=== PATIENT | female | born 1950 | race Hispanic/Latino ===

== ENCOUNTER 2017-03-20 17:19 | Inpatient (IN) | payer MEDICARE ==
[2017-03-20 19:23] LABS: Basophils % (Auto) 0.8 % (0.0-1.8); Eosinophils % (Auto) 0.9 % (0.0-4.3); Hematocrit 38.1 % (30.3-42.9); Hemoglobin 12.5 gm/dl (10.1-14.3); Mean Corpuscular HGB Conc 33 % (30-34); Mean Corpuscular Hemoglobin 30 pg (28-32); Mean Corpuscular Volume 91 fl (79-97); Platelet Count 180 K/mm3 (140-440); Red Blood Count 4.17 M/mm3 (3.65-5.03); Red Cell Distribution Width 13.3 % (13.2-15.2); White Blood Count 6.7 K/mm3 (4.5-11.0)
--- NOTE | 2017-03-20 19:29 | Emergency Department Report ---
ED Neuro Deficit HPI - General Chief Complaint: Weakness Stated Complaint: WEAKNESS Time Seen by Provider: 03/20/17 18:46 Source: patient, family, EMS Mode of arrival: Ambulatory Limitations: No Limitations - History of Present Illness Initial Comments: 66-year-old female presents to the emergency department via EMS complaining of right-sided weakness. Family reports that 4 days ago, the patient had a TIA. Patient states that she was unable to move her right arm at that time and her speech was extremely slurred. EMS was called at that time, but the patient did not go to the hospital because her symptoms had improved. Patient did see her primary care physician the next day. Family states that her physician started the patient on a statin, baby aspirin, and increased her blood pressure medication. An appointment was set up with a neurologist in [facility]. Family states that the patient is unwilling to go downtown for follow-up and they are still awaiting the patient's primary physician's office to contact them about a close her neurologist. Patient states that she has been doing better over the past several days but beginning earlier this morning, began having increasing weakness on her right side. Family states that the patient's speech is not at baseline. They describe it as if the patient's tongue was swollen. There are no other complaints. -: Gradual, days(s) (4) Location: speech, right arm Presenting Symptoms: Present: Weak/Paralyzed One Side, Unable to Speak Clearly History of same: No Place: home Severity: mild Improves With: none Worsens With: none On Anticoagulants: Yes (baby aspirin) Context: gradual onset Associated Symptoms: denies other symptoms Treatments Prior to Arrival: none - Related Data Allergies/Adverse Reactions: Allergies Allergy/AdvReac Type Severity Reaction Status Date / Time No Known Allergies Allergy Unverified 03/20/17 18:29 ED Review of Systems ROS: Stated complaint: WEAKNESS Other details as noted in HPI Comment: All other systems reviewed and negative Neurological: as per HPI, weakness, other (slurred speech) ED Past Medical Hx - Past Medical History Previous Medical History?: Yes Hx Hypertension: Yes Hx CVA: Yes (TIA) Hx Diabetes: Yes Additional medical history: Hypothyroidism - Surgical History Past Surgical History?: Yes Additional Surgical History: partial colectomy; hernia repair x2; thyroidectomy - Family History Family history: no significant - Social History Smoking Status: Never Smoker Substance Use Type: None ED Neuro Physical Exam - General Limitations: No Limitations General appearance: alert, in no apparent distress Suspected Stroke: Yes - Head Head exam: Present: atraumatic, normocephalic - Eye Eye exam: Present: normal appearance, PERRL, EOMI - ENT ENT exam: Present: normal exam, normal orophraynx, mucous membranes moist - Neck Neck exam: Present: normal inspection, full ROM. Absent: tenderness - Respiratory Respiratory exam: Present: normal lung sounds bilaterally. Absent: respiratory distress - Cardiovascular Cardiovascular Exam: Present: regular rate, normal rhythm, normal heart sounds - GI/Abdominal GI/Abdominal exam: Present: soft, normal bowel sounds. Absent: distended, tenderness - Extremities Exam Extremities exam: Present: normal inspection, full ROM. Absent: tenderness - Back Exam Back exam: Present: normal inspection, full ROM. Absent: tenderness - Neurological Exam Neurological exam: Present: alert, oriented X3. Absent: motor sensory deficit - NIHSS Assessment Interval: Baseline 1a. Level of Consciousness: alert 1b. LOC Questions: answers correctly 1c. LOC Commands: performs tasks correctly 2. Best Gaze: normal 3. Visual: no visual loss 4. Facial Palsy: normal symmetrical movement 5b. Motor Arm Right: no drift 5a. Motor Arm Left: no drift 6a. Motor Leg Left: no drift 6b. Motor Leg Right: no drift 7. Limb Ataxia: absent 8. Sensory: normal 9. Best Language: no aphasia 10. Dysarthria: normal 11. Extinction/Inattention: no abnormality Total Score: 0 Stroke Severity: No Stroke Symptoms - Skin Skin exam: Present: warm, dry, intact ED Course Vital Signs 03/20/17 03/20/17 03/20/17 18:13 18:21 18:29 Temperature 98.7 F Pulse Rate 80 Respiratory 16 Rate Blood Pressure 172/73 151/72 Blood Pressure [Left] O2 Sat by Pulse 97 97 97 Oximetry 03/20/17 03/20/17 03/20/17 18:30 18:41 18:51 Temperature Pulse Rate Respiratory Rate Blood Pressure 151/72 151/72 151/72 Blood Pressure [Left] O2 Sat by Pulse 96 97 99 Oximetry 03/20/17 03/20/17 03/20/17 19:00 19:11 19:31 Temperature Pulse Rate 102 H Respiratory 18 Rate Blood Pressure 156/75 156/75 Blood Pressure 156/75 [Left] O2 Sat by Pulse 95 96 97 Oximetry 03/20/17 19:33 Temperature Pulse Rate Respiratory 18 Rate Blood Pressure Blood Pressure [Left] O2 Sat by Pulse Oximetry - Lab Data Result diagrams: 03/20/17 19:13 03/20/17 19:13 Lab Results 03/20/17 03/20/17 03/20/17 Range/Units 19:13 19:13 19:13 WBC 6.7 (4.5-11.0) K/mm3 RBC 4.17 (3.65-5.03) M/mm3 Hgb 12.5 (10.1-14.3) gm/dl Hct 38.1 (30.3-42.9) % MCV 91 (79-97) fl MCH 30 (28-32) pg MCHC 33 (30-34) % RDW 13.3 (13.2-15.2) % Plt Count 180 (140-440) K/mm3 Lymph % (Auto) 20.6 (13.4-35.0) % Collier % (Auto) 7.7 H (0.0-7.3) % Eos % (Auto) 0.9 (0.0-4.3) % Baso % (Auto) 0.8 (0.0-1.8) % Lymph # 1.4 (1.2-5.4) K/mm3 Collier # 0.5 (0.0-0.8) K/mm3 Eos # 0.1 (0.0-0.4) K/mm3 Baso # 0.1 (0.0-0.1) K/mm3 Seg Neutrophils % 70.0 (40.0-70.0) % Seg Neutrophils # 4.7 (1.8-7.7) K/mm3 PT 13.3 (12.2-14.9) Sec. INR 1.02 (0.87-1.13) APTT 25.4 (24.2-36.6) Sec. Thrombin Time (15.1-19.6) Sec. Sodium 143 (137-145) mmol/L Potassium 4.2 (3.6-5.0) mmol/L Chloride 104.6 (98-107) mmol/L Carbon Dioxide 25 (22-30) mmol/L Anion Gap 18 mmol/L BUN 15 (7-17) mg/dL Creatinine 0.7 (0.7-1.2) mg/dL Estimated GFR > 60 ml/min BUN/Creatinine Ratio 21.42 % Glucose 93 (65-100) mg/dL Calcium 9.3 (8.4-10.2) mg/dL Troponin T < 0.010 (0.00-0.029) ng/mL 03/20/17 Range/Units 19:13 WBC (4.5-11.0) K/mm3 RBC (3.65-5.03) M/mm3 Hgb (10.1-14.3) gm/dl Hct (30.3-42.9) % MCV (79-97) fl MCH (28-32) pg MCHC (30-34) % RDW (13.2-15.2) % Plt Count (140-440) K/mm3 Lymph % (Auto) (13.4-35.0) % Collier % (Auto) (0.0-7.3) % Eos % (Auto) (0.0-4.3) % Baso % (Auto) (0.0-1.8) % Lymph # (1.2-5.4) K/mm3 Collier # (0.0-0.8) K/mm3 Eos # (0.0-0.4) K/mm3 Baso # (0.0-0.1) K/mm3 Seg Neutrophils % (40.0-70.0) % Seg Neutrophils # (1.8-7.7) K/mm3 PT (12.2-14.9) Sec. INR (0.87-1.13) APTT (24.2-36.6) Sec. Thrombin Time 15.5 (15.1-19.6) Sec. Sodium (137-145) mmol/L Potassium (3.6-5.0) mmol/L Chloride (98-107) mmol/L Carbon Dioxide (22-30) mmol/L Anion Gap mmol/L BUN (7-17) mg/dL Creatinine (0.7-1.2) mg/dL Estimated GFR ml/min BUN/Creatinine Ratio % Glucose (65-100) mg/dL Calcium (8.4-10.2) mg/dL Troponin T (0.00-0.029) ng/mL - Radiology Data Radiology results: report reviewed, image reviewed CT of the brain shows no acute intracranial abnormality. There appears to be some chronic sequela of atrophy and microvascular angiopathy. - Medical Decision Making Lab and imaging results reviewed and discussed with the patient. Patient is to be admitted by the hospitalist for further evaluation of TIA/stroke. - Differential Diagnosis TIA, CVA, electrolyte disorder - Thrombolytic Inclusion/Exclusion Thrombolytic Exclusion Criteria: Symptom Onset > 3 Hours Critical care attestation.: If time is entered above; I have spent that time in minutes in the direct care of this critically ill patient, excluding procedure time. ED Disposition Clinical Impression: TIA (transient ischemic attack) Qualifiers: Transient cerebral ischemia type: unspecified Qualified Code(s): G45.9 - Transient cerebral ischemic attack, unspecified Disposition: OP ADMITTED IP TO THIS HOSP Is pt being admited?: Yes Condition: Stable Referrals: PRIMARY CARE, [Primary Care Provider] - 3-5 Days Time of Disposition: 19:55
[2017-03-20 19:33] LABS: INR 1.02 (0.87-1.13)
[2017-03-20 19:34] LABS: Partial Thromboplastin Time 25.4 Sec. (24.2-36.6)
[2017-03-20 19:44] LABS: Anion Gap 18 mmol/L; BUN/Creatinine Ratio 21.42; Blood Urea Nitrogen 15 mg/dL (7-17); Calcium 9.3 mg/dL (8.4-10.2); Carbon Dioxide 25 mmol/L (22-30); Chloride 104.6 mmol/L (98-107); Glucose 93 mg/dL (65-100); Potassium 4.2 mmol/L (3.6-5.0); Sodium 143 mmol/L (137-145)
--- NOTE | 2017-03-20 19:47 | Cat Scan Report ---
FINAL REPORT EXAM: CT HEAD/BRAIN WO CON HISTORY: neuro deficits \T\lt; 6hrs or sx present upon awakening TECHNIQUE: CT imaging is acquired through the brain without contrast. Transaxial reformations are provided. PRIORS: None. FINDINGS: Ventricles and CSF spaces are within normal limits. Scattered deep and subcortical white matter hypodense foci are confluent in some areas and are compatible with microvascular angiopathy. No acute intracranial hemorrhage or mass effect. Calvarium and superficial scalp are intact. Hyperostosis frontalis. Partially visualized paranasal sinuses are clear. Mastoids are clear. IMPRESSION: No acute intracranial abnormality. Consider MRI follow-up. There are chronic sequela of atrophy and microvascular angiopathy.
[2017-03-20] MEDS ORDERED: REGLAN PO PRN (19:52)
[2017-03-20] MEDS ORDERED: DUONEB 0.5 MG-3 MG/3 ML SOLN IH PRN (19:52)
[2017-03-20] MEDS ORDERED: SODIUM CHLORIDE FLUSH SYRINGE 10 ML IV PRN (19:52)
[2017-03-20] MEDS ORDERED: DULCOLAX PR PRN (19:52)
[2017-03-20] MEDS ORDERED: TYLENOL PO PRN (19:52)
[2017-03-20] MEDS ORDERED: ZOFRAN IV PRN (19:52)
[2017-03-20] MEDS ORDERED: PHENERGAN PR PRN (19:52)
[2017-03-20] MEDS ORDERED: MILK OF MAGNESIA PO PRN (19:52)
--- NOTE | 2017-03-20 19:52 | History and Physical Report ---
History of Present Illness Chief complaint: I feel weak History of present illness: 66 YO Female with HTN, DM, TIA, Malnutrition, Hypothyroidism presents to ED for evaluation. Pt family states that patient has been experiencing right sided weakness, slurred speech, and right sided weakness for the past 4 days. Symptoms resolved. EMS was called at that time, but the patient did not seek emergency medical care, but chose to see PCP the following day. Pt treated as outpatient with statin, baby aspirin, and adjusting blood pressure medication. Pt instructed to f/u with neurology but did not keep the established appointment. Family states that the patient was unwilling to go downtown.Pt family deny reports of fever, chills, CP, Palpitations, NVD, Falls, trauma, incontinence, skin rashes, productive cough, vertigo, or seizures. Past History Past Medical History: diabetes, hypertension, hyperlipidemia, stroke Past Surgical History: thyroidectomy, hernia repair, bowel surgery Social history: single. denies: smoking, alcohol abuse, prescription drug abuse Family history: diabetes, hypertension Medications and Allergies Allergies Allergy/AdvReac Type Severity Reaction Status Date / Time No Known Allergies Allergy Unverified 03/20/17 18:29 Home Medications Medication Instructions Recorded Confirmed Last Taken Type AtorvaSTATin [Lipitor] 80 mg PO HS 03/21/17 03/21/17 1 Day Ago History Levothyroxine [Synthroid] 88 mcg PO QAM 03/21/17 03/21/17 Unknown History glipiZIDE [glipiZIDE ER] 5 mg PO QAM 03/21/17 03/21/17 Unknown History Review of Systems ROS unobtainable: due to mental status Exam - Constitutional Vitals: Temp Pulse Resp BP Pulse Ox 98.7 F 102 H 18 156/75 97 03/20/17 18:29 03/20/17 19:31 03/20/17 19:33 03/20/17 19:31 03/20/17 19:31 General appearance: Present: mild distress, cachectic - EENT Eyes: Present: PERRL ENT: hearing intact - Respiratory Respiratory: bilateral: diminished - Cardiovascular Rhythm: regular Heart Sounds: Present: S1 & S2 - Extremities Extremities: no ischemia Peripheral Pulses: within normal limits - Abdominal General gastrointestinal: Present: soft, non-tender, non-distended - Integumentary Integumentary: Present: clear, dry, decreased turgor - Musculoskeletal Musculoskeletal: right sided weakness - Psychiatric Psychiatric: no intact judgment & insight, no memory intact - Neurologic Neurologic: focal deficits, no moves all extremities, no gait normal Results - Labs CBC & Chem 7: 03/20/17 19:13 03/20/17 19:13 Labs: Abnormal lab results 03/20/17 Range/Units 19:13 Mcdowell % (Auto) 7.7 H (0.0-7.3) % Assessment and Plan - Patient Problems (1) CVA (cerebral vascular accident) Current Visit: Yes Status: Acute Qualifiers: CVA mechanism: C Precerebral and cerebral artery: P Laterality of affected vessel: L Plan to address problem: Stroke protocol: MRI, MRA brain, Echo, carotid doppler, antiplatelet therapy, PT /OT, Speech therapy, Rehab consult (2) Right hemiparesis Current Visit: Yes Status: Acute Plan to address problem: secondary to CVA, PT consulted, (3) HTN (hypertension) Current Visit: Yes Status: Acute Qualifiers: Hypertension type: H Plan to address problem: Monitor bp q shift, resume home medication (4) Diabetes Current Visit: Yes Status: Acute Qualifiers: Diabetes mellitus type: D Diabetes mellitus complication status: D Diabetes mellitus complication detail: D Diabetic retinopathy severity: D Proliferative retinopathy type: P Diabetes mellitus macular edema: D Diabetes mellitus chcf insulin use: D Laterality: L Chronic kidney disease stage: C Plan to address problem: ADA diet, insulin, accu check (5) DVT prophylaxis Current Visit: Yes Status: Acute
[2017-03-20] MEDS ORDERED: PLAVIX PO ONE (19:58)
--- NOTE | 2017-03-20 20:04 | Admit Criteria Form ---
Admission Criteria Documentation: TRANSIENT ISCHEMIC ATTACK (TIA) Clinical Indications for Admission to Inpatient Care (Place 'X' for any and all applicable criteria): Admission is indicated for ANY ONE of the following(1)(2)(3)(4)(5): [ ]I. Immediate inpatient procedure is needed (eg, endarterectomy). [X ]II. Inpatient admission required rather than observation care (Also use Transient Ischemic Attack (TIA): Observation Care Criteria as appropriate) because of ANY ONE of the following: [X ]a) Focal neurologic signs or symptoms persist or recurring [ ]b) Cardiac arrhythmias of immediate concern [ ]c) Clinically significant cardiac disorder identified that requires inpatient care (eg, severe valvular disease, atrial myxoma, cardiomyopathy) [X ]d) Hypertension requiring inpatient treatment [ ]e) Parenteral anticoagulation required (eg, alternative forms of anticoagulation not appropriate or not feasible) as indicated by ALL of the following(13): [ ]i) Temporary subtherapeutic anticoagulation unacceptable because of high risk of short-term venous or arterial thromboembolism due to ANY ONE of the following(14)(15)(16): [ ]1) Atrial fibrillation suspected as etiology of TIA(17)(18)(19)(20)(21) [ ]2) Venous thromboembolism within past 12 months [ ]3) Underlying malignancy [ ]4) Patient with mechanical cardiac valve(22)( 23) [ ]5) Underlying hypercoagulable state (eg, protein C or protein S deficiency antithrombin deficiency, antiphospholipid antibodies) [ ]6) Patient at temporary high risk of thromboembolism (eg, status post orthopedic surgery) [ ]ii) Contraindications to outpatient use of "bridging" agent or alternative oral anticoagulant[B] as indicated by ALL of the following: [ ]1) Contraindication to outpatient use of low- molecular-weight heparin as "bridging" agent as indicated by ANY ONE of the following(15): [ ]A. Documented current or history of heparin-induced thrombocytopenia(24) [ ]B. Severe thrombocytopenia (eg, platelet count less than 50,000/mm3 ([id number]/L) [ ]C. Documented allergy to heparin, low- molecular-weight heparin, or pork products [ ]D. Renal failure (creatinine clearance less than 30 mL/min/1.73m2 (0.50mL/sec/1.73m2) or on dialysis) [ ]E. Inability to manage self-injection ( eg, by patient, caregiver, or visiting nurse) [ ]2) Contraindication to outpatient use of fondaparinux as "bridging" agent as indicated by ANY ONE of the following(25)(26 )(27)(28): [ ]A. Severe thrombocytopenia (eg, platelet count less than 50,000/mm3 (50 x109/L)) [ ]B.Hypersensitivity to fondaparinux, related drugs, or product components [ ]C.Renal failure (creatinine clearance less than 30 mL/min/1.73m2 (0.50mL/sec/1.73m2) or on dialysis) [ ]D.Inability to manage self-injection ( eg, by patient, caregiver, or visiting nurse [ ]3. Oral direct thrombin inhibitor (eg, dabigatran) or oral coagulation factor Xa inhibitor (eg, rivaroxaban, apixaban) not appropriate as oral anticoagulation (eg, indication not appropriate) or contraindicated (eg, hypersensitivity, creatinine clearance less than 15 mL/min/1.73m2 ( 0.25 mL/sec/1.73m2) or on dialysis). [ ]f) Continuous IV infusion of anticoagulant, platelet inhibitor, vasoactive or antiarrhythmia(18)(19) [ ]g) Other condition, treatment, or monitoring requiring inpatient admission [ ]III. Contraindications and/or Inappropriate clinical situations for Observational Care in patients with Transient Ischemic Attack (TIA), when ANY ONE of the following is required: [ ]a) Patient with persistent or severe neurological deficit 24 [ ]b) Patient with acute CVA or other identified pathology should be admitted to inpatient for further care 25 [ ]IV. General contraindications and/or Inappropriate clinical situations for Observational Care in patients with Transient Ischemic Attack (TIA), when ANY ONE of the following is required: [ ]a) Prediction of prolongation of LOS based on ANY ONE of the following may be considered as a contraindication for observational care 2, 3, 4, 5, 6, 7, 8, 9, 10, 11 [ ]i) Age > 65 yrs. [ ]ii) Patient arriving by ambulance [ ]iii) Patient with high acuity [ ]iv) Patient requiring vital sign monitoring [ ]v) Patient on IV medication [ ]b) Systolic blood pressures 180mmHg 3,12 [ ]c) Patient with altered mental status including delirium and other alteration of consciousness, (3) [ ]d) Patient whose discharge disposition will be to a halfway home or rehabilitation home should not be managed in Emergency Department Observation Unit. CMS rule requires 3 days hospital stay before such placement.3,13 [ ]e) Patient with failure to thrive due to broad array of etiologies 3,16,17 [ ]f) Inability to ambulate 3,14 Extended stay beyond goal length of stay may be needed for(4)(30)(32): [ ]a) Parenteral anticoagulation required [ ]b) Dangerous arrhythmia [ ]c) Cardiac valvular disorder, atrial myxoma, cardiomyopathy [ ]d) Uncontrolled severe hypertension [ ]e) Severe carotid stenosis [ ]f) Active comorbidities (eg, heart failure) [ ]g) Extracranial vertebrobasilar disease(29) [ ]h) Clinical evolution of TIA into cerebrovascular accident (stroke) The original [employer] content created by [employer] has been revised. The portions of thecontent which have been revised are identified through the use of italic text or in bold, and [facility] has neither reviewed nor approved the modified material. All other unmodified content is copyright [employer]. Please see references footnoted in the original [employer] edition 2016 Admission Criteria Met: Yes
[2017-03-20] MEDS ORDERED: PROVENTIL IH PRN (20:18)
[2017-03-20 20:56] LABS: Bacteria,Urine 1+ /HPF (Negative); Bilirubin,Urine NEG (Negative); Blood,Urine NEG (Negative); Ketones,Urine TR mg/dL (Negative); Leukocyte Esterase,Urine LG (Negative); Mucus,Urine FEW /HPF; Nitrite,Urine NEG (Negative); Protein,Urine <15 mg/dL mg/dL (Negative); Urobilinogen,Urine < 2.0 mg/dL (<2.0)
[2017-03-20] MEDS: ZOCOR PO SCH (22:49)
[2017-03-21] MEDS: ASPIRIN PO SCH (13:52)
--- NOTE | 2017-03-21 14:08 | Magnetic Resonance Report ---
FINAL REPORT EXAM: MR BRAIN WO CON HISTORY: stroke TECHNIQUE: MRI of the brain without IV contrast. PRIORS: None currently available. FINDINGS: 11 x 19 mm focal area of restricted diffusion in the left periventricular white matter along the avalos radiata is consistent with acute ischemia. T2/FLAIR hyperintensities in the periventricular and subcortical white matter are nonspecific. Differential diagnosis includes microvascular ischemic disease, demyelinating process, and trauma. Midline structures are unremarkable. There is no tonsillar ectopy. Age appropriate espino-white matter differentiation is noted. There is no hydrocephalus. There is no mass. There is no hemorrhage. There is no midline shift. The CP angles are grossly noted. Major flow voids are present. Paranasal sinuses are unremarkable. Globes are intact. Calvarial signal characteristics are grossly unremarkable. Extracranial soft tissues are intact. IMPRESSION: Focal acute ischemia along the left coronal radiata. Chronic small vessel ischemic disease.
--- NOTE | 2017-03-21 14:10 | Magnetic Resonance Report ---
FINAL REPORT EXAM: MR MRA/MRV HEAD WO CON HISTORY: stroke TECHNIQUE: MRA of the Head without IV contrast. PRIORS: None currently available. FINDINGS: Head: Left vertebral artery contribution to the basilar artery is not evident. Single dominant right vertebral artery suspected. Hypoplastic right P1 segment. Right P2 segment filling through a posterior communicating artery. Left posterior communicating artery also identified. Above findings probably represent congenital variations. There is no aneurysm, dissection, vascular malformation, or significant vascular stenosis. There is no evidence for vasculitis. IMPRESSION: Unremarkable.
--- NOTE | 2017-03-21 17:50 | Progress Note ---
Assessment and Plan Assessment and plan: 1. Acute CVA CT negative, but brain MRI showing focal acute ischemia left avalos radiata Out of window for TPA Lipid panel obtained Started on antiplatelet and statin therapy PT/OT/ST consulted 2. Hypertension Antihypertensives on hold to allow permissive hypertension given acute stroke Goal SBP 140-160 for the first 48 hours 3. Diabetes On glipizide at home but hemoglobin A1c 5.8 Discontinue it Monitoring BS 4. Hypothyroidism Reason levothyroxine 5. DVT/GI prophylaxis History Interval history: Dysarthria, slurred speech; no specific complaints Family at bedside, updated Hospitalist Physical - Constitutional Vitals: Temp Pulse Resp BP Pulse Ox 98.4 F 72 20 167/93 96 03/21/17 08:00 03/21/17 08:00 03/21/17 08:00 03/21/17 08:00 03/21/17 08:00 General appearance: Present: no acute distress - EENT Eyes: Present: PERRL, EOM intact. Absent: scleral icterus, conjunctival injection - Neck Neck: Present: supple, normal ROM. Absent: masses or JVD - Respiratory Respiratory effort: normal Respiratory: bilateral: CTA, negative: rales, rhonchi - Cardiovascular Rhythm: regular Heart Sounds: Present: S1 & S2. Absent: systolic murmur - Extremities Extremities: no ischemia - Abdominal General gastrointestinal: soft, non-tender, non-distended, normal bowel sounds - Integumentary Integumentary: Present: warm, dry. Absent: jaundice, rash - Psychiatric Psychiatric: cooperative - Neurologic Neurologic: other (facial droop, right-sided hemiparesis) Results - Labs CBC & Chem 7: 03/20/17 19:13 03/20/17 19:13 Labs: Laboratory Last Values WBC 6.7 K/mm3 (4.5-11.0) 03/20/17 19:13 RBC 4.17 M/mm3 (3.65-5.03) 03/20/17 19:13 Hgb 12.5 gm/dl (10.1-14.3) 03/20/17 19:13 Hct 38.1 % (30.3-42.9) 03/20/17 19:13 MCV 91 fl (79-97) 03/20/17 19:13 MCH 30 pg (28-32) 03/20/17 19:13 MCHC 33 % (30-34) 03/20/17 19:13 RDW 13.3 % (13.2-15.2) 03/20/17 19:13 Plt Count 180 K/mm3 (140-440) 03/20/17 19:13 Lymph % (Auto) 20.6 % (13.4-35.0) 03/20/17 19:13 [place] % (Auto) 7.7 % (0.0-7.3) H 03/20/17 19:13 Eos % (Auto) 0.9 % (0.0-4.3) 03/20/17 19:13 Baso % (Auto) 0.8 % (0.0-1.8) 03/20/17 19:13 Lymph # 1.4 K/mm3 (1.2-5.4) 03/20/17 19:13 [place] # 0.5 K/mm3 (0.0-0.8) 03/20/17 19:13 Eos # 0.1 K/mm3 (0.0-0.4) 03/20/17 19:13 Baso # 0.1 K/mm3 (0.0-0.1) 03/20/17 19:13 Seg Neutrophils % 70.0 % (40.0-70.0) 03/20/17 19:13 Seg Neutrophils # 4.7 K/mm3 (1.8-7.7) 03/20/17 19:13 PT 13.3 Sec. (12.2-14.9) 03/20/17 19:13 INR 1.02 (0.87-1.13) 03/20/17 19:13 APTT 25.4 Sec. (24.2-36.6) 03/20/17 19:13 Thrombin Time 15.5 Sec. (15.1-19.6) 03/20/17 19:13 Sodium 143 mmol/L (137-145) 03/20/17 19:13 Potassium 4.2 mmol/L (3.6-5.0) 03/20/17 19:13 Chloride 104.6 mmol/L (98-107) 03/20/17 19:13 Carbon Dioxide 25 mmol/L (22-30) 03/20/17 19:13 Anion Gap 18 mmol/L 03/20/17 19:13 BUN 15 mg/dL (7-17) 03/20/17 19:13 Creatinine 0.7 mg/dL (0.7-1.2) 03/20/17 19:13 Estimated GFR > 60 ml/min 03/20/17 19:13 BUN/Creatinine Ratio 21.42 % 03/20/17 19:13 Glucose 93 mg/dL (65-100) 03/20/17 19:13 Hemoglobin A1c 5.8 % (4-6) 03/21/17 05:19 Calcium 9.3 mg/dL (8.4-10.2) 03/20/17 19:13 Troponin T < 0.010 ng/mL (0.00-0.029) 03/20/17 19:13 Triglycerides 86 mg/dL (2-149) 03/21/17 05:19 Cholesterol 107 mg/dL (50-199) 03/21/17 05:19 LDL Cholesterol Direct 44 mg/dL (50-130) L 03/21/17 05:19 HDL Cholesterol 46 mg/dL (40-59) 03/21/17 05:19 Cholesterol/HDL Ratio 2.32 % 03/21/17 05:19 Urine Color Straw (Yellow) 03/20/17 20:30 Urine Turbidity Clear (Clear) 03/20/17 20:30 Urine pH 6.0 (5.0-7.0) 03/20/17 20:30 Ur Specific [place] 1.005 (1.003-1.030) 03/20/17 20:30 Urine Protein <15 mg/dl mg/dL (Negative) 03/20/17 20:30 Urine Glucose (UA) Neg mg/dL (Negative) 03/20/17 20:30 Urine Ketones Tr mg/dL (Negative) 03/20/17 20:30 Urine Blood Neg (Negative) 03/20/17 20:30 Urine Nitrite Neg (Negative) 03/20/17 20:30 Urine Bilirubin Neg (Negative) 03/20/17 20:30 Urine Urobilinogen < 2.0 mg/dL (<2.0) 03/20/17 20:30 Ur Leukocyte Esterase Lg (Negative) 03/20/17 20:30 Urine WBC (Auto) 5.0 /HPF (0.0-6.0) 03/20/17 20:30 Urine RBC (Auto) 1.0 /HPF (0.0-6.0) 03/20/17 20:30 Urine Bacteria (Auto) 1+ /HPF (Negative) 03/20/17 20:30 Urine Mucus Few /HPF 03/20/17 20:30 - Imaging and Cardiology CT Scan - head: report reviewed (no acute abnormality) MRI - head: report reviewed (focal acute ischemia left coronary radiata) Venous US: pending Imaging and Cardiology: ECHO - normal LV function with EF 55-60%, normal diastolic filling
[2017-03-21] MEDS ORDERED: NACL 0.9% 1000 ML 1,000 ML IV ONE (18:20)
[2017-03-21] MEDS: ZOCOR PO SCH (22:07)
[2017-03-22] MEDS: ASPIRIN PO SCH (09:07)
[2017-03-22] MEDS ORDERED: SYNTHROID PO SCH (10:00)
--- NOTE | 2017-03-22 11:42 | Consultation ---
History of Present Illness Consult date: 03/22/17 Requesting physician: MATILDE HERRERA Reason for Consult: stroke Chief complaint: R sided weakness History of present illness: 66 YO F p/w acute onset R sided weakness on 03/20 @ 3:30. Sx are constant. There are no clear aggravating, relieving or temporal factors. Severity was enough to cause inability to effectively use the right side.she affirms slurred speech. She had a brief event lasting 15 mins of similar sx on 03/16 and followed up w/ PCP who placed her on ASA/statin and increased BP meds. Past History Past Medical History: diabetes, hypertension, hyperlipidemia, stroke Past Surgical History: thyroidectomy, hernia repair, bowel surgery Social history: single. denies: smoking, alcohol abuse, prescription drug abuse , IV drug use Family history: diabetes, hypertension Medications and Allergies Allergies Allergy/AdvReac Type Severity Reaction Status Date / Time No Known Allergies Allergy Unverified 03/20/17 18:29 Home Medications Medication Instructions Recorded Confirmed Last Taken Type AtorvaSTATin [Lipitor] 80 mg PO HS 03/21/17 03/21/17 1 Day Ago History Levothyroxine [Synthroid] 88 mcg PO QAM 03/21/17 03/21/17 Unknown History glipiZIDE [glipiZIDE ER] 5 mg PO QAM 03/21/17 03/21/17 Unknown History Active Meds: Active Medications Acetaminophen (Tylenol) 650 mg PO Q4H PRN PRN Reason: Pain, Mild (1-3) Albuterol (Proventil) 2.5 mg IH Q6HRT PRN PRN Reason: Wheezing Aspirin (Aspirin) 325 mg PO QDAY [facility] Last Admin: 03/22/17 09:07 Dose: 325 mg Bisacodyl (Dulcolax) 10 mg NM QDAY PRN PRN Reason: Constipation Levothyroxine Sodium (Synthroid) 88 mcg PO QAM [facility] Last Admin: 03/22/17 09:07 Dose: 88 mcg Magnesium Hydroxide (Milk Of Magnesia) 30 ml PO Q4H PRN PRN Reason: Constipation Metoclopramide HCl (Reglan) 10 mg PO Q6H PRN PRN Reason: Nausea And Vomiting Ondansetron HCl (Zofran) 4 mg IV Q8H PRN PRN Reason: N/V unrelieved by Reglan Promethazine HCl (Phenergan) 25 mg NM Q6H PRN PRN Reason: Nausea And Vomiting Simvastatin (Zocor) 20 mg PO QHS [facility] Last Admin: 03/21/17 22:07 Dose: 20 mg Sodium Chloride (Sodium Chloride Flush Syringe 10 Ml) 10 ml IV PRN PRN PRN Reason: LINE FLUSH Review of Systems All systems: negative Neurological: weakness, change in speech, balance difficulties, gait dysfunction , motor disturbance, no paralysis, no parathesias, no numbness, no tingling, no seizures, no syncope, no sensory deficit Physical Examination - Vital Signs Vital Signs: Vital Signs Pulse Ox 97 03/20/17 18:13 - Constitutional General appearance: comfortable - EENT EENT: Present: ATNC, PERRL, mucous membranes moist, hearing intact, vision intact - Respiratory Respiratory: Present: chest non-tender, normal breath sounds, no respiratory distress - Cardiovascular Cardiovascular: Present: regular rate Extremities: Present: no peripheral edema bilatateraly, no clubbing, cyanosis, no inflammation, no ischemia or petechiae - Gastrointestinal Gastrointestinal: Present: normoactive bowel sounds, soft, non-distended - Integumentary Integumentary: Present: normal - Neurologic Cranial nerve examination: PERRL, EOMI, VFF, V1/V2/V3 grossly intact, tongue midline, intact, intact shoulder shrug, intact cough reflex, Intact Vestibulo- ocular r, intact corneal reflex, facial droop (on R mild), normal palatal elevation Speech examination: other (dysarthria) Sensorimotor examination: hemiparesis (4/5 on R) Motor examination - right side: 4/5: biceps, triceps, wrist flexion, wrist extension, logistics clerk, hip flexors, knee extensors, dorsiflexion, toe extension (EHL) , plantarflexion Motor examination - left side: 5/5: biceps, triceps, wrist flexion, wrist extension, logistics clerk, hip flexors, knee extensors, dorsiflexion, toe extension (EHL) , plantarflexion Detailed sensory examination: intact, light touch, temperature Reflex and gait examination: Babinski's sign (on R) Reflexes: 0: ankle, 3+: bicep, knee, tricep - Musculoskeletal Musculoskeletal: Present: no fluid collection, no pain, normal range of motion - Psychiatric Psychiatric: Present: mood/affect appropriate, cooperative Results - Laboratory Findings CBC and BMP: 03/20/17 19:13 03/20/17 19:13 Abnormal Lab Findings: Abnormal Labs 03/21/17 05:19 LDL Cholesterol Direct 44 L Assessment and Plan 66 YO F Hx HTN/DM2/HLD p/w pure motor acute lacunar stroke confirmed on MRI Brain as infarct in L avalos radiata. CDs/TTE neg. LDL 44. MRA Head neg. Plan and Recommendation: 1. No indication for pharmacologic thrombolysis with IV tPA or mechanical thrombectomy due to last known normal > 6 hrs from presentation. Current NIHSS 4. 2. Telemetry bed w/ Q4 hour neuro checks 3. Can lower MAPs by 10-15% daily to reach goal SBP 120-160 after permissive HTN period 4. Secondary stroke prevention: ASA 325mg Daily x 1 then 81mg QDay & upgrade to full dose statin therapy (Crestor 20mg or 40mg OR Lipitor 40mg or 80mg Daily OR Zocor 40mg QDay) for goal LDL < 70. No firm indication at this point for therapeutic anticoagulation as pt has not had AFib captured on telemetry monitoring. 5. F/E/N: isotonic IVF prn, prn replete, bedside speech/swallow eval prior to PO intake. 6. DVT Prophylaxis 7. Stroke education, PT/OT/Speech Therapy consults, CM evaluation 8. For any changes in neurologic status, pls obtain STAT CTH w/o contrast and call neurology 9. If pt remains stable, no neurologic contraindication to discharge w/ outpt neuro follow up.
--- NOTE | 2017-03-22 12:39 | Consultation ---
History of Present Illness - Reason for Consult Consult date: 03/22/17 Evaluate for Acute IRU - History of Present Illness 66 y.o. female who presented with acute onset of right sided weakness and dysarthria. Initial CT Brain noted to be negative; however, Brain MRI showed acute left avalos radiata infarct. Pt reports improved right sided weakness, however, with ongoing gait and balance deficits; also with ongoing dysarthria; pending FELLER MACHINE OPERATOR evaluation. Consult placed for post-acute placement recommendations. Past History Past Medical History: hypertension, hypothyroidism Past Surgical History: thyroidectomy, hernia repair, bowel surgery Social history: single, lives with family (mother). denies: smoking, alcohol abuse Family history: diabetes, hypertension Medications and Allergies Allergies Allergy/AdvReac Type Severity Reaction Status Date / Time No Known Allergies Allergy Unverified 03/20/17 18:29 Home Medications Medication Instructions Recorded Confirmed Last Taken Type AtorvaSTATin [Lipitor] 80 mg PO HS 03/21/17 03/21/17 1 Day Ago History Levothyroxine [Synthroid] 88 mcg PO [facility] 03/21/17 03/21/17 Unknown History glipiZIDE [glipiZIDE ER] 5 mg PO M 03/21/17 03/21/17 Unknown History Active Meds: Active Medications Acetaminophen (Tylenol) 650 mg PO Q4H PRN PRN Reason: Pain, Mild (1-3) Albuterol (Proventil) 2.5 mg IH Q6HRT PRN PRN Reason: Wheezing Aspirin (Aspirin) 325 mg PO QDAY [facility] Last Admin: 03/22/17 09:07 Dose: 325 mg Bisacodyl (Dulcolax) 10 mg MO QDAY PRN PRN Reason: Constipation Levothyroxine Sodium (Synthroid) 88 mcg PO [facility] Last Admin: 03/22/17 09:07 Dose: 88 mcg Magnesium Hydroxide (Milk Of Magnesia) 30 ml PO Q4H PRN PRN Reason: Constipation Metoclopramide HCl (Reglan) 10 mg PO Q6H PRN PRN Reason: Nausea And Vomiting Ondansetron HCl (Zofran) 4 mg IV Q8H PRN PRN Reason: N/V unrelieved by Reglan Promethazine HCl (Phenergan) 25 mg MO Q6H PRN PRN Reason: Nausea And Vomiting Simvastatin (Zocor) 20 mg PO QHS [facility] Last Admin: 03/21/17 22:07 Dose: 20 mg Sodium Chloride (Sodium Chloride Flush Syringe 10 Ml) 10 ml IV PRN PRN PRN Reason: LINE FLUSH Review of Systems All systems: negative Ears, nose, mouth and throat: no headache Cardiovascular: no chest pain Respiratory: no cough Gastrointestinal: no nausea, no vomiting Neurological: balance difficulties, gait dysfunction Exam - Constitutional Vitals: Vital Signs - 12hr 03/22/17 03/22/17 03/22/17 01:10 03:43 05:34 Temperature 98.5 F 97.8 F Pulse Rate 86 Pulse Rate [ 76 72 Left Radial] Respiratory 20 20 Rate Blood Pressure 154/72 155/70 [Left Radial Artery] O2 Sat by Pulse 98 100 Oximetry General appearance: no acute distress, other (sitting up in bed) - EENT Eyes: EOM intact ENT: hearing intact - Neck Neck: supple, normal ROM - Respiratory Respiratory effort: normal Respiratory: bilateral: CTA - Cardiovascular Rhythm: regular Heart Sounds: Present: S1 & S2 - Extremities Extremities: No edema - Gastrointestinal General gastrointestinal: Present: soft, non-tender, non-distended, normal bowel sounds - Integumentary Integumentary: Present: clear - Neurologic Neurologic: moves all extremities (4/5 throughout), other (mild facial droop; + dysarthria; sensation grossly intact) - Psychiatric Psychiatric: appropriate mood/affect, intact judgment & insight, memory intact, cooperative - Allied health notes Allied health notes reviewed: PT (Moe for transfers; CGA-maxA for gait with noted loss of balance) FIMS assesment as documented by PT/OT/ST: Locomotion- walk/wheelchair Ambulation Distance 100 - Labs CBC & Chem 7: 03/20/17 19:13 03/20/17 19:13 Labs: Laboratory Results - last 72 hr 03/20/17 03/21/17 03/21/17 20:30 05:19 05:19 POC Glucose Hemoglobin A1c 5.8 Triglycerides 86 Cholesterol 107 LDL Cholesterol Direct 44 L HDL Cholesterol 46 Cholesterol/HDL Ratio 2.32 Urine Color Straw Urine Turbidity Clear Urine pH 6.0 Ur Specific [place] 1.005 Urine Protein <15 mg/dl Urine Glucose (UA) Neg Urine Ketones Tr Urine Blood Neg Urine Nitrite Neg Urine Bilirubin Neg Urine Urobilinogen < 2.0 Ur Leukocyte Esterase Lg Urine WBC (Auto) 5.0 Urine RBC (Auto) 1.0 Urine Bacteria (Auto) 1+ Urine Mucus Few 03/21/17 08:11 POC Glucose 81 Hemoglobin A1c Triglycerides Cholesterol LDL Cholesterol Direct HDL Cholesterol Cholesterol/HDL Ratio Urine Color Urine Turbidity Urine pH Ur Specific [place] Urine Protein Urine Glucose (UA) Urine Ketones Urine Blood Urine Nitrite Urine Bilirubin Urine Urobilinogen Ur Leukocyte Esterase Urine WBC (Auto) Urine RBC (Auto) Urine Bacteria (Auto) Urine Mucus Assessment and Plan Patient was assessed and evaluated for Acute Inpatient Rehab Unit. 66 y.o. female with acute left avalos radiata infarct, ongoing dysarthria, dysphagia, unsteady gait. Pt would benefit from from inpatient rehabilitation course to address functional deficits in mobility and self cares. Pt has been participating well with therapies and is thought to be able to participate in 3 hours of therapy including PT/OT/FELLER MACHINE OPERATOR, 5 days per week, and make reasonable functional improvement prior to returning home. Pt previously noted to be independent with functional mobility and self cares, however is now requiring CGA-maxA for bed mobility/transfers/gait with significant balance deficits. Potential barriers/complications that would currently prevent a safe return home or transfer to a lower level of care include impaired mobility, balance, strength; risk for recurrent/extension of CVA, falls, DVT, PE, syncope, parasthesias, headaches, seizures, aspiration, hypotension. Pt has good overall medical prognosis and good rehab potential, good, is motivated to participate, and has good family support at discharge (sister available at discharge). Will need ongoing follow-up for CVA education, HTN management, dysphagia. Pt will be followed by rehab physician at minimum 3 days/week. Pt will require precertification prior to IPR admission, which has been initiated. Anticipate IRU admission when cleared by IM and evaluated by FELLER MACHINE OPERATOR for appropriate diet. Thank you for consultation. - Patient Problems (1) CVA (cerebral vascular accident) Current Visit: Yes Status: Acute Qualifiers: CVA mechanism: C Precerebral and cerebral artery: P Laterality of affected vessel: L (2) Abnormality of gait following cerebrovascular accident (CVA) Current Visit: Yes Status: Acute (3) Dysphagia as late effect of cerebrovascular accident (CVA) Current Visit: Yes Status: Acute (4) Dysarthria as late effect of cerebrovascular accident (CVA) Current Visit: Yes Status: Acute (5) HTN (hypertension) Current Visit: Yes Status: Acute Qualifiers: Hypertension type: essential hypertension Qualified Code(s): I10 - Essential (primary) hypertension
[2017-03-22 15:04] VITALS: BP 145/72
--- NOTE | 2017-03-22 16:50 | Discharge Summary ---
Providers - Providers Date of Admission: 03/20/17 19:52 Date of discharge: 03/22/17 Attending physician: MATILDE HERRERA 03/21/17 07:59 Consult Acute Rehabilitation [CONS] Routine Consulting Provider: LUKE MURRIETA Reason For Exam: cva, weakness 03/21/17 18:22 Speech Therapy Evaluation and Treat [CONS] Routine Reason For Exam: Failed bedside swallow Eval. 03/22/17 11:21 Consult Acute Rehabilitation [CONS] Routine Consulting Provider: LUKE MURRIETA Reason For Exam: stroke 03/22/17 12:40 Consult to Physician [CONS] Routine Consulting Provider: STEPHNAIE HUGHES Reason For Exam: Stroke like symptoms Place consult to:: Dr. Hughes Notified:: Yris ARCOS Phone number called:: Ext [phone] If yes, spoke with:: Voicemail with consult info left for Nuha Dunlap Time called:: 12:37 Primary care physician: MEAT CLERK Hospitalization Reason for admission: difficulty speaking, right-sided weakness Condition: Stable Pertinent studies: CT head MRI/A brain Echocardiogram Carotid Doppler Hospital course: Patient is a 66 years old female with past medical history significant for hypertension, diabetes, hypothyroidism, with a recent TIA, who presented to the hospital for right-sided weakness and speech difficulties. She was diagnosed with acute stroke (left coronary radiata). She was out of window for TPA administration. Was started on antiplatelet and statin therapy. Was also evaluated by PT/OT/ST and was considered a good candidate for acute inpatient rehabilitation. Antihypertensives have been on hold to allow permissive hypertension 48 hours post stroke and SBP remained in 130-140s. Oral antidiabetics discontinued as hemoglobin A1c 5.8. Discharge diagnosis: 1. Acute CVA 2. Hypertension 3. Diabetes - A1C<6 4. Hypothyroidism Disposition: DC/TX INPT REHAB FACILITY Time spent for discharge: 35 minutes Core Measure Documentation - Palliative Care Palliative Care/ Comfort Measures: Not Applicable - Core Measures Any of the following diagnoses?: stroke - Stroke Discharge Requirements Statin for LDL = or >70 mg/dl on DC: Yes Anticoag for atrial fib/atrial flutter: Not Applicable Antithrombotic for ischemic stroke: Yes Exam - Physical Exam Narrative exam: Patient seen and axamined: - Constitutional Vitals: Temp Pulse Resp BP Pulse Ox 97.9 F 102 H 18 145/72 99 03/22/17 08:00 03/22/17 08:00 03/22/17 08:00 03/22/17 08:00 03/22/17 08:00 General appearance: Present: no acute distress - EENT Eyes: Present: PERRL, EOM intact. Absent: scleral icterus, conjunctival injection - Neck Neck: Present: supple. Absent: enlarged thyroid, masses or JVD - Respiratory Respiratory effort: normal Respiratory: bilateral: CTA, negative: rhonchi, wheezing - Cardiovascular Rhythm: regular Heart Sounds: Present: S1 & S2. Absent: systolic murmur - Extremities Extremities: no ischemia - Abdominal General gastrointestinal: Present: soft, non-tender, non-distended, normal bowel sounds - Integumentary Integumentary: Present: warm, dry. Absent: jaundice, rash - Musculoskeletal Musculoskeletal: right sided weakness - Psychiatric Psychiatric: appropriate mood/affect, cooperative - Neurologic Neurologic: other (facial droop, right-sided hemiparesis) Plan Activity: advance as tolerated, fall precautions Diet: low cholesterol, low salt Additional Instructions: Transferred to acute inpatient rehabilitation unit Follow up with: STEPHANIE HUGHES MD [Staff Physician] - 7 Days PRIMARY CARE, [Primary Care Provider] - 3-5 Days (Follow with your PCP when discharged from acute rehabilitation) Prescriptions: Simvastatin [Zocor TAB] 20 mg PO QHS #30 tablet Aspirin [Aspirin TAB] 325 mg PO QDAY #30 tablet Levothyroxine [Synthroid] 88 mcg PO QAM #30 tablet
--- NOTE | 2017-03-24 07:56 | Vascular Lab Report ---
CAROTID DUPLEX STUDY: RIGHT PSVEDV CCA PROX: 94 6 CCA DIST: 6514 ICA PROX: 6015 ICA MID: 6721 ICA DIST:00549 ECA: 134 8 VERT: 66 14 LEFT PSVEDV CCA PROX: 74 9 CCA DIST: 6213 ICA PROX: 4910 ICA MID: 8320 ICA DIST: 9425 ECA: 119 8 VERT: 45 9 REASON FOR EXAM: Stroke. COMMENTS ON THE RIGHT: Doppler frequency analysis is consistent with 16 to 49 percent diameter reduction of the internal carotid artery. Minimal amount of plaque is seen. The common carotid artery is patent. The external carotid artery is patent. The vertebral artery has antegrade flow. COMMENTS ON THE LEFT: Doppler frequency analysis is consistent with 16 to 49 percent diameter reduction of the internal carotid artery. Minimal amount of plaque is seen. The common carotid artery is patent. The external carotid artery is patent. The vertebral artery has antegrade flow. IMPRESSION: Less than 50% diameter reduction in the internal carotid arteries bilaterally. Consider repeat carotid artery duplex in 12 months.
== END 2017-03-22 20:00 | DRG 65 ==
LOC: ED 17:19 → 4A 19:52
PROVIDERS: ADMIT Internal Medicine; ATTEND Internal Medicine
DX: I63.9 Cerebral infarction, unspecified (principal); G81.91 Hemiplegia, unspecified affecting right dominant side; E11.9 Type 2 diabetes mellitus without complications; I10 Essential (primary) hypertension; E03.9 Hypothyroidism, unspecified; I69.391 Dysphagia following cerebral infarction; Z82.49 Family history of ischemic heart disease and other diseases of the circulatory system; Z83.3 Family history of diabetes mellitus
CPT/HCPCS: 36415; 70450; 70544; 70551; 80048; 80061; 81001; 82962; 83036; 84484; 85025; 85610; 85670; 85730; 93306; 93880; G8978-GP; G8979-GP; G8996-GN; G8997-GN; J7030

== ENCOUNTER 2018-11-30 16:42 | Inpatient (IN) | payer MEDICARE ==
[2018-11-30] MEDS ORDERED: NACL 0.9% 500 ML 500 ML IV ONE (17:43)
[2018-11-30] MEDS ORDERED: TYLENOL ONE (17:52)
[2018-11-30] MEDS ORDERED: NACL 0.9% 1000 ML IV ONE (17:54)
[2018-11-30] MEDS ORDERED: TYLENOL PO ONE (17:56)
--- NOTE | 2018-11-30 17:59 | Emergency Department Report ---
HPI - General Chief Complaint: Fever Time Seen by Provider: 11/30/18 17:35 - HPI HPI: Room 2 The patient is a 68-year-old female presenting with a chief complaint of weakness. Family states 2 nights ago patient had a single episode of vomiting. The following day the patient began complaining of diffuse weakness. Patient states she is probably getting up and problem all of her extremities secondary to the weakness. Patient denies dysuria or hematuria but admits to left flank pain. Patient denies history of chest pain, shortness of breath, diarrhea, bright red blood per rectum or melena. When asked how she is feeling currently the patient reports she feels "okay." Location: [See above] Duration: 2 nights Quality: Weakness Severity: Moderate Modifying factors: [see above] Context: [see above] Mode of transportation: [not driving] ED Past Medical Hx - Past Medical History Hx Hypertension: Yes Hx CVA: Yes (TIA) Hx Diabetes: Yes Additional medical history: Hypothyroidism - Surgical History Additional Surgical History: partial colectomy; hernia repair x2; thyroidectomy - Family History Family history: no significant - Social History Smoking Status: Never Smoker Substance Use Type: None - Medications Home Medications: Home Medications Medication Instructions Recorded Confirmed Last Taken Type Aspirin [Aspirin TAB] 325 mg PO DAILY 11/30/18 11/30/18 Unknown History AtorvaSTATin [Lipitor] 20 mg PO DAILY 11/30/18 11/30/18 Unknown History Escitalopram Oxalate [Lexapro] 20 mg PO QAM 11/30/18 11/30/18 Unknown History Levothyroxine [Synthroid] 75 mcg PO DAILY 11/30/18 11/30/18 Unknown History Lisinopril [Zestril TAB] 20 mg PO BID 11/30/18 11/30/18 Unknown History Memantine HCl [Namenda] 5 mg PO BID 11/30/18 11/30/18 Unknown History Metformin HCl [Glucophage] 500 mg PO BID 11/30/18 11/30/18 Unknown History amLODIPine [Norvasc] 5 mg PO DAILY 11/30/18 11/30/18 Unknown History ED Review of Systems ROS: Stated complaint: WEAKNESS Other details as noted in HPI Constitutional: fever, weakness Eyes: denies: eye pain ENT: denies: throat pain Respiratory: denies: shortness of breath Cardiovascular: denies: chest pain Endocrine: no symptoms reported Gastrointestinal: nausea, vomiting. denies: abdominal pain Genitourinary: denies: dysuria, hematuria Musculoskeletal: other (left flank pain) Neurological: denies: headache Physical Exam - Physical Exam Vital Signs: Vital Signs 11/30/18 11/30/18 17:37 17:41 Temperature 101.0 F H 101.1 F H Pulse Rate 108 H 108 H Respiratory 20 20 Rate Blood Pressure 92/80 Blood Pressure 92/50 [Left] O2 Sat by Pulse 94 94 Oximetry Physical Exam: GENERAL: The patient is well-developed well-nourished female lying on stretcher not appearing to be in acute distress. [] HEENT: Normocephalic. Atraumatic. Extraocular motions are intact. Patient has moist mucous membranes. NECK: Supple. Trachea midline CHEST/LUNGS: Clear to auscultation. There is no respiratory distress noted. HEART/CARDIOVASCULAR: Regular. There is tachycardia. There is no gallop rub or murmur. ABDOMEN: Abdomen is soft, nontender. Patient has normal bowel sounds. There is no abdominal distention. SKIN: There is no rash. There is no edema. There is no diaphoresis. NEURO: The patient is awake, alert, and oriented. The patient is cooperative. The patient has normal speech MUSCULOSKELETAL: There is no evidence of acute injury. ED Course Vital Signs 11/30/18 11/30/18 17:37 17:41 Temperature 101.0 F H 101.1 F H Pulse Rate 108 H 108 H Respiratory 20 20 Rate Blood Pressure 92/80 Blood Pressure 92/50 [Left] O2 Sat by Pulse 94 94 Oximetry - Consultations Consultation #1: 11/30/18 20:37 Interventional radiology paged ED Medical Decision Making - Lab Data Result diagrams: 11/30/18 17:59 11/30/18 17:59 Laboratory Tests 11/30/18 11/30/18 11/30/18 17:59 17:59 17:59 WBC 6.5 RBC 3.31 L Hgb 10.5 Hct 31.5 MCV 95 MCH 32 MCHC 33 RDW 13.8 Plt Count 59 L Add Manual Diff Complete Total Counted 100 Seg Neutrophils % Custodial Maintenance Worker Seg Neuts % (Manual) 92.0 H Band Neutrophils % 3.0 Lymphocytes % (Manual) 2.0 L Reactive Lymphs % (Man) 0 Monocytes % (Manual) 2.0 Eosinophils % (Manual) 0 Basophils % (Manual) 0 Metamyelocytes % 1.0 Myelocytes % 0 Promyelocytes % 0 Blast Cells % 0 Nucleated RBC % Not Reportable Seg Neutrophils # Man 6.0 Band Neutrophils # 0.2 Lymphocytes # (Manual) 0.1 L Abs React Lymphs (Man) 0.0 Monocytes # (Manual) 0.1 Eosinophils # (Manual) 0.0 Basophils # (Manual) 0.0 Metamyelocytes # 0.1 Myelocytes # 0.0 Promyelocytes # 0.0 Blast Cells # 0.0 WBC Morphology Not Reportable Hypersegmented Neuts Not Reportable Hyposegmented Neuts Not Reportable Hypogranular Neuts Not Reportable Smudge Cells Not Reportable Toxic Granulation Not Reportable Toxic Vacuolation Not Reportable Dohle Bodies Not Reportable Pelger-Huet Anomaly Not Reportable Janneth Rods Not Reportable Platelet Estimate Appears decreased Clumped Platelets Not Reportable Plt Clumps, EDTA Not Reportable Large Platelets Not Reportable Giant Platelets Not Reportable Platelet Satelliting Not Reportable Plt Morphology Comment Not Reportable RBC Morphology Not Reportable Dimorphic RBCs Not Reportable Polychromasia Not Reportable Hypochromasia Not Reportable Poikilocytosis Not Reportable Anisocytosis 1+ Microcytosis Not Reportable Macrocytosis Not Reportable Spherocytes Not Reportable Pappenheimer Bodies Not Reportable Sickle Cells Not Reportable Target Cells Not Reportable Tear Drop Cells Few Ovalocytes 1+ Helmet Cells Not Reportable [place] Bodies Not Reportable [place] Rings Not Reportable Karissa Cells Not Reportable Bite Cells Not Reportable Crenated Cell Not Reportable Elliptocytes Not Reportable Acanthocytes (Spur) Not Reportable Rouleaux Not Reportable Hemoglobin C Crystals Not Reportable Schistocytes Not Reportable Malaria parasites Not Reportable Yinka Bodies Not Reportable Hem Pathologist Commnt No PT 15.0 H INR 1.14 H VBG pH Sodium 144 Potassium 3.4 L Chloride 106.0 Carbon Dioxide 25 Anion Gap 16 BUN 43 H Creatinine 1.1 Estimated GFR 49 BUN/Creatinine Ratio 39 Glucose 142 H Lactic Acid Calcium 9.1 Total Bilirubin 0.50 AST 32 ALT 20 Alkaline Phosphatase 91 Total Protein 5.4 L Albumin 3.0 L Albumin/Globulin Ratio 1.3 Urine Color Urine Turbidity Urine pH Ur Specific [place] Urine Protein Urine Glucose (UA) Urine Ketones Urine Blood Urine Nitrite Urine Bilirubin Urine Urobilinogen Ur Leukocyte Esterase Urine WBC (Auto) Urine RBC (Auto) Urine Bacteria (Auto) Urine Mucus 11/30/18 11/30/18 11/30/18 17:59 17:59 18:11 WBC RBC Hgb Hct MCV MCH MCHC RDW Plt Count Add Manual Diff Total Counted Seg Neutrophils % Seg Neuts % (Manual) Band Neutrophils % Lymphocytes % (Manual) Reactive Lymphs % (Man) Monocytes % (Manual) Eosinophils % (Manual) Basophils % (Manual) Metamyelocytes % Myelocytes % Promyelocytes % Blast Cells % Nucleated RBC % Seg Neutrophils # Man Band Neutrophils # Lymphocytes # (Manual) Abs React Lymphs (Man) Monocytes # (Manual) Eosinophils # (Manual) Basophils # (Manual) Metamyelocytes # Myelocytes # Promyelocytes # Blast Cells # WBC Morphology Hypersegmented Neuts Hyposegmented Neuts Hypogranular Neuts Smudge Cells Toxic Granulation Toxic Vacuolation Dohle Bodies Pelger-Huet Anomaly Janneth Rods Platelet Estimate Clumped Platelets Plt Clumps, EDTA Large Platelets Giant Platelets Platelet Satelliting Plt Morphology Comment RBC Morphology Dimorphic RBCs Polychromasia Hypochromasia Poikilocytosis Anisocytosis Microcytosis Macrocytosis Spherocytes Pappenheimer Bodies Sickle Cells Target Cells Tear Drop Cells Ovalocytes Helmet Cells [place] Bodies [place] Rings Karissa Cells Bite Cells Crenated Cell Elliptocytes Acanthocytes (Spur) Rouleaux Hemoglobin C Crystals Schistocytes Malaria parasites Yinka Bodies Hem Pathologist Commnt PT INR VBG pH 7.353 Sodium Potassium Chloride Carbon Dioxide Anion Gap BUN Creatinine Estimated GFR BUN/Creatinine Ratio Glucose Lactic Acid 3.40 H* Calcium Total Bilirubin AST ALT Alkaline Phosphatase Total Protein Albumin Albumin/Globulin Ratio Urine Color Yellow Urine Turbidity Slightly-cloudy Urine pH 5.0 Ur Specific [place] 1.014 Urine Protein 100 mg/dl Urine Glucose (UA) Neg Urine Ketones Neg Urine Blood Lg Urine Nitrite Neg Urine Bilirubin Neg Urine Urobilinogen < 2.0 Ur Leukocyte Esterase Tr Urine WBC (Auto) 7.0 H Urine RBC (Auto) > 182.0 Urine Bacteria (Auto) 1+ Urine Mucus Few 11/30/18 11/30/18 19:30 19:30 WBC RBC Hgb Hct MCV MCH MCHC RDW Plt Count Add Manual Diff Total Counted Seg Neutrophils % Seg Neuts % (Manual) Band Neutrophils % Lymphocytes % (Manual) Reactive Lymphs % (Man) Monocytes % (Manual) Eosinophils % (Manual) Basophils % (Manual) Metamyelocytes % Myelocytes % Promyelocytes % Blast Cells % Nucleated RBC % Seg Neutrophils # Man Band Neutrophils # Lymphocytes # (Manual) Abs React Lymphs (Man) Monocytes # (Manual) Eosinophils # (Manual) Basophils # (Manual) Metamyelocytes # Myelocytes # Promyelocytes # Blast Cells # WBC Morphology Hypersegmented Neuts Hyposegmented Neuts Hypogranular Neuts Smudge Cells Toxic Granulation Toxic Vacuolation Dohle Bodies Pelger-Huet Anomaly Janneth Rods Platelet Estimate Clumped Platelets Plt Clumps, EDTA Large Platelets Giant Platelets Platelet Satelliting Plt Morphology Comment RBC Morphology Dimorphic RBCs Polychromasia Hypochromasia Poikilocytosis Anisocytosis Microcytosis Macrocytosis Spherocytes Pappenheimer Bodies Sickle Cells Target Cells Tear Drop Cells Ovalocytes Helmet Cells [place] Bodies [place] Rings [place] Cells Bite Cells Crenated Cell Elliptocytes Acanthocytes (Spur) Rouleaux Hemoglobin C Crystals Schistocytes Malaria parasites Yinka Bodies Hem Pathologist Commnt PT INR VBG pH Sodium Potassium Chloride Carbon Dioxide Anion Gap BUN Creatinine Estimated GFR BUN/Creatinine Ratio Glucose Lactic Acid 2.00 1.90 Calcium Total Bilirubin AST ALT Alkaline Phosphatase Total Protein Albumin Albumin/Globulin Ratio Urine Color Urine Turbidity Urine pH Ur Specific [place] Urine Protein Urine Glucose (UA) Urine Ketones Urine Blood Urine Nitrite Urine Bilirubin Urine Urobilinogen Ur Leukocyte Esterase Urine WBC (Auto) Urine RBC (Auto) Urine Bacteria (Auto) Urine Mucus - EKG Data -: EKG Interpreted by Me EKG shows normal: sinus rhythm Rate: tachycardia (106 bpm) - EKG Data When compared to previous EKG there are: previous EKG unavailable Interpretation: other (no ischemic changes seen) - Radiology Data Radiology results: report reviewed (chest x-ray, CT abdomen and pelvis), image reviewed (chest x-ray, CT abdomen and pelvis) interpreted by me: Chest x-ray- slightly increased haziness to the right lung periphery but no definite focal infiltrates. No pneumothorax. Right lower lobe pulmonary nodule [facility] [address] [place] [address] XRay Report Signed Patient: LONNIE ALAMO MR#: [id number] : 1950 Acct:[id number] Age/Sex: 68 / F ADM Date: 11/30/18 Loc: ED Attending Dr: Ordering Physician: MARY ANN BARNES MD Date of Service: 11/30/18 Procedure(s): XR chest 1V ap Accession Number(s): [id number] cc: MARY ANN BARNES MD Fluoro Time In Minutes: FINAL REPORT EXAM: XR CHEST 1V AP HISTORY: possible Sepsis TECHNIQUE: u pright single view chest PRIORS: None. FINDINGS: Cardiac and mediastinal contours are unremarkable. No focal pulmonary infiltrate is identified. No pleural fluid collection seen. Pulmonary vasculature is unremarkable. Noted is a calcified granuloma in the right midlung. IMPRESSION: Negative single-view chest Transcribed By: [facility] Dictated By: ADONAY MORRISON MD Electronically Authenticated By: ADONAY MORRISON MD Signed Date/Time: 11/30/181937 DD/ 40 TD/TT: 11/30/181940 [place] [address] Cat Scan Report Signed Patient: LONNIE ALAMO MR#: [id number] : 1950 Acct:[id number] Age/Sex: 68 / F ADM Date: 11/30/18 Loc: ED Attending Dr: Ordering Physician: MARY ANN BARNES MD Date of Service: 11/30/18 Procedure(s): CT abdomen pelvis wo con Accession Number(s): [id number] cc: MARY ANN BARNES MD FINAL REPORT PROCEDURE: CT abdomen and pelvis without contrast. TECHNIQUE: Computerized axial tomography of the abdomen and pelvis was performed without intravenous contrast. This study is performed without intravascular contrast material and its sensitivity for abdominal and pelvic pathology, including neoplasms, inflammation, abscess, free fluid, thrombosis, arterial dissection and infarction, is reduced compared with a contrast enhanced study. HISTORY: Left flank pain, fever. COMPARISON: No prior studies are available for comparison. FINDINGS: There is some subsegmental atelectasis in the dependent portions of both lower lobes. There are no pleural effusions. The heart size is normal. There are some focal masses of low attenuation within the liver. These are fairly sharply defined. They may represent hepatic cysts. The gallbladder is distended. There is no biliary dilatation. The pancreas and spleen are grossly normal. The adrenal glands are not enlarged. Both kidneys appear normal in size. There are approximately 10 small nonobstructing calculi in the right kidney. The largest is in the middle 3rd measuring 3.2 millimeters. There are at least 12 nonobstructing calculi in the left kidney. The largest fills a lower pole calyx, measuring 16.2 millimeters by 9.9 millimeters in cross-section. There is moderate left hydronephrosis and hydroureter. There is a triangular shaped obstructing calculus in the distal left ureter. This measures 7.1 millimeters by 5.8 millimeters in cross-section. This calculus is located approximately 1 centimeter from the ureterovesical junction. There is some infiltration of the fat surrounding the left kidney consistent with acute obstruction. The abdominal aorta has a normal caliber. There is some dense atherosclerotic calcification in the abdominal aorta and both common iliac arteries. There is no definite retroperitoneal adenopathy. The unopacified gastrointestinal tract is unremarkable. The appendix is not identified. The bladder is nearly empty. I believe the uterus has been removed. The regional skeleton appears intact. IMPRESSION: Probable hepatic cysts. 7.1 millimeter obstructing calculus in the distal left ureter. Moderate left hydronephrosis and hydroureter. Numerous bilateral nonobstructing renal calculi. Transcribed By: [facility] Dictated By: MARLENI RUSS MD Electronically Authenticated By: MARLENI RUSS MD Signed Date/Time: 11/30/182024 DD/ 27 TD/TT: 11/30/182027 - Differential Diagnosis pyelonephritis, sepsis, dehydration, pneumonia Critical care attestation.: If time is entered above; I have spent that time in minutes in the direct care of this critically ill patient, excluding procedure time. ED Disposition Clinical Impression: Sepsis, Renal colic on left side, Fever Disposition: OP ADMIT IP TO THIS HOSP Is pt being admited?: Yes Does the pt Need Aspirin: No Condition: Fair Referrals: PRIMARY CARE, [Primary Care Provider] - 3-5 Days Time of Disposition: 21:07 (hospitalist paged (Dr Gonsalez))
[2018-11-30 18:28] LABS: Hematocrit 31.5 % (30.3-42.9); Hemoglobin 10.5 gm/dl (10.1-14.3); Mean Corpuscular HGB Conc 33 % (30-34); Mean Corpuscular Volume 95 fl (79-97); Red Blood Count 3.31 M/mm3 (3.65-5.03); Red Cell Distribution Width 13.8 % (13.2-15.2)
[2018-11-30 18:32] LABS: Bacteria,Urine 1+ /HPF (Negative); Bilirubin,Urine NEG (Negative); Blood,Urine LG (Negative); Color,Urine Yellow (Yellow); Mucus,Urine FEW /HPF; Urobilinogen,Urine < 2.0 mg/dL (<2.0)
[2018-11-30 18:34] LABS: RBC,Urine > 182.0 /HPF (0.0-6.0)
[2018-11-30 18:37] LABS: INR 1.14 (0.87-1.13)
[2018-11-30 18:42] LABS: Calcium 9.1 mg/dL (8.4-10.2)
[2018-11-30 19:18] LABS: Band Neutrophils # (Manual) 0.2 K/mm3; Basophils % (Manual) 0 % (0.0-1.8); Eosinophils % (Manual) 0 % (0.0-4.3); Total Cells Counted 100
[2018-11-30 19:20] LABS: Anisocytosis 1+; Ovalocytes 1+; Platelet Estimate Appears Decreased; Tear Drop Cells Few
[2018-11-30 19:21] LABS: Platelet Count 59 K/mm3 (140-440)
--- NOTE | 2018-11-30 19:38 | XRay Report ---
FINAL REPORT EXAM: XR CHEST 1V AP HISTORY: possible Sepsis TECHNIQUE: upright single view chest PRIORS: None. FINDINGS: Cardiac and mediastinal contours are unremarkable. No focal pulmonary infiltrate is identified. No pleural fluid collection seen. Pulmonary vasculature is unremarkable. Noted is a calcified granuloma in the right midlung. IMPRESSION: Negative single-view chest
[2018-11-30] MEDS ORDERED: NACL 0.9% 1000 ML 1,000 ML IV ONE ×2 (19:53→19:55)
[2018-11-30] MEDS ORDERED: ROCEPHIN/NS 1 GM/50 ML 1 GM/50 ML BAG IV SCH (20:00)
--- NOTE | 2018-11-30 20:25 | Cat Scan Report ---
FINAL REPORT PROCEDURE: CT abdomen and pelvis without contrast. TECHNIQUE: Computerized axial tomography of the abdomen and pelvis was performed without intravenous contrast. This study is performed without intravascular contrast material and its sensitivity for ab dominal and pelvic pathology, including neoplasms, inflammation, abscess, free fluid, thrombosis, art erial dissection and infarction, is reduced compared with a contrast enhanced study. HISTORY: Left flank pain, fever. COMPARISON: No prior studies are available for comparison. FINDINGS: There is some subsegmental atelectasis in the dependent portions of both lower lobes. There are no pl eural effusions. The heart size is normal. There are some focal masses of low attenuation within the liver. These are fairly sharply defined. They may represent hepatic cysts. The gallbladder is distend ed. There is no biliary dilatation. The pancreas and spleen are grossly normal. The adrenal glands ar e not enlarged. Both kidneys appear normal in size. There are approximately 10 small nonobstructing c alculi in the right kidney. The largest is in the middle 3rd measuring 3.2 millimeters. There are at least 12 nonobstructing calculi in the left kidney. The largest fills a lower pole calyx, measuring 1 6.2 millimeters by 9.9 millimeters in cross-section. There is moderate left hydronephrosis and hydrou reter. There is a triangular shaped obstructing calculus in the distal left ureter. This measures 7.1 millimeters by 5.8 millimeters in cross-section. This calculus is located approximately 1 centimeter from the ureterovesical junction. There is some infiltration of the fat surrounding the left kidney consistent with acute obstruction. The abdominal aorta has a normal caliber. There is some dense athe rosclerotic calcification in the abdominal aorta and both common iliac arteries. There is no definite retroperitoneal adenopathy. The unopacified gastrointestinal tract is unremarkable. The appendix is not identified. The bladder is nearly empty. I believe the uterus has been removed. The regional skel eton appears intact. IMPRESSION: Probable hepatic cysts. 7.1 millimeter obstructing calculus in the distal left ureter. Moderate left hydronephrosis and hydroureter. Numerous bilateral nonobstructing renal calculi.
--- NOTE | 2018-11-30 20:47 | Event Note ---
Date: 11/30/18 68 year old female who has not been eating or drinking much with emesis presents with fever, left flank pain and left sided distal ureteral calculi. HR has improved with NS bolus. BP still boarderline hypotensive. Febrile previously. Patient will likely need multiple liters of fluid resuscitation and antibiotics. Recommend fluid resuscitation which is being performed by ED. Recommend board spectrum antibiotics with zosyn and vanc. Recommend NPO after MN. Recommend urology consult tomorrow. Can then plan for either nephrostomy tube or ureteral stent placement tomorrow. If situation changes, can consider earlier placement.
[2018-11-30] MEDS ORDERED: VANCOMYCIN/NS 1 GM/250 ML 1 GM/250 ML BAG IV ONE (20:52)
[2018-11-30] MEDS ORDERED: MAXIPIME/NS 1 GM/100 ML 1 GM/100 ML BAG IV ONE (21:08)
[2018-11-30] MEDS ORDERED: VANCOMYCIN 750 MG in NACL 0.9% 250ML 250 ML IV ONE (21:15)
--- NOTE | 2018-11-30 21:43 | History and Physical Report ---
History of Present Illness Date of examination: 11/30/18 History of present illness: 68-year-old woman with a history of hypertension, diabetes, CVA, hypothyroidism comes emergency room with complaints of generalized weakness since Wednesday. Also had one episodes of nausea and vomiting on Wednesday evening. She complains of left flank pain, sharp, intermittent and 5 minutes, intensity 7/10, no radiation, cannot identifying exacerbating or relieving factors. No hematuria, positive urinary frequency Review of systems Constitutional: no weight loss, chills, fever Ears, eyes, nose, mouth and throat: no nasal congestion, no nasal discharge, no sinus pressure, no vision change, no red eye. Neck: No neck pain or rigidity. Cardiovascular: no palpitations, chest pain Respiratory: no cough, shortness of breath Gastrointestinal: no hematochezia, abdominal pain Genitourinary : no hematuria Musculoskeletal: no joint swelling or muscle ache Integumentary: no rash, no pruritis Neurological: no parathesias, no focal weakness Endocrine: no cold or heat intolerance, no polyuria or polydipsia Hematologic/Lymphatic: no easy bruising, no easy bleeding, no gland swelling Allergic/Immunologic: no urticaria, no angioedema. PAST MEDICAL HISTORY: hypertension, diabetes, CVA, hypothyroidism PAST SURGICAL HISTORY: Partial colectomy, hernia repair 2, thyroidectomy SOCIAL HISTORY: Denies alcohol, drugs, tobacco FAMILY HISTORY: Hypertension Medications and Allergies Allergies Allergy/AdvReac Type Severity Reaction Status Date / Time No Known Allergies Allergy Unverified 03/20/17 18:29 Home Medications Medication Instructions Recorded Confirmed Last Taken Type RX: Aspirin [Aspirin TAB] 325 mg PO DAILY 11/30/18 11/30/18 Unknown History RX: AtorvaSTATin [Lipitor] 20 mg PO DAILY 11/30/18 11/30/18 Unknown History RX: Escitalopram Oxalate [Lexapro] 20 mg PO QAM 11/30/18 11/30/18 Unknown History RX: Levothyroxine [Synthroid] 75 mcg PO DAILY 11/30/18 11/30/18 Unknown History RX: Lisinopril [Zestril TAB] 20 mg PO BID 11/30/18 11/30/18 Unknown History RX: Memantine HCl [Namenda] 5 mg PO BID 11/30/18 11/30/18 Unknown History RX: Metformin HCl [Glucophage] 500 mg PO BID 11/30/18 11/30/18 Unknown History RX: amLODIPine [Norvasc] 5 mg PO DAILY 11/30/18 11/30/18 Unknown History RX: Docusate Sodium [Colace CAP] 100 mg PO BID capsule 12/13/18 Unknown Rx RX: Insulin NPH/Regular [NovoLIN 4 unit SUB-Q BIDDIAB units 12/13/18 Unknown Rx 70/30] RX: Insulin Regular, Human 0 units SUB-Q ACHS units 12/13/18 Unknown Rx [HumuLIN R] Active Meds: Active Medications Ceftriaxone Sodium (Rocephin/Ns 1 Gm/50 Ml) 1 gm in 50 mls @ 100 mls/hr IV Q24HR KEVON; Protocol Stop: 12/02/18 10:29 Vancomycin HCl 750 mg/ Sodium (Chloride) 265 mls @ 166.667 mls/hr IV ONCE ONE Stop: 11/30/18 22:50 Exam - Physical Exam Narrative exam: General Apperance: The patient lying in bed, breathing comfortable HEENT: Normocephalic, atraumatic. Pupils equally round and reactive to light, EOMI, no sclericterus or JVD or thyromegaly or nodule. , no carotid bruit, mucous membranes moist, no exudate or erythema Heart: S1-S2, regular is rhythm Lungs: Clear to auscultation bilaterally, breathing comfortable Abdomen: Positive bowel sounds, soft, nontender, nondistended, no organomegaly Extremities: No edema cyanosis clubbing, left CVA tenderness Skin: no rash, nodule, warm and dry Neuro: cranial nerves 2-12 intact, speech is fluent, motor/sensory intact - Constitutional Vitals: Temp Pulse Resp BP Pulse Ox 99.1 F 88 17 91/49 100 11/30/18 18:37 11/30/18 20:00 11/30/18 20:00 11/30/18 20:00 11/30/18 20:00 Results - Labs CBC & Chem 7: 12/06/18 05:04 12/10/18 05:30 Labs: Abnormal lab results 11/30/18 11/30/18 11/30/18 Range/Units 17:59 17:59 17:59 RBC 3.31 L (3.65-5.03) M/mm3 Plt Count 59 L (140-440) K/mm3 Seg Neuts % (Manual) 92.0 H (40.0-70.0) % Lymphocytes % (Manual) 2.0 L (13.4-35.0) % Lymphocytes # (Manual) 0.1 L (1.2-5.4) K/mm3 PT 15.0 H (12.2-14.9) Sec. INR 1.14 H (0.87-1.13) Potassium 3.4 L (3.6-5.0) mmol/L BUN 43 H (7-17) mg/dL Glucose 142 H (65-100) mg/dL Lactic Acid (0.7-2.0) mmol/L Total Protein 5.4 L (6.3-8.2) g/dL Albumin 3.0 L (3.9-5) g/dL Urine WBC (Auto) (0.0-6.0) /HPF 11/30/18 11/30/18 Range/Units 17:59 18:11 RBC (3.65-5.03) M/mm3 Plt Count (140-440) K/mm3 Seg Neuts % (Manual) (40.0-70.0) % Lymphocytes % (Manual) (13.4-35.0) % Lymphocytes # (Manual) (1.2-5.4) K/mm3 PT (12.2-14.9) Sec. INR (0.87-1.13) Potassium (3.6-5.0) mmol/L BUN (7-17) mg/dL Glucose (65-100) mg/dL Lactic Acid 3.40 H* (0.7-2.0) mmol/L Total Protein (6.3-8.2) g/dL Albumin (3.9-5) g/dL Urine WBC (Auto) 7.0 H (0.0-6.0) /HPF - Imaging and Cardiology CT scan - abdomen: report reviewed CT scan - pelvis: report reviewed Assessment and Plan Assessment left hydronephrosis, hydroureter left sided distal ureteral calculi. Urinary tract infection Relative hypotension Diabetes History of CVA Plan Admit to medicine Start IV antibiotics, follow cultures Interventional radiologist has been consulted to see the patient Check fingersticks, DVT prophylaxis
[2018-11-30] MEDS ORDERED: PERCOCET 5/325 PO PRN (22:33)
[2018-11-30] MEDS ORDERED: SODIUM CHLORIDE FLUSH SYRINGE 10 ML IV PRN (22:33)
[2018-11-30] MEDS ORDERED: TYLENOL PO PRN (22:33)
[2018-11-30] MEDS ORDERED: ZOFRAN IV PRN (22:33)
[2018-12-01] MEDS ORDERED: OMNIPAQUE (300 MG) IR ONE
[2018-12-01] MEDS ORDERED: WATER FOR IRRIG STERILE IR ONE
[2018-12-01] MEDS ORDERED: D50W (25GM) Syringe IV PRN (02:54)
[2018-12-01] MEDS ORDERED: ZOSYN/NS 2.25 GM/50ML 2.25 GM/50 ML BAG IV SCH (06:00)
[2018-12-01] MEDS ORDERED: ZOSYN/NS 3.375GM/50ML 3.375 GM/50 ML BAG IV SCH (06:00)
[2018-12-01 06:30] LABS: Hematocrit 30.5 % (30.3-42.9); Hemoglobin 10.3 gm/dl (10.1-14.3); Mean Corpuscular HGB Conc 34 % (30-34); Mean Corpuscular Volume 96 fl (79-97); Red Blood Count 3.18 M/mm3 (3.65-5.03); Red Cell Distribution Width 14.7 % (13.2-15.2)
[2018-12-01 06:32] LABS: Platelet Count 54 K/mm3 (140-440)
[2018-12-01 07:24] LABS: Band Neutrophils # (Manual) 4.7 K/mm3; Basophils % (Manual) 0 % (0.0-1.8); Eosinophils % (Manual) 0 % (0.0-4.3); Total Cells Counted 100
[2018-12-01 07:25] LABS: Anisocytosis 1+; Burr Cells Few; Ovalocytes 1+; Platelet Estimate Consistent w Auto; Poikilocytosis 1+
[2018-12-01] MEDS: ZOSYN/NS 2.25 GM/50ML 2.25 GM/50 ML BAG IV SCH ×3 (08:03→22:05)
--- NOTE | 2018-12-01 09:37 | Consultation ---
History of Present Illness - Reason for Consult Consult date: 12/01/18 Left flank pain with fever - History of Present Illness 68-year-old woman with a history of hypertension, diabetes, CVA, hypothyroidism comes emergency room with complaints of generalized weakness since Wednesday. Had one episodes of nausea and vomiting yesterday. Has had poor PO intake. She complains of left flank pain, sharp, intermittent and 5 minutes, intensity 7/10, no radiation, Ganesh identifying exacerbating or relieving factors. No hematuria, positive urinary frequency. CT scan demonstrates obstructing left ureteral calculi with left-sided hydronephrosis. Patient endorses left-sided flank pain and has left-sided costovertebral tenderness. Review of systems Constitutional: no weight loss, chills, fever Ears, eyes, nose, mouth and throat: no nasal congestion, no nasal discharge, no sinus pressure, no vision change, no red eye. Neck: No neck pain or rigidity. Cardiovascular: no palpitations, chest pain Respiratory: no cough, shortness of breath Gastrointestinal: no hematochezia, abdominal pain Genitourinary : no hematuria Musculoskeletal: no joint swelling or muscle ache Integumentary: no rash, no pruritis Neurological: no parathesias, no focal weakness Endocrine: no cold or heat intolerance, no polyuria or polydipsia Hematologic/Lymphatic: no easy bruising, no easy bleeding, no gland swelling Allergic/Immunologic: no urticaria, no angioedema. PAST MEDICAL HISTORY: hypertension, diabetes, CVA, hypothyroidism PAST SURGICAL HISTORY: Partial colectomy, hernia repair 2, thyroidectomy SOCIAL HISTORY: Denies alcohol, drugs, tobacco FAMILY HISTORY: Hypertension Medications and Allergies Allergies Allergy/AdvReac Type Severity Reaction Status Date / Time No Known Allergies Allergy Unverified 03/20/17 18:29 Home Medications Medication Instructions Recorded Confirmed Last Taken Type Aspirin [Aspirin TAB] 325 mg PO DAILY 11/30/18 11/30/18 Unknown History AtorvaSTATin [Lipitor] 20 mg PO DAILY 11/30/18 11/30/18 Unknown History Escitalopram Oxalate [Lexapro] 20 mg PO QAM 11/30/18 11/30/18 Unknown History Levothyroxine [Synthroid] 75 mcg PO DAILY 11/30/18 11/30/18 Unknown History Lisinopril [Zestril TAB] 20 mg PO BID 11/30/18 11/30/18 Unknown History Memantine HCl [Namenda] 5 mg PO BID 11/30/18 11/30/18 Unknown History Metformin HCl [Glucophage] 500 mg PO BID 11/30/18 11/30/18 Unknown History amLODIPine [Norvasc] 5 mg PO DAILY 11/30/18 11/30/18 Unknown History Active Meds: Active Medications Acetaminophen (Tylenol) 650 mg PO Q4H PRN PRN Reason: Pain MILD(1-3)/Fever >100.5/SOLIS Dextrose (D50w (25gm) Syringe) 50 ml IV PRN PRN PRN Reason: Hypoglycemia Enoxaparin Sodium (Lovenox) 30 mg SUB-Q QDAY KEVON Sodium Chloride (Nacl 0.9% 1000 Ml) 1,000 mls @ 100 mls/hr IV DIRECT KEVON Piperacillin Sod/Tazobactam Sod (Zosyn/Ns 2.25 Gm/50ml) 2.25 gm in 50 mls @ 100 mls/hr IV Q8HR KEVON; Protocol Last Admin: 12/01/18 08:03 Dose: 100 mls/hr Documented by: Ondansetron HCl (Zofran) 4 mg IV Q8H PRN PRN Reason: Nausea And Vomiting Oxycodone/Acetaminophen (Percocet 5/325) 1 tab PO Q6H PRN PRN Reason: Pain, Moderate (4-6) Sodium Chloride (Sodium Chloride Flush Syringe 10 Ml) 10 ml IV BID KEVON Sodium Chloride (Sodium Chloride Flush Syringe 10 Ml) 10 ml IV PRN PRN PRN Reason: LINE FLUSH Review of Systems All systems: negative (see HPI) Exam - Constitutional Vitals: Temp Pulse Resp BP Pulse Ox 99.1 F 95 H 25 H 106/52 96 11/30/18 18:37 12/01/18 08:15 12/01/18 08:15 12/01/18 08:15 12/01/18 08:15 General appearance: Present: mild distress (left flank pain) - EENT Eyes: Present: EOM intact ENT: hearing intact - Respiratory Respiratory effort: normal - Extremities Extremities: normal temperature, normal color - Abdominal General gastrointestinal: Present: other (left CVT) - Psychiatric Psychiatric: appropriate mood/affect, cooperative Results - Labs CBC & Chem 7: 12/01/18 06:01 12/01/18 06:01 Labs: Abnormal lab results 11/30/18 11/30/18 11/30/18 Range/Units 17:59 17:59 17:59 RBC 3.31 L (3.65-5.03) M/mm3 Plt Count 59 L (140-440) K/mm3 Seg Neuts % (Manual) 92.0 H (40.0-70.0) % Lymphocytes % (Manual) 2.0 L (13.4-35.0) % Lymphocytes # (Manual) 0.1 L (1.2-5.4) K/mm3 PT 15.0 H (12.2-14.9) Sec. INR 1.14 H (0.87-1.13) Sodium (137-145) mmol/L Potassium 3.4 L (3.6-5.0) mmol/L Chloride (98-107) mmol/L Carbon Dioxide (22-30) mmol/L BUN 43 H (7-17) mg/dL Glucose 142 H (65-100) mg/dL Lactic Acid (0.7-2.0) mmol/L Calcium (8.4-10.2) mg/dL Total Protein 5.4 L (6.3-8.2) g/dL Albumin 3.0 L (3.9-5) g/dL Urine WBC (Auto) (0.0-6.0) /HPF 11/30/18 11/30/18 12/01/18 Range/Units 17:59 18:11 06:01 RBC 3.18 L (3.65-5.03) M/mm3 Plt Count 54 L (140-440) K/mm3 Seg Neuts % (Manual) 36.0 L (40.0-70.0) % Lymphocytes % (Manual) 6.0 L (13.4-35.0) % Lymphocytes # (Manual) 0.5 L (1.2-5.4) K/mm3 PT (12.2-14.9) Sec. INR (0.87-1.13) Sodium (137-145) mmol/L Potassium (3.6-5.0) mmol/L Chloride (98-107) mmol/L Carbon Dioxide (22-30) mmol/L BUN (7-17) mg/dL Glucose (65-100) mg/dL Lactic Acid 3.40 H* (0.7-2.0) mmol/L Calcium (8.4-10.2) mg/dL Total Protein (6.3-8.2) g/dL Albumin (3.9-5) g/dL Urine WBC (Auto) 7.0 H (0.0-6.0) /HPF 12/01/18 Range/Units 06:01 RBC (3.65-5.03) M/mm3 Plt Count (140-440) K/mm3 Seg Neuts % (Manual) (40.0-70.0) % Lymphocytes % (Manual) (13.4-35.0) % Lymphocytes # (Manual) (1.2-5.4) K/mm3 PT (12.2-14.9) Sec. INR (0.87-1.13) Sodium 148 H (137-145) mmol/L Potassium (3.6-5.0) mmol/L Chloride 114.4 H (98-107) mmol/L Carbon Dioxide 17 L D (22-30) mmol/L BUN 43 H (7-17) mg/dL Glucose 101 H (65-100) mg/dL Lactic Acid (0.7-2.0) mmol/L Calcium 8.0 L (8.4-10.2) mg/dL Total Protein (6.3-8.2) g/dL Albumin (3.9-5) g/dL Urine WBC (Auto) (0.0-6.0) /HPF - Imaging and Cardiology CT scan - abdomen: report reviewed, image reviewed CT scan - pelvis: report reviewed, image reviewed Assessment and Plan 68-year-old female with left-sided flank pain who initially presented with tachycardia and hypotension and had a CT with left-sided obstructing ureteral calculi with left-sided hydronephrosis. Patient responded to IV fluids and antibiotics with resolution of tachycardia and hypotension. Plan for left-sided ureteral stent versus nephrostomy tube. Discussed with Dr. Vinay Ramos will attempt left-sided ureteral stent. If unsuccessful, then left- sided nephrostomy tube may need to be performed. Risks, benefits, and alternatives discussed.
--- NOTE | 2018-12-01 10:02 | Progress Note ---
Assessment and Plan L CVAT dictated for stent poss perc Subjective Date of service: 12/01/18 Principal diagnosis: sepsis Objective - Constitutional Vitals: Vital Signs - 12hr 11/30/18 11/30/18 11/30/18 22:15 22:30 22:45 Pulse Rate 81 86 82 Respiratory 19 19 20 Rate Blood Pressure 106/54 103/53 96/55 O2 Sat by Pulse 98 100 99 Oximetry 11/30/18 11/30/18 11/30/18 23:00 23:15 23:30 Pulse Rate 85 83 82 Respiratory 19 19 14 Rate Blood Pressure 105/57 103/57 96/50 O2 Sat by Pulse 100 100 100 Oximetry 11/30/18 12/01/18 12/01/18 23:45 00:00 00:15 Pulse Rate 87 87 82 Respiratory 16 17 13 Rate Blood Pressure 98/56 101/58 102/54 O2 Sat by Pulse 100 99 99 Oximetry 12/01/18 12/01/18 12/01/18 00:30 00:45 01:00 Pulse Rate 83 77 81 Respiratory 16 16 14 Rate Blood Pressure 109/58 106/56 104/58 O2 Sat by Pulse 100 100 99 Oximetry 12/01/18 12/01/18 12/01/18 01:15 01:30 01:45 Pulse Rate 85 78 85 Respiratory 19 15 20 Rate Blood Pressure 111/63 106/56 112/64 O2 Sat by Pulse 98 100 97 Oximetry 12/01/18 12/01/18 12/01/18 02:00 02:15 02:30 Pulse Rate 82 80 76 Respiratory 21 16 18 Rate Blood Pressure 116/66 110/62 111/58 O2 Sat by Pulse 98 98 97 Oximetry 12/01/18 12/01/18 12/01/18 02:45 03:00 03:15 Pulse Rate 76 77 85 Respiratory 17 16 20 Rate Blood Pressure 110/59 107/57 114/62 O2 Sat by Pulse 98 99 98 Oximetry 12/01/18 12/01/18 12/01/18 03:30 03:45 04:00 Pulse Rate 81 76 77 Respiratory 14 14 13 Rate Blood Pressure 99/56 106/54 110/56 O2 Sat by Pulse 99 98 97 Oximetry 12/01/18 12/01/18 12/01/18 04:15 04:30 04:45 Pulse Rate 81 87 88 Respiratory 15 19 20 Rate Blood Pressure 111/57 113/59 116/61 O2 Sat by Pulse 98 98 98 Oximetry 12/01/18 12/01/18 12/01/18 05:00 05:15 05:30 Pulse Rate 84 87 85 Respiratory 21 21 19 Rate Blood Pressure 115/58 119/61 120/57 O2 Sat by Pulse 97 98 91 Oximetry 12/01/18 12/01/18 12/01/18 05:45 06:00 06:15 Pulse Rate 87 90 88 Respiratory 20 16 23 Rate Blood Pressure 120/56 118/66 112/60 O2 Sat by Pulse 95 90 94 Oximetry 12/01/18 12/01/18 12/01/18 06:30 06:45 07:30 Pulse Rate 92 H 97 H 99 H Respiratory 22 24 23 Rate Blood Pressure 120/65 120/62 112/54 O2 Sat by Pulse 97 97 98 Oximetry 12/01/18 12/01/18 12/01/18 07:45 08:00 08:05 Pulse Rate 97 H 107 H Respiratory 23 16 Rate Blood Pressure 101/53 99/54 O2 Sat by Pulse 98 96 100 Oximetry 12/01/18 08:15 Pulse Rate 95 H Respiratory 25 H Rate Blood Pressure 106/52 O2 Sat by Pulse 96 Oximetry General appearance: Present: mild distress - Neck Neck: supple - Respiratory Respiratory effort: normal Extremities: no ischemia - Gastrointestinal General gastrointestinal: Present: soft, tender - Labs CBC & Chem 7: 12/01/18 06:01 12/01/18 06:01 Labs: Abnormal lab results 11/30/18 11/30/18 11/30/18 Range/Units 17:59 17:59 17:59 RBC 3.31 L (3.65-5.03) M/mm3 Plt Count 59 L (140-440) K/mm3 Seg Neuts % (Manual) 92.0 H (40.0-70.0) % Lymphocytes % (Manual) 2.0 L (13.4-35.0) % Lymphocytes # (Manual) 0.1 L (1.2-5.4) K/mm3 PT 15.0 H (12.2-14.9) Sec. INR 1.14 H (0.87-1.13) Sodium (137-145) mmol/L Potassium 3.4 L (3.6-5.0) mmol/L Chloride (98-107) mmol/L Carbon Dioxide (22-30) mmol/L BUN 43 H (7-17) mg/dL Glucose 142 H (65-100) mg/dL Lactic Acid (0.7-2.0) mmol/L Calcium (8.4-10.2) mg/dL Total Protein 5.4 L (6.3-8.2) g/dL Albumin 3.0 L (3.9-5) g/dL Urine WBC (Auto) (0.0-6.0) /HPF 11/30/18 11/30/18 12/01/18 Range/Units 17:59 18:11 06:01 RBC 3.18 L (3.65-5.03) M/mm3 Plt Count 54 L (140-440) K/mm3 Seg Neuts % (Manual) 36.0 L (40.0-70.0) % Lymphocytes % (Manual) 6.0 L (13.4-35.0) % Lymphocytes # (Manual) 0.5 L (1.2-5.4) K/mm3 PT (12.2-14.9) Sec. INR (0.87-1.13) Sodium (137-145) mmol/L Potassium (3.6-5.0) mmol/L Chloride (98-107) mmol/L Carbon Dioxide (22-30) mmol/L BUN (7-17) mg/dL Glucose (65-100) mg/dL Lactic Acid 3.40 H* (0.7-2.0) mmol/L Calcium (8.4-10.2) mg/dL Total Protein (6.3-8.2) g/dL Albumin (3.9-5) g/dL Urine WBC (Auto) 7.0 H (0.0-6.0) /HPF 12/01/18 Range/Units 06:01 RBC (3.65-5.03) M/mm3 Plt Count (140-440) K/mm3 Seg Neuts % (Manual) (40.0-70.0) % Lymphocytes % (Manual) (13.4-35.0) % Lymphocytes # (Manual) (1.2-5.4) K/mm3 PT (12.2-14.9) Sec. INR (0.87-1.13) Sodium 148 H (137-145) mmol/L Potassium (3.6-5.0) mmol/L Chloride 114.4 H (98-107) mmol/L Carbon Dioxide 17 L D (22-30) mmol/L BUN 43 H (7-17) mg/dL Glucose 101 H (65-100) mg/dL Lactic Acid (0.7-2.0) mmol/L Calcium 8.0 L (8.4-10.2) mg/dL Total Protein (6.3-8.2) g/dL Albumin (3.9-5) g/dL Urine WBC (Auto) (0.0-6.0) /HPF Medications & Allergies - Medications Allergies/Adverse Reactions: Allergies No Known Allergies Allergy (Unverified 03/20/17 18:29) Home Medications: Home Medications Medication Instructions Recorded Confirmed Last Taken Type Aspirin [Aspirin TAB] 325 mg PO DAILY 11/30/18 11/30/18 Unknown History AtorvaSTATin [Lipitor] 20 mg PO DAILY 11/30/18 11/30/18 Unknown History Escitalopram Oxalate [Lexapro] 20 mg PO QAM 11/30/18 11/30/18 Unknown History Levothyroxine [Synthroid] 75 mcg PO DAILY 11/30/18 11/30/18 Unknown History Lisinopril [Zestril TAB] 20 mg PO BID 11/30/18 11/30/18 Unknown History Memantine HCl [Namenda] 5 mg PO BID 11/30/18 11/30/18 Unknown History Metformin HCl [Glucophage] 500 mg PO BID 11/30/18 11/30/18 Unknown History amLODIPine [Norvasc] 5 mg PO DAILY 11/30/18 11/30/18 Unknown History Active Medications: Generic Name Dose Route Start Last Admin Trade Name Freq PRN Reason Stop Dose Admin Acetaminophen 650 mg 11/30/18 22:33 Tylenol PO Q4H PRN Pain MILD(1-3)/Fever >100.5/SOLIS Dextrose 50 ml 12/01/18 02:54 D50w (25gm) Syringe IV PRN PRN Hypoglycemia Enoxaparin Sodium 30 mg 12/01/18 10:00 Lovenox SUB-Q QDAY KEVON Sodium Chloride 1,000 mls @ 100 mls/hr 11/30/18 22:00 Nacl 0.9% 1000 Ml IV DIRECT KEVON Piperacillin Sod/Tazobactam Sod 2.25 gm in 50 mls @ 100 mls/hr 12/01/18 06:00 12/01/18 08:03 Zosyn/Ns 2.25 Gm/50ml IV 100 mls/hr Q8HR KEVON Administration Protocol Ondansetron HCl 4 mg 11/30/18 22:33 Zofran IV Q8H PRN Nausea And Vomiting Oxycodone/Acetaminophen 1 tab 11/30/18 22:33 Percocet 5/325 PO Q6H PRN Pain, Moderate (4-6) Sodium Chloride 10 ml 12/01/18 10:00 Sodium Chloride Flush Syringe 10 Ml IV BID KEVON Sodium Chloride 10 ml 11/30/18 22:33 Sodium Chloride Flush Syringe 10 Ml IV PRN PRN LINE FLUSH
--- NOTE | 2018-12-01 10:44 | Anesthesia Day of Surgery ---
Anesthesia Day of Surgery - Day of Surgery Patient Examined: Yes Patient H&P Reviewed: Yes Patient is NPO: Yes
[2018-12-01] MEDS ORDERED: DILAUDID IV PRN (10:45)
[2018-12-01] MEDS ORDERED: ZOFRAN IV PRN (10:45)
[2018-12-01] MEDS ORDERED: PHENERGAN PR PRN (10:45)
--- NOTE | 2018-12-01 10:45 | Anesthesia Consultation ---
Anesthesia Consult and Med Hx Date of service: 12/01/18 - Airway Anesthetic Teeth Evaluation: Poor, Chipped ROM Head & Neck: Adequate Mental/Hyoid Distance: Adequate Mallampati Class: Class II Intubation Access Assessment: Probably Good - Pulmonary Exam CTA: Yes - Cardiac Exam Cardiac Exam: RRR - Pre-Operative Health Status ASA Pre-Surgery Classification: ASA3 Proposed Anesthetic Plan: General (GA with LMA, HTN, did not take meds, low BP in ED) - Cardiovascular System Hx Hypertension: Yes - Central Nervous System CVA: Yes Hx Psychiatric Problems: No - Endocrine Hx Hypothyroidism: Yes - Other Systems Hx Cancer: No
[2018-12-01] MEDS ORDERED: SUBLIMAZE ONE ×2 (10:53)
[2018-12-01] MEDS ORDERED: ALBURX 25% (ALBUMIN) IV ONE (11:39)
--- NOTE | 2018-12-01 12:00 | Post Operative Note ---
Date of procedure: 12/01/18 Pre-op diagnosis: sepsis ureteral and renal stone Post-op diagnosis: same Findings: as above Procedure: cuysto rpg stent Anesthesia: GETA Surgeon: MAXIME MARCANO Estimated blood loss: none Pathology: none Condition: stable Disposition: PACU
[2018-12-01] MEDS ORDERED: LACTATED RINGERS 1,000 ML ONE (12:17)
[2018-12-01] MEDS ORDERED: D50W (25GM) Syringe IV ONE ×2 (12:32→12:38)
--- NOTE | 2018-12-01 12:57 | Post Anesthesia Evaluation ---
- Post Anesthesia Evaluation Patient Participated: Yes Airway Patent: Yes Stable Respiratory Function: Yes Nausea/Vomiting: No Temp > 96.8F: Yes Pain Manageable: Yes Adequeate Hydration: Yes Anesthesia Complications: No
--- NOTE | 2018-12-01 13:09 | Operative Report ---
PREOPERATIVE DIAGNOSES: Urosepsis, left ureteral stone, multiple left renal stones and right renal stones. POSTOPERATIVE DIAGNOSES: Urosepsis, left ureteral stone, multiple left renal stones and right renal stones. PROCEDURE: Cystoscopy, minimal retrograde with straightening of the kink ureter and a double-J stent. SURGEON: Beni Miles MD ANESTHESIA: General. FINDINGS: This is a woman with sepsis, pain, and evidence of increasing instability. She now presents for stenting. DESCRIPTION OF PROCEDURE: The patient was brought to the operating room and placed on the operating table. Following induction of anesthesia, placed in lithotomy position, prepped and draped in usual sterile fashion. Retrograde showed a stone in the distal ureter about 6-7 mm and stones in the left kidney and right kidney. The ureter on the left was very kinked, so we were able to follow up with the wire and straighten it out with the open-ended catheter. Once it was straightened out, a 22 cm 6-Emirati double J coiled in the kidney and we placed a Parisi. There was moderate amount of debris from the left kidney and we did not try to extract the stone to do ureteroscopy, brought to recovery in stable condition. JOB# [id number] UMER/FUNMILAYO
--- NOTE | 2018-12-01 13:32 | Progress Note ---
Assessment and Plan Assessment and plan: Sepsis/septic shock. Patient meets criteria given the fever, tachycardia and diagnosis of UTI/infected ureteral calculus. Continue IV antibiotics and follow-up blood and urine cultures. Patient responded to IV fluid hydration. Initiate pressors as needed. Left hydronephrosis, hydroureter secondary to left distal ureteral calculi. Urology consult. Patient is status post cystoscopy/RPG/stent Complicated Urinary tract infection. As above. Sepsis associated hypotension. As above. Diabetes mellitus type II. Continue Accu-Cheks and sliding scale. History of CVA. Supportive care. History Interval history: 68-year-old woman with a history of hypertension, diabetes, CVA, hypothyroidism comes emergency room with complaints of generalized weakness since Wednesday. Also had one episodes of nausea and vomiting on Wednesday evening. She complains of le ft flank pain, sharp, intermittent and 5 minutes, intensity 7/10, no radiation Hospitalist Physical - Constitutional Vitals: Temp Pulse Resp BP Pulse Ox 98.4 F 105 H 17 111/56 97 12/01/18 13:00 12/01/18 13:15 12/01/18 13:15 12/01/18 13:15 12/01/18 13:15 General appearance: Present: no acute distress - EENT Eyes: Present: PERRL, EOM intact ENT: hearing intact, clear oral mucosa, dentition normal - Neck Neck: Present: supple, normal ROM - Respiratory Respiratory effort: normal Respiratory: bilateral: CTA - Cardiovascular Rhythm: regular Heart Sounds: Present: S1 & S2. Absent: gallop, rub - Extremities Extremities: no ischemia, No edema, Full ROM - Abdominal General gastrointestinal: soft, non-tender, non-distended, normal bowel sounds - Integumentary Integumentary: Present: clear, warm, dry - Neurologic Neurologic: CNII-XII intact, moves all extremities Results - Labs CBC & Chem 7: 12/01/18 06:01 12/01/18 06:01 Labs: Laboratory Last Values WBC 8.7 K/mm3 (4.5-11.0) 12/01/18 06:01 RBC 3.18 M/mm3 (3.65-5.03) L 12/01/18 06:01 Hgb 10.3 gm/dl (10.1-14.3) 12/01/18 06:01 Hct 30.5 % (30.3-42.9) 12/01/18 06:01 MCV 96 fl (79-97) 12/01/18 06:01 MCH 32 pg (28-32) 12/01/18 06:01 MCHC 34 % (30-34) 12/01/18 06:01 RDW 14.7 % (13.2-15.2) 12/01/18 06:01 Plt Count 54 K/mm3 (140-440) L 12/01/18 06:01 Add Manual Diff Complete 12/01/18 06:01 Total Counted 100 12/01/18 06:01 Seg Neutrophils % Watch Electrician 11/30/18 17:59 Seg Neuts % (Manual) 36.0 % (40.0-70.0) L 12/01/18 06:01 Band Neutrophils % 54.0 % 12/01/18 06:01 Lymphocytes % (Manual) 6.0 % (13.4-35.0) L 12/01/18 06:01 Reactive Lymphs % (Man) 0 % 12/01/18 06:01 Monocytes % (Manual) 2.0 % (0.0-7.3) 12/01/18 06:01 Eosinophils % (Manual) 0 % (0.0-4.3) 12/01/18 06:01 Basophils % (Manual) 0 % (0.0-1.8) 12/01/18 06:01 Metamyelocytes % 2.0 % 12/01/18 06:01 Myelocytes % 0 % 12/01/18 06:01 Promyelocytes % 0 % 12/01/18 06:01 Blast Cells % 0 % 12/01/18 06:01 Nucleated RBC % Not Reportable 12/01/18 06:01 Seg Neutrophils # Man 3.1 K/mm3 (1.8-7.7) 12/01/18 06:01 Band Neutrophils # 4.7 K/mm3 12/01/18 06:01 Lymphocytes # (Manual) 0.5 K/mm3 (1.2-5.4) L 12/01/18 06:01 Abs React Lymphs (Man) 0.0 K/mm3 12/01/18 06:01 Monocytes # (Manual) 0.2 K/mm3 (0.0-0.8) 12/01/18 06:01 Eosinophils # (Manual) 0.0 K/mm3 (0.0-0.4) 12/01/18 06:01 Basophils # (Manual) 0.0 K/mm3 (0.0-0.1) 12/01/18 06:01 Metamyelocytes # 0.2 K/mm3 12/01/18 06:01 Myelocytes # 0.0 K/mm3 12/01/18 06:01 Promyelocytes # 0.0 K/mm3 12/01/18 06:01 Blast Cells # 0.0 K/mm3 12/01/18 06:01 WBC Morphology Not Reportable 12/01/18 06:01 Hypersegmented Neuts Not Reportable 12/01/18 06:01 Hyposegmented Neuts Not Reportable 12/01/18 06:01 Hypogranular Neuts Not Reportable 12/01/18 06:01 Smudge Cells Not Reportable 12/01/18 06:01 Toxic Granulation Not Reportable 12/01/18 06:01 Toxic Vacuolation Not Reportable 12/01/18 06:01 Dohle Bodies Not Reportable 12/01/18 06:01 Pelger-Huet Anomaly Not Reportable 12/01/18 06:01 Janneth Rods Not Reportable 12/01/18 06:01 Platelet Estimate Consistent w auto 12/01/18 06:01 Clumped Platelets Not Reportable 12/01/18 06:01 Plt Clumps, EDTA Not Reportable 12/01/18 06:01 Large Platelets Not Reportable 12/01/18 06:01 Giant Platelets Not Reportable 12/01/18 06:01 Platelet Satelliting Not Reportable 12/01/18 06:01 Plt Morphology Comment Not Reportable 12/01/18 06:01 RBC Morphology Not Reportable 12/01/18 06:01 Dimorphic RBCs Not Reportable 12/01/18 06:01 Polychromasia Not Reportable 12/01/18 06:01 Hypochromasia Not Reportable 12/01/18 06:01 Poikilocytosis 1+ 12/01/18 06:01 Anisocytosis 1+ 12/01/18 06:01 Microcytosis Not Reportable 12/01/18 06:01 Macrocytosis Not Reportable 12/01/18 06:01 Spherocytes Not Reportable 12/01/18 06:01 Pappenheimer Bodies Not Reportable 12/01/18 06:01 Sickle Cells Not Reportable 12/01/18 06:01 Target Cells Not Reportable 12/01/18 06:01 Tear Drop Cells Not Reportable 12/01/18 06:01 Ovalocytes 1+ 12/01/18 06:01 Helmet Cells Not Reportable 12/01/18 06:01 [place] Bodies Not Reportable 12/01/18 06:01 [place] Rings Not Reportable 12/01/18 06:01 [place] Cells Few 12/01/18 06:01 Bite Cells Not Reportable 12/01/18 06:01 Crenated Cell Not Reportable 12/01/18 06:01 Elliptocytes Few 12/01/18 06:01 Acanthocytes (Spur) Not Reportable 12/01/18 06:01 Rouleaux Not Reportable 12/01/18 06:01 Hemoglobin C Crystals Not Reportable 12/01/18 06:01 Schistocytes Not Reportable 12/01/18 06:01 Malaria parasites Not Reportable 12/01/18 06:01 [place] Bodies Not Reportable 12/01/18 06:01 Hem Pathologist Commnt No 12/01/18 06:01 PT 15.0 Sec. (12.2-14.9) H 11/30/18 17:59 INR 1.14 (0.87-1.13) H 11/30/18 17:59 VBG pH 7.353 (7.320-7.420) 11/30/18 17:59 Sodium 148 mmol/L (137-145) H 12/01/18 06:01 Potassium 4.1 mmol/L (3.6-5.0) D 12/01/18 06:01 Chloride 114.4 mmol/L (98-107) H 12/01/18 06:01 Carbon Dioxide 17 mmol/L (22-30) L D 12/01/18 06:01 Anion Gap 21 mmol/L 12/01/18 06:01 BUN 43 mg/dL (7-17) H 12/01/18 06:01 Creatinine 1.2 mg/dL (0.7-1.2) 12/01/18 06:01 Estimated GFR 45 ml/min 12/01/18 06:01 BUN/Creatinine Ratio 36 % 12/01/18 06:01 Glucose 101 mg/dL (65-100) H 12/01/18 06:01 POC Glucose 106 (70-105) H 12/01/18 13:02 Lactic Acid 1.40 mmol/L (0.7-2.0) 11/30/18 21:23 Calcium 8.0 mg/dL (8.4-10.2) L 12/01/18 06:01 Total Bilirubin 0.50 mg/dL (0.1-1.2) 11/30/18 17:59 AST 32 units/L (5-40) 11/30/18 17:59 ALT 20 units/L (7-56) 11/30/18 17:59 Alkaline Phosphatase 91 units/L (35-129) 11/30/18 17:59 Total Protein 5.4 g/dL (6.3-8.2) L 11/30/18 17:59 Albumin 3.0 g/dL (3.9-5) L 11/30/18 17:59 Albumin/Globulin Ratio 1.3 % 11/30/18 17:59 Urine Color Yellow (Yellow) 11/30/18 18:11 Urine Turbidity Slightly-cloudy (Clear) 11/30/18 18:11 Urine pH 5.0 (5.0-7.0) 11/30/18 18:11 Ur Specific [place] 1.014 (1.003-1.030) 11/30/18 18:11 Urine Protein 100 mg/dl mg/dL (Negative) 11/30/18 18:11 Urine Glucose (UA) Neg mg/dL (Negative) 11/30/18 18:11 Urine Ketones Neg mg/dL (Negative) 11/30/18 18:11 Urine Blood Lg (Negative) 11/30/18 18:11 Urine Nitrite Neg (Negative) 11/30/18 18:11 Urine Bilirubin Neg (Negative) 11/30/18 18:11 Urine Urobilinogen < 2.0 mg/dL (<2.0) 11/30/18 18:11 Ur Leukocyte Esterase Tr (Negative) 11/30/18 18:11 Urine WBC (Auto) 7.0 /HPF (0.0-6.0) H 11/30/18 18:11 Urine RBC (Auto) > 182.0 /HPF (0.0-6.0) 11/30/18 18:11 Urine Bacteria (Auto) 1+ /HPF (Negative) 11/30/18 18:11 Urine Mucus Few /HPF 11/30/18 18:11
--- NOTE | 2018-12-01 14:55 | Consultation ---
HISTORY OF PRESENT ILLNESS: The patient is a 68-year-old woman who presents with confusion and severe left flank pain, nausea and vomiting, dehydration. She has had previous stroke, low thyroid and hypertension. She was found to have a distal ureteral stone, possible urosepsis. PAST MEDICAL HISTORY: As mentioned above with diabetes as well, stroke low thyroid. PAST SURGICAL HISTORY: Previous hernia surgery, thyroidectomy, colectomy. SOCIAL HISTORY: Negative. FAMILY HISTORY: Negative. ALLERGIES: Negative. MEDICATIONS: She is on Glucophage, lisinopril, Synthroid, Lexapro, Lipitor. REVIEW OF SYSTEMS: Left flank pain. PHYSICAL EXAMINATION: GENERAL: She is awake. She is in mild discomfort, left flank pain. White count is not elevated. She has a little bit of low platelets. VITAL SIGNS: She has 99 temperature, slightly tachycardic. HEENT: Normocephalic, nontraumatic. She has a little bit sometimes confused, but she knows who she is and she knows she can explain her medical history. ABDOMEN: Soft, nondistended with left flank pain. IMPRESSION: Left distal ureteral stone, possible sepsis, tachycardic. A 7 mm stone, moderate left hydronephrosis with other nonobstructing stone at least 12 other stones. PLAN: Cystoscopy, stent stabilization as a staged procedure. Follow up stone removal when she is stable. JOB# [id number] UMER/FUNMILAYO
[2018-12-01] MEDS: SODIUM CHLORIDE FLUSH SYRINGE 10 ML IV SCH (22:06)
[2018-12-01] MEDS: HumuLIN R SUB-Q SCH (22:17)
[2018-12-02 05:44] LABS: Hematocrit 30.9 % (30.3-42.9); Hemoglobin 9.9 gm/dl (10.1-14.3); Mean Corpuscular HGB Conc 32 % (30-34); Mean Corpuscular Volume 98 fl (79-97); Red Blood Count 3.15 M/mm3 (3.65-5.03); Red Cell Distribution Width 15.6 % (13.2-15.2)
[2018-12-02 05:45] LABS: Platelet Count 48 K/mm3 (140-440)
[2018-12-02 06:07] LABS: Calcium 8.3 mg/dL (8.4-10.2)
[2018-12-02] MEDS: ZOSYN/NS 2.25 GM/50ML 2.25 GM/50 ML BAG IV SCH ×3 (06:22→23:00)
[2018-12-02 07:04] LABS: Band Neutrophils # (Manual) 5.5 K/mm3; Basophils % (Manual) 0 % (0.0-1.8); Eosinophils % (Manual) 0 % (0.0-4.3); Total Cells Counted 100
[2018-12-02 07:05] LABS: Anisocytosis 1+; Poikilocytosis 1+
[2018-12-02 07:06] LABS: Burr Cells Few; Ovalocytes 1+; Platelet Estimate Consistent w Auto
--- NOTE | 2018-12-02 07:27 | Fluoroscopy Report ---
Retrograde pyelogram: Left renal calculus. The initial images demonstrates an irregular-shaped opacity overlies left renal area. Detail of the abdomen and urinary tract is obscured by excessive fecal matter. Injection of contrast into the left ureter demonstrates segmental visualization of the generally unremarkable ureter with partial opacification of the intrarenal collecting system mostly in the upper pole. Detail of the intrarenal urinary tract is significantly incomplete. A left nephroureteral stent was introduced and left in good position.
[2018-12-02] MEDS: HumuLIN R SUB-Q SCH ×3 (11:11→23:01)
[2018-12-02] MEDS: LOVENOX SUB-Q SCH (11:11)
[2018-12-02] MEDS: SODIUM CHLORIDE FLUSH SYRINGE 10 ML IV SCH ×2 (11:17→23:01)
--- NOTE | 2018-12-02 14:03 | Progress Note ---
Assessment and Plan Assessment and plan: Sepsis/septic shock. Patient responded to IV fluid hydration. Initiate pressors as needed. Left hydronephrosis, hydroureter secondary to left distal ureteral calculi. Urology consult. Patient is status post cystoscopy/RPG/stent Complicated Urinary tract infection. As above. Sepsis associated hypotension. As above. Diabetes mellitus type II. Continue Accu-Cheks and sliding scale. History of CVA. Supportive care. History Interval history: 68-year-old woman with a history of hypertension, diabetes, CVA, hypothyroidism comes emergency room with complaints of generalized weakness since Wednesday. Also had one episodes of nausea and vomiting on Wednesday evening. She complains of left flank pain, sharp, intermittent and 5 minutes, intensity 7/10, no radiation Hospitalist Physical - Constitutional Vitals: Temp Pulse Resp BP Pulse Ox 98.3 F 77 15 96/46 97 12/02/18 04:46 12/02/18 06:00 12/02/18 06:00 12/02/18 06:00 12/02/18 06:00 General appearance: Present: no acute distress - EENT Eyes: Present: PERRL, EOM intact ENT: hearing intact, clear oral mucosa, dentition normal - Neck Neck: Present: supple, normal ROM - Respiratory Respiratory effort: normal Respiratory: bilateral: CTA - Cardiovascular Rhythm: regular Heart Sounds: Present: S1 & S2. Absent: gallop, rub - Extremities Extremities: no ischemia, No edema, Full ROM - Abdominal General gastrointestinal: soft, non-tender, non-distended, normal bowel sounds - Integumentary Integumentary: Present: clear, warm, dry - Neurologic Neurologic: CNII-XII intact, moves all extremities Results - Labs CBC & Chem 7: 12/02/18 05:07 12/02/18 05:07 Labs: Laboratory Last Values WBC 15.8 K/mm3 (4.5-11.0) H 12/02/18 05:07 RBC 3.15 M/mm3 (3.65-5.03) L 12/02/18 05:07 Hgb 9.9 gm/dl (10.1-14.3) L 12/02/18 05:07 Hct 30.9 % (30.3-42.9) 12/02/18 05:07 MCV 98 fl (79-97) H 12/02/18 05:07 MCH 32 pg (28-32) 12/02/18 05:07 MCHC 32 % (30-34) 12/02/18 05:07 RDW 15.6 % (13.2-15.2) H 12/02/18 05:07 Plt Count 48 K/mm3 (140-440) L 12/02/18 05:07 Add Manual Diff Complete 12/02/18 05:07 Total Counted 100 12/02/18 05:07 Seg Neutrophils % Buggyman 12/02/18 05:07 Seg Neuts % (Manual) 53.0 % (40.0-70.0) 12/02/18 05:07 Band Neutrophils % 35.0 % 12/02/18 05:07 Lymphocytes % (Manual) 8.0 % (13.4-35.0) L 12/02/18 05:07 Reactive Lymphs % (Man) 0 % 12/02/18 05:07 Monocytes % (Manual) 4.0 % (0.0-7.3) 12/02/18 05:07 Eosinophils % (Manual) 0 % (0.0-4.3) 12/02/18 05:07 Basophils % (Manual) 0 % (0.0-1.8) 12/02/18 05:07 Metamyelocytes % 0 % 12/02/18 05:07 Myelocytes % 0 % 12/02/18 05:07 Promyelocytes % 0 % 12/02/18 05:07 Blast Cells % 0 % 12/02/18 05:07 Nucleated RBC % Not Reportable 12/02/18 05:07 Seg Neutrophils # Man 8.4 K/mm3 (1.8-7.7) H 12/02/18 05:07 Band Neutrophils # 5.5 K/mm3 12/02/18 05:07 Lymphocytes # (Manual) 1.3 K/mm3 (1.2-5.4) 12/02/18 05:07 Abs React Lymphs (Man) 0.0 K/mm3 12/02/18 05:07 Monocytes # (Manual) 0.6 K/mm3 (0.0-0.8) 12/02/18 05:07 Eosinophils # (Manual) 0.0 K/mm3 (0.0-0.4) 12/02/18 05:07 Basophils # (Manual) 0.0 K/mm3 (0.0-0.1) 12/02/18 05:07 Metamyelocytes # 0.0 K/mm3 12/02/18 05:07 Myelocytes # 0.0 K/mm3 12/02/18 05:07 Promyelocytes # 0.0 K/mm3 12/02/18 05:07 Blast Cells # 0.0 K/mm3 12/02/18 05:07 WBC Morphology Not Reportable 12/02/18 05:07 Hypersegmented Neuts Not Reportable 12/02/18 05:07 Hyposegmented Neuts Not Reportable 12/02/18 05:07 Hypogranular Neuts Not Reportable 12/02/18 05:07 Smudge Cells Not Reportable 12/02/18 05:07 Toxic Granulation Not Reportable 12/02/18 05:07 Toxic Vacuolation Not Reportable 12/02/18 05:07 Dohle Bodies Not Reportable 12/02/18 05:07 Pelger-Huet Anomaly Not Reportable 12/02/18 05:07 Janneth Rods Not Reportable 12/02/18 05:07 Platelet Estimate Consistent w auto 12/02/18 05:07 Clumped Platelets Not Reportable 12/02/18 05:07 Plt Clumps, EDTA Not Reportable 12/02/18 05:07 Large Platelets Not Reportable 12/02/18 05:07 Giant Platelets Not Reportable 12/02/18 05:07 Platelet Satelliting Not Reportable 12/02/18 05:07 Plt Morphology Comment Not Reportable 12/02/18 05:07 RBC Morphology Not Reportable 12/02/18 05:07 Dimorphic RBCs Not Reportable 12/02/18 05:07 Polychromasia Not Reportable 12/02/18 05:07 Hypochromasia Not Reportable 12/02/18 05:07 Poikilocytosis 1+ 12/02/18 05:07 Anisocytosis 1+ 12/02/18 05:07 Microcytosis Not Reportable 12/02/18 05:07 Macrocytosis Not Reportable 12/02/18 05:07 Spherocytes Not Reportable 12/02/18 05:07 Pappenheimer Bodies Not Reportable 12/02/18 05:07 Sickle Cells Not Reportable 12/02/18 05:07 Target Cells Not Reportable 12/02/18 05:07 Tear Drop Cells Not Reportable 12/02/18 05:07 Ovalocytes 1+ 12/02/18 05:07 Helmet Cells Not Reportable 12/02/18 05:07 Martin-[place] Bodies Not Reportable 12/02/18 05:07 [place] Rings Not Reportable 12/02/18 05:07 Karissa Cells Few 12/02/18 05:07 Bite Cells Not Reportable 12/02/18 05:07 Crenated Cell Not Reportable 12/02/18 05:07 Elliptocytes Few 12/02/18 05:07 Acanthocytes (Spur) Not Reportable 12/02/18 05:07 Rouleaux Not Reportable 12/02/18 05:07 Hemoglobin C Crystals Not Reportable 12/02/18 05:07 Schistocytes Not Reportable 12/02/18 05:07 Malaria parasites Not Reportable 12/02/18 05:07 Yinka Bodies Not Reportable 12/02/18 05:07 Hem Pathologist Commnt No 12/02/18 05:07 PT 15.0 Sec. (12.2-14.9) H 11/30/18 17:59 INR 1.14 (0.87-1.13) H 11/30/18 17:59 VBG pH 7.353 (7.320-7.420) 11/30/18 17:59 Sodium 150 mmol/L (137-145) H 12/02/18 05:07 Potassium 3.9 mmol/L (3.6-5.0) 12/02/18 05:07 Chloride 114.5 mmol/L (98-107) H 12/02/18 05:07 Carbon Dioxide 17 mmol/L (22-30) L 12/02/18 05:07 Anion Gap 22 mmol/L 12/02/18 05:07 BUN 49 mg/dL (7-17) H 12/02/18 05:07 Creatinine 1.1 mg/dL (0.7-1.2) 12/02/18 05:07 Estimated GFR 49 ml/min 12/02/18 05:07 BUN/Creatinine Ratio 45 % 12/02/18 05:07 Glucose 164 mg/dL (65-100) H 12/02/18 05:07 POC Glucose 161 (70-105) H 12/02/18 08:57 Lactic Acid 1.40 mmol/L (0.7-2.0) 11/30/18 21:23 Calcium 8.3 mg/dL (8.4-10.2) L 12/02/18 05:07 Total Bilirubin 0.50 mg/dL (0.1-1.2) 11/30/18 17:59 AST 32 units/L (5-40) 11/30/18 17:59 ALT 20 units/L (7-56) 11/30/18 17:59 Alkaline Phosphatase 91 units/L (35-129) 11/30/18 17:59 Total Protein 5.4 g/dL (6.3-8.2) L 11/30/18 17:59 Albumin 3.0 g/dL (3.9-5) L 11/30/18 17:59 Albumin/Globulin Ratio 1.3 % 11/30/18 17:59 Urine Color Yellow (Yellow) 11/30/18 18:11 Urine Turbidity Slightly-cloudy (Clear) 11/30/18 18:11 Urine pH 5.0 (5.0-7.0) 11/30/18 18:11 Ur Specific [place] 1.014 (1.003-1.030) 11/30/18 18:11 Urine Protein 100 mg/dl mg/dL (Negative) 11/30/18 18:11 Urine Glucose (UA) Neg mg/dL (Negative) 11/30/18 18:11 Urine Ketones Neg mg/dL (Negative) 11/30/18 18:11 Urine Blood Lg (Negative) 11/30/18 18:11 Urine Nitrite Neg (Negative) 11/30/18 18:11 Urine Bilirubin Neg (Negative) 11/30/18 18:11 Urine Urobilinogen < 2.0 mg/dL (<2.0) 11/30/18 18:11 Ur Leukocyte Esterase Tr (Negative) 11/30/18 18:11 Urine WBC (Auto) 7.0 /HPF (0.0-6.0) H 11/30/18 18:11 Urine RBC (Auto) > 182.0 /HPF (0.0-6.0) 11/30/18 18:11 Urine Bacteria (Auto) 1+ /HPF (Negative) 11/30/18 18:11 Urine Mucus Few /HPF 11/30/18 18:11
[2018-12-03] MEDS: ZOSYN/NS 2.25 GM/50ML 2.25 GM/50 ML BAG IV SCH ×3 (05:39→21:43)
[2018-12-03] MEDS: HumuLIN R SUB-Q SCH ×5 (09:18→21:42)
[2018-12-03] MEDS: LOVENOX SUB-Q SCH ×2 (09:18→09:19)
--- NOTE | 2018-12-03 11:17 | Progress Note ---
Assessment and Plan Assessment and plan: Sepsis/septic shock. Patient responded to IV fluid hydration. Initiate pressors as needed. Left hydronephrosis, hydroureter secondary to left distal ureteral calculi. Urology consult. Patient is status post cystoscopy/RPG/stent Complicated Urinary tract infection. As above. Sepsis associated hypotension. As above. Diabetes mellitus type II. Continue Accu-Cheks and sliding scale. History of CVA. Supportive care. Deconditioning. PT recommends CHERELLE History Interval history: 68-year-old woman with a history of hypertension, diabetes, CVA, hypothyroidism comes emergency room with complaints of generalized weakness since Wednesday. Also had one episodes of nausea and vomiting on Wednesday evening. She complains of left flank pain, sharp, intermittent and 5 minutes, intensity 7/10, no radiation. The patient was admitted with diagnosis of septic shock secondary to infected left distal ureteral calculi and complicated urinary tract infection. The patient was noted to have left hydronephrosis/hydroureter and sepsis associated hypotension. Patient's hypotension resolved with IV fluid hydration. Patient underwent cystoscopy/RPG/stent. Patient is doing well postoperatively. Hospitalist Physical - Constitutional Vitals: Temp Pulse Resp BP Pulse Ox 97.7 F 77 18 141/68 95 12/03/18 07:17 12/03/18 07:17 12/03/18 07:17 12/03/18 07:17 12/03/18 07:59 General appearance: Present: no acute distress - EENT Eyes: Present: PERRL, EOM intact ENT: hearing intact, clear oral mucosa, dentition normal - Neck Neck: Present: supple, normal ROM - Respiratory Respiratory effort: normal Respiratory: bilateral: CTA - Cardiovascular Rhythm: regular Heart Sounds: Present: S1 & S2. Absent: gallop, rub - Extremities Extremities: no ischemia, No edema, Full ROM - Abdominal General gastrointestinal: soft, non-tender, non-distended, normal bowel sounds - Integumentary Integumentary: Present: clear, warm, dry - Neurologic Neurologic: CNII-XII intact, moves all extremities Results - Labs CBC & Chem 7: 12/02/18 05:07 12/02/18 05:07 Labs: Laboratory Last Values WBC 15.8 K/mm3 (4.5-11.0) H 12/02/18 05:07 RBC 3.15 M/mm3 (3.65-5.03) L 12/02/18 05:07 Hgb 9.9 gm/dl (10.1-14.3) L 12/02/18 05:07 Hct 30.9 % (30.3-42.9) 12/02/18 05:07 MCV 98 fl (79-97) H 12/02/18 05:07 MCH 32 pg (28-32) 12/02/18 05:07 MCHC 32 % (30-34) 12/02/18 05:07 RDW 15.6 % (13.2-15.2) H 12/02/18 05:07 Plt Count 48 K/mm3 (140-440) L 12/02/18 05:07 Add Manual Diff Complete 12/02/18 05:07 Total Counted 100 12/02/18 05:07 Seg Neutrophils % Digital Advertising Analyst 12/02/18 05:07 Seg Neuts % (Manual) 53.0 % (40.0-70.0) 12/02/18 05:07 Band Neutrophils % 35.0 % 12/02/18 05:07 Lymphocytes % (Manual) 8.0 % (13.4-35.0) L 12/02/18 05:07 Reactive Lymphs % (Man) 0 % 12/02/18 05:07 Monocytes % (Manual) 4.0 % (0.0-7.3) 12/02/18 05:07 Eosinophils % (Manual) 0 % (0.0-4.3) 12/02/18 05:07 Basophils % (Manual) 0 % (0.0-1.8) 12/02/18 05:07 Metamyelocytes % 0 % 12/02/18 05:07 Myelocytes % 0 % 12/02/18 05:07 Promyelocytes % 0 % 12/02/18 05:07 Blast Cells % 0 % 12/02/18 05:07 Nucleated RBC % Not Reportable 12/02/18 05:07 Seg Neutrophils # Man 8.4 K/mm3 (1.8-7.7) H 12/02/18 05:07 Band Neutrophils # 5.5 K/mm3 12/02/18 05:07 Lymphocytes # (Manual) 1.3 K/mm3 (1.2-5.4) 12/02/18 05:07 Abs React Lymphs (Man) 0.0 K/mm3 12/02/18 05:07 Monocytes # (Manual) 0.6 K/mm3 (0.0-0.8) 12/02/18 05:07 Eosinophils # (Manual) 0.0 K/mm3 (0.0-0.4) 12/02/18 05:07 Basophils # (Manual) 0.0 K/mm3 (0.0-0.1) 12/02/18 05:07 Metamyelocytes # 0.0 K/mm3 12/02/18 05:07 Myelocytes # 0.0 K/mm3 12/02/18 05:07 Promyelocytes # 0.0 K/mm3 12/02/18 05:07 Blast Cells # 0.0 K/mm3 12/02/18 05:07 WBC Morphology Not Reportable 12/02/18 05:07 Hypersegmented Neuts Not Reportable 12/02/18 05:07 Hyposegmented Neuts Not Reportable 12/02/18 05:07 Hypogranular Neuts Not Reportable 12/02/18 05:07 Smudge Cells Not Reportable 12/02/18 05:07 Toxic Granulation Not Reportable 12/02/18 05:07 Toxic Vacuolation Not Reportable 12/02/18 05:07 Dohle Bodies Not Reportable 12/02/18 05:07 Pelger-Huet Anomaly Not Reportable 12/02/18 05:07 Janneth Rods Not Reportable 12/02/18 05:07 Platelet Estimate Consistent w auto 12/02/18 05:07 Clumped Platelets Not Reportable 12/02/18 05:07 Plt Clumps, EDTA Not Reportable 12/02/18 05:07 Large Platelets Not Reportable 12/02/18 05:07 Giant Platelets Not Reportable 12/02/18 05:07 Platelet Satelliting Not Reportable 12/02/18 05:07 Plt Morphology Comment Not Reportable 12/02/18 05:07 RBC Morphology Not Reportable 12/02/18 05:07 Dimorphic RBCs Not Reportable 12/02/18 05:07 Polychromasia Not Reportable 12/02/18 05:07 Hypochromasia Not Reportable 12/02/18 05:07 Poikilocytosis 1+ 12/02/18 05:07 Anisocytosis 1+ 12/02/18 05:07 Microcytosis Not Reportable 12/02/18 05:07 Macrocytosis Not Reportable 12/02/18 05:07 Spherocytes Not Reportable 12/02/18 05:07 Pappenheimer Bodies Not Reportable 12/02/18 05:07 Sickle Cells Not Reportable 12/02/18 05:07 Target Cells Not Reportable 12/02/18 05:07 Tear Drop Cells Not Reportable 12/02/18 05:07 Ovalocytes 1+ 12/02/18 05:07 Helmet Cells Not Reportable 12/02/18 05:07 Martin-[place] Bodies Not Reportable 12/02/18 05:07 [place] Rings Not Reportable 12/02/18 05:07 [place] Cells Few 12/02/18 05:07 Bite Cells Not Reportable 12/02/18 05:07 Crenated Cell Not Reportable 12/02/18 05:07 Elliptocytes Few 12/02/18 05:07 Acanthocytes (Spur) Not Reportable 12/02/18 05:07 Rouleaux Not Reportable 12/02/18 05:07 Hemoglobin C Crystals Not Reportable 12/02/18 05:07 Schistocytes Not Reportable 12/02/18 05:07 Malaria parasites Not Reportable 12/02/18 05:07 Yinka Bodies Not Reportable 12/02/18 05:07 Hem Pathologist Commnt No 12/02/18 05:07 PT 15.0 Sec. (12.2-14.9) H 11/30/18 17:59 INR 1.14 (0.87-1.13) H 11/30/18 17:59 VBG pH 7.353 (7.320-7.420) 11/30/18 17:59 Sodium 150 mmol/L (137-145) H 12/02/18 05:07 Potassium 3.9 mmol/L (3.6-5.0) 12/02/18 05:07 Chloride 114.5 mmol/L (98-107) H 12/02/18 05:07 Carbon Dioxide 17 mmol/L (22-30) L 12/02/18 05:07 Anion Gap 22 mmol/L 12/02/18 05:07 BUN 49 mg/dL (7-17) H 12/02/18 05:07 Creatinine 1.1 mg/dL (0.7-1.2) 12/02/18 05:07 Estimated GFR 49 ml/min 12/02/18 05:07 BUN/Creatinine Ratio 45 % 12/02/18 05:07 Glucose 164 mg/dL (65-100) H 12/02/18 05:07 POC Glucose 153 (70-105) H 12/03/18 07:28 Lactic Acid 1.40 mmol/L (0.7-2.0) 11/30/18 21:23 Calcium 8.3 mg/dL (8.4-10.2) L 12/02/18 05:07 Total Bilirubin 0.50 mg/dL (0.1-1.2) 11/30/18 17:59 AST 32 units/L (5-40) 11/30/18 17:59 ALT 20 units/L (7-56) 11/30/18 17:59 Alkaline Phosphatase 91 units/L (35-129) 11/30/18 17:59 Total Protein 5.4 g/dL (6.3-8.2) L 11/30/18 17:59 Albumin 3.0 g/dL (3.9-5) L 11/30/18 17:59 Albumin/Globulin Ratio 1.3 % 11/30/18 17:59 Urine Color Yellow (Yellow) 11/30/18 18:11 Urine Turbidity Slightly-cloudy (Clear) 11/30/18 18:11 Urine pH 5.0 (5.0-7.0) 11/30/18 18:11 Ur Specific [place] 1.014 (1.003-1.030) 11/30/18 18:11 Urine Protein 100 mg/dl mg/dL (Negative) 11/30/18 18:11 Urine Glucose (UA) Neg mg/dL (Negative) 11/30/18 18:11 Urine Ketones Neg mg/dL (Negative) 11/30/18 18:11 Urine Blood Lg (Negative) 11/30/18 18:11 Urine Nitrite Neg (Negative) 11/30/18 18:11 Urine Bilirubin Neg (Negative) 11/30/18 18:11 Urine Urobilinogen < 2.0 mg/dL (<2.0) 11/30/18 18:11 Ur Leukocyte Esterase Tr (Negative) 11/30/18 18:11 Urine WBC (Auto) 7.0 /HPF (0.0-6.0) H 11/30/18 18:11 Urine RBC (Auto) > 182.0 /HPF (0.0-6.0) 11/30/18 18:11 Urine Bacteria (Auto) 1+ /HPF (Negative) 11/30/18 18:11 Urine Mucus Few /HPF 11/30/18 18:11
[2018-12-03] MEDS: SODIUM CHLORIDE FLUSH SYRINGE 10 ML IV SCH ×2 (12:51→21:44)
[2018-12-04] MEDS: ZOSYN/NS 2.25 GM/50ML 2.25 GM/50 ML BAG IV SCH ×3 (05:49→22:56)
[2018-12-04] MEDS: HumuLIN R SUB-Q SCH ×4 (08:00→22:55)
--- NOTE | 2018-12-04 08:24 | Progress Note ---
Assessment and Plan Assessment and plan: Sepsis/septic shock. Patient responded to IV fluid hydration. Initiate pressors as needed. Left hydronephrosis, hydroureter secondary to left distal ureteral calculi. Urology consult. Patient is status post cystoscopy/RPG/stent Complicated Urinary tract infection. As above. Sepsis associated hypotension. As above. Diabetes mellitus type II. Continue Accu-Cheks and sliding scale. History of CVA. Supportive care. Deconditioning. PT recommends CHERELLE History Interval history: 68-year-old woman with a history of hypertension, diabetes, CVA, hypothyroidism comes emergency room with complaints of generalized weakness since Wednesday. Also had one episodes of nausea and vomiting on Wednesday evening. She complains of left flank pain, sharp, intermittent and 5 minutes, intensity 7/10, no radiation. The patient was admitted with diagnosis of septic shock secondary to infected left distal ureteral calculi and complicated urinary tract infection. The patient was noted to have left hydronephrosis/hydroureter and sepsis associated hypotension. Patient's hypotension resolved with IV fluid hydration. Patient underwent cystoscopy/RPG/stent. Patient is doing well postoperatively. Physical therapy evaluated the patient and recommends CHERELLE. Hospitalist Physical - Constitutional Vitals: Temp Pulse Resp BP Pulse Ox 98.8 F 60 18 144/77 96 12/04/18 03:04 12/04/18 06:26 12/04/18 03:04 12/04/18 03:04 12/04/18 07:41 General appearance: Present: no acute distress - EENT Eyes: Present: PERRL, EOM intact ENT: hearing intact, clear oral mucosa, dentition normal - Neck Neck: Present: supple, normal ROM - Respiratory Respiratory effort: normal Respiratory: bilateral: CTA - Cardiovascular Rhythm: regular Heart Sounds: Present: S1 & S2. Absent: gallop, rub - Extremities Extremities: no ischemia, No edema, Full ROM - Abdominal General gastrointestinal: soft, non-tender, non-distended, normal bowel sounds - Integumentary Integumentary: Present: clear, warm, dry - Neurologic Neurologic: CNII-XII intact, moves all extremities Results - Labs CBC & Chem 7: 12/02/18 05:07 12/02/18 05:07 Labs: Laboratory Last Values WBC 15.8 K/mm3 (4.5-11.0) H 12/02/18 05:07 RBC 3.15 M/mm3 (3.65-5.03) L 12/02/18 05:07 Hgb 9.9 gm/dl (10.1-14.3) L 12/02/18 05:07 Hct 30.9 % (30.3-42.9) 12/02/18 05:07 MCV 98 fl (79-97) H 12/02/18 05:07 MCH 32 pg (28-32) 12/02/18 05:07 MCHC 32 % (30-34) 12/02/18 05:07 RDW 15.6 % (13.2-15.2) H 12/02/18 05:07 Plt Count 48 K/mm3 (140-440) L 12/02/18 05:07 Add Manual Diff Complete 12/02/18 05:07 Total Counted 100 12/02/18 05:07 Seg Neutrophils % Production Planner Scheduler 12/02/18 05:07 Seg Neuts % (Manual) 53.0 % (40.0-70.0) 12/02/18 05:07 Band Neutrophils % 35.0 % 12/02/18 05:07 Lymphocytes % (Manual) 8.0 % (13.4-35.0) L 12/02/18 05:07 Reactive Lymphs % (Man) 0 % 12/02/18 05:07 Monocytes % (Manual) 4.0 % (0.0-7.3) 12/02/18 05:07 Eosinophils % (Manual) 0 % (0.0-4.3) 12/02/18 05:07 Basophils % (Manual) 0 % (0.0-1.8) 12/02/18 05:07 Metamyelocytes % 0 % 12/02/18 05:07 Myelocytes % 0 % 12/02/18 05:07 Promyelocytes % 0 % 12/02/18 05:07 Blast Cells % 0 % 12/02/18 05:07 Nucleated RBC % Not Reportable 12/02/18 05:07 Seg Neutrophils # Man 8.4 K/mm3 (1.8-7.7) H 12/02/18 05:07 Band Neutrophils # 5.5 K/mm3 12/02/18 05:07 Lymphocytes # (Manual) 1.3 K/mm3 (1.2-5.4) 12/02/18 05:07 Abs React Lymphs (Man) 0.0 K/mm3 12/02/18 05:07 Monocytes # (Manual) 0.6 K/mm3 (0.0-0.8) 12/02/18 05:07 Eosinophils # (Manual) 0.0 K/mm3 (0.0-0.4) 12/02/18 05:07 Basophils # (Manual) 0.0 K/mm3 (0.0-0.1) 12/02/18 05:07 Metamyelocytes # 0.0 K/mm3 12/02/18 05:07 Myelocytes # 0.0 K/mm3 12/02/18 05:07 Promyelocytes # 0.0 K/mm3 12/02/18 05:07 Blast Cells # 0.0 K/mm3 12/02/18 05:07 WBC Morphology Not Reportable 12/02/18 05:07 Hypersegmented Neuts Not Reportable 12/02/18 05:07 Hyposegmented Neuts Not Reportable 12/02/18 05:07 Hypogranular Neuts Not Reportable 12/02/18 05:07 Smudge Cells Not Reportable 12/02/18 05:07 Toxic Granulation Not Reportable 12/02/18 05:07 Toxic Vacuolation Not Reportable 12/02/18 05:07 Dohle Bodies Not Reportable 12/02/18 05:07 Pelger-Huet Anomaly Not Reportable 12/02/18 05:07 Janneth Rods Not Reportable 12/02/18 05:07 Platelet Estimate Consistent w auto 12/02/18 05:07 Clumped Platelets Not Reportable 12/02/18 05:07 Plt Clumps, EDTA Not Reportable 12/02/18 05:07 Large Platelets Not Reportable 12/02/18 05:07 Giant Platelets Not Reportable 12/02/18 05:07 Platelet Satelliting Not Reportable 12/02/18 05:07 Plt Morphology Comment Not Reportable 12/02/18 05:07 RBC Morphology Not Reportable 12/02/18 05:07 Dimorphic RBCs Not Reportable 12/02/18 05:07 Polychromasia Not Reportable 12/02/18 05:07 Hypochromasia Not Reportable 12/02/18 05:07 Poikilocytosis 1+ 12/02/18 05:07 Anisocytosis 1+ 01/11/19 05:07 Microcytosis Not Reportable 12/02/18 05:07 Macrocytosis Not Reportable 12/02/18 05:07 Spherocytes Not Reportable 12/02/18 05:07 Pappenheimer Bodies Not Reportable 12/02/18 05:07 Sickle Cells Not Reportable 12/02/18 05:07 Target Cells Not Reportable 12/02/18 05:07 Tear Drop Cells Not Reportable 12/02/18 05:07 Ovalocytes 1+ 12/02/18 05:07 Helmet Cells Not Reportable 12/02/18 05:07 Martin-[place] Bodies Not Reportable 12/02/18 05:07 [place] Rings Not Reportable 12/02/18 05:07 Karissa Cells Few 12/02/18 05:07 Bite Cells Not Reportable 12/02/18 05:07 Crenated Cell Not Reportable 12/02/18 05:07 Elliptocytes Few 12/02/18 05:07 Acanthocytes (Spur) Not Reportable 12/02/18 05:07 Rouleaux Not Reportable 12/02/18 05:07 Hemoglobin C Crystals Not Reportable 12/02/18 05:07 Schistocytes Not Reportable 12/02/18 05:07 Malaria parasites Not Reportable 12/02/18 05:07 Yinka Bodies Not Reportable 12/02/18 05:07 Hem Pathologist Commnt No 12/02/18 05:07 PT 15.0 Sec. (12.2-14.9) H 11/30/18 17:59 INR 1.14 (0.87-1.13) H 11/30/18 17:59 VBG pH 7.353 (7.320-7.420) 11/30/18 17:59 Sodium 150 mmol/L (137-145) H 12/02/18 05:07 Potassium 3.9 mmol/L (3.6-5.0) 12/02/18 05:07 Chloride 114.5 mmol/L (98-107) H 12/02/18 05:07 Carbon Dioxide 17 mmol/L (22-30) L 12/02/18 05:07 Anion Gap 22 mmol/L 12/02/18 05:07 BUN 49 mg/dL (7-17) H 12/02/18 05:07 Creatinine 1.1 mg/dL (0.7-1.2) 12/02/18 05:07 Estimated GFR 49 ml/min 12/02/18 05:07 BUN/Creatinine Ratio 45 % 12/02/18 05:07 Glucose 164 mg/dL (65-100) H 12/02/18 05:07 POC Glucose 129 (70-105) H 12/04/18 07:48 Lactic Acid 1.40 mmol/L (0.7-2.0) 11/30/18 21:23 Calcium 8.3 mg/dL (8.4-10.2) L 12/02/18 05:07 Total Bilirubin 0.50 mg/dL (0.1-1.2) 11/30/18 17:59 AST 32 units/L (5-40) 11/30/18 17:59 ALT 20 units/L (7-56) 11/30/18 17:59 Alkaline Phosphatase 91 units/L (35-129) 11/30/18 17:59 Total Protein 5.4 g/dL (6.3-8.2) L 11/30/18 17:59 Albumin 3.0 g/dL (3.9-5) L 11/30/18 17:59 Albumin/Globulin Ratio 1.3 % 11/30/18 17:59 Urine Color Yellow (Yellow) 11/30/18 18:11 Urine Turbidity Slightly-cloudy (Clear) 11/30/18 18:11 Urine pH 5.0 (5.0-7.0) 11/30/18 18:11 Ur Specific [place] 1.014 (1.003-1.030) 11/30/18 18:11 Urine Protein 100 mg/dl mg/dL (Negative) 11/30/18 18:11 Urine Glucose (UA) Neg mg/dL (Negative) 11/30/18 18:11 Urine Ketones Neg mg/dL (Negative) 11/30/18 18:11 Urine Blood Lg (Negative) 11/30/18 18:11 Urine Nitrite Neg (Negative) 11/30/18 18:11 Urine Bilirubin Neg (Negative) 11/30/18 18:11 Urine Urobilinogen < 2.0 mg/dL (<2.0) 11/30/18 18:11 Ur Leukocyte Esterase Tr (Negative) 11/30/18 18:11 Urine WBC (Auto) 7.0 /HPF (0.0-6.0) H 11/30/18 18:11 Urine RBC (Auto) > 182.0 /HPF (0.0-6.0) 11/30/18 18:11 Urine Bacteria (Auto) 1+ /HPF (Negative) 11/30/18 18:11 Urine Mucus Few /HPF 11/30/18 18:11
[2018-12-04] MEDS: LOVENOX SUB-Q SCH (09:31)
[2018-12-04] MEDS: SODIUM CHLORIDE FLUSH SYRINGE 10 ML IV SCH ×2 (09:37→22:56)
[2018-12-04] MEDS: NACL 0.9% 1000 ML 1,000 ML IV SCH (14:35)
[2018-12-04] MEDS ORDERED: DULCOLAX PR PRN (18:10)
[2018-12-04] MEDS ORDERED: DULCOLAX PR ONE (20:35)
[2018-12-04] MEDS: COLACE PO SCH (22:54)
[2018-12-05] MEDS: NACL 0.9% 1000 ML 1,000 ML IV SCH (01:11)
[2018-12-05] MEDS: SODIUM CHLORIDE FLUSH SYRINGE 10 ML IV SCH ×3 (01:11→21:44)
[2018-12-05 03:33] LABS: Hemoglobin 9.3 gm/dl (10.1-14.3); Mean Corpuscular HGB Conc 33 % (30-34); Mean Corpuscular Volume 95 fl (79-97); Red Blood Count 2.95 M/mm3 (3.65-5.03); Red Cell Distribution Width 14.3 % (13.2-15.2)
[2018-12-05 03:37] LABS: Platelet Count 35 K/mm3 (140-440)
[2018-12-05 03:43] LABS: BUN/Creatinine Ratio 58; Blood Urea Nitrogen 23 mg/dL (7-17); Calcium 7.7 mg/dL (8.4-10.2); Hemolysis Index 22
[2018-12-05] MEDS ORDERED: K-DUR PO ONE (04:10)
[2018-12-05] MEDS: ZOSYN/NS 2.25 GM/50ML 2.25 GM/50 ML BAG IV SCH (05:10)
[2018-12-05] MEDS: KCL 10MEQ/100ML 10 MEQ/100 ML BAG IV SCH ×4 (05:12→10:30)
[2018-12-05 05:26] LABS: Band Neutrophils # (Manual) 0.6 K/mm3; Basophils % (Manual) 0 % (0.0-1.8); Eosinophils % (Manual) 0 % (0.0-4.3); Total Cells Counted 100
[2018-12-05 05:28] LABS: Platelet Estimate Appears Decreased
[2018-12-05] MEDS: HumuLIN R SUB-Q SCH ×4 (08:12→22:04)
--- NOTE | 2018-12-05 10:11 | Progress Note ---
Assessment and Plan Assessment and plan: Sepsis. Blood culture reveals Proteus bacteremia intermediate to Zosyn. Therefore, we will change to Rocephin. Left hydronephrosis, hydroureter secondary to left distal ureteral calculi. Urology consult. Patient is status post cystoscopy/RPG/stent Complicated Urinary tract infection. As above. Sepsis associated hypotension. Resolved with IV fluid resuscitation. Thrombocytopenia. ? Etiology sepsis versus HIT. Hold Lovenox. Check HIT panel Hypernatremia. Change IV fluids to D5 W. Hypokalemia. Replete potassium. Diabetes mellitus type II. Continue Accu-Cheks and sliding scale. History of CVA. Supportive care. Deconditioning. PT recommends CHERELLE, awaiting placement. History Interval history: 68-year-old woman with a history of hypertension, diabetes, CVA, hypothyroidism comes emergency room with complaints of generalized weakness since Wednesday. Also had one episodes of nausea and vomiting on Wednesday evening. She complains of left flank pain, sharp, intermittent and 5 minutes, intensity 7/10, no radiation. The patient was admitted with diagnosis of septic shock secondary to infected left distal ureteral calculi and complicated urinary tract infection. The patient was noted to have left hydronephrosis/hydroureter and sepsis associated hypotension. Patient's hypotension resolved with IV fluid hydration. Patient underwent cystoscopy/RPG/stent. Patient is doing well postoperatively. Physical therapy evaluated the patient and recommends CHERELLE. Hospitalist Physical - Constitutional Vitals: Temp Pulse Resp BP Pulse Ox 98.9 F 79 20 138/74 98 12/05/18 07:38 12/05/18 07:38 12/05/18 07:38 12/05/18 07:38 12/05/18 07:38 General appearance: Present: no acute distress - EENT Eyes: Present: PERRL, EOM intact ENT: hearing intact, clear oral mucosa, dentition normal - Neck Neck: Present: supple, normal ROM - Respiratory Respiratory effort: normal Respiratory: bilateral: CTA - Cardiovascular Rhythm: regular Heart Sounds: Present: S1 & S2. Absent: gallop, rub - Extremities Extremities: no ischemia, No edema, Full ROM - Abdominal General gastrointestinal: soft, non-tender, non-distended, normal bowel sounds - Integumentary Integumentary: Present: clear, warm, dry - Neurologic Neurologic: CNII-XII intact, moves all extremities Results - Labs CBC & Chem 7: 12/05/18 02:56 12/05/18 02:56 Labs: Laboratory Last Values WBC 7.9 K/mm3 (4.5-11.0) 12/05/18 02:56 RBC 2.95 M/mm3 (3.65-5.03) L 12/05/18 02:56 Hgb 9.3 gm/dl (10.1-14.3) L 12/05/18 02:56 Hct 28.0 % (30.3-42.9) L 12/05/18 02:56 MCV 95 fl (79-97) 12/05/18 02:56 MCH 32 pg (28-32) 12/05/18 02:56 MCHC 33 % (30-34) 12/05/18 02:56 RDW 14.3 % (13.2-15.2) 12/05/18 02:56 Plt Count 35 K/mm3 (140-440) L 12/05/18 02:56 Add Manual Diff Complete 12/05/18 02:56 Total Counted 100 12/05/18 02:56 Seg Neutrophils % [place] [employer] 12/02/18 05:07 Seg Neuts % (Manual) 78.0 % (40.0-70.0) H 12/05/18 02:56 Band Neutrophils % 7.0 % 12/05/18 02:56 Lymphocytes % (Manual) 8.0 % (13.4-35.0) L 12/05/18 02:56 Reactive Lymphs % (Man) 0 % 12/05/18 02:56 Monocytes % (Manual) 7.0 % (0.0-7.3) 12/05/18 02:56 Eosinophils % (Manual) 0 % (0.0-4.3) 12/05/18 02:56 Basophils % (Manual) 0 % (0.0-1.8) 12/05/18 02:56 Metamyelocytes % 0 % 12/05/18 02:56 Myelocytes % 0 % 12/05/18 02:56 Promyelocytes % 0 % 12/05/18 02:56 Blast Cells % 0 % 12/05/18 02:56 Nucleated RBC % Not Reportable 12/05/18 02:56 Seg Neutrophils # Man 6.2 K/mm3 (1.8-7.7) 12/05/18 02:56 Band Neutrophils # 0.6 K/mm3 12/05/18 02:56 Lymphocytes # (Manual) 0.6 K/mm3 (1.2-5.4) L 12/05/18 02:56 Abs React Lymphs (Man) 0.0 K/mm3 12/05/18 02:56 Monocytes # (Manual) 0.6 K/mm3 (0.0-0.8) 12/05/18 02:56 Eosinophils # (Manual) 0.0 K/mm3 (0.0-0.4) 12/05/18 02:56 Basophils # (Manual) 0.0 K/mm3 (0.0-0.1) 12/05/18 02:56 Metamyelocytes # 0.0 K/mm3 12/05/18 02:56 Myelocytes # 0.0 K/mm3 12/05/18 02:56 Promyelocytes # 0.0 K/mm3 12/05/18 02:56 Blast Cells # 0.0 K/mm3 12/05/18 02:56 WBC Morphology Not Reportable 12/05/18 02:56 Hypersegmented Neuts Not Reportable 12/05/18 02:56 Hyposegmented Neuts Not Reportable 12/05/18 02:56 Hypogranular Neuts Not Reportable 12/05/18 02:56 Smudge Cells Not Reportable 12/05/18 02:56 Toxic Granulation Not Reportable 12/05/18 02:56 Toxic Vacuolation Not Reportable 12/05/18 02:56 Dohle Bodies Not Reportable 12/05/18 02:56 Pelger-Huet Anomaly Not Reportable 12/05/18 02:56 Janneth Rods Not Reportable 12/05/18 02:56 Platelet Estimate Appears decreased 12/05/18 02:56 Clumped Platelets Not Reportable 12/05/18 02:56 Plt Clumps, EDTA Not Reportable 12/05/18 02:56 Large Platelets Not Reportable 12/05/18 02:56 Giant Platelets Not Reportable 12/05/18 02:56 Platelet Satelliting Not Reportable 12/05/18 02:56 Plt Morphology Comment Not Reportable 12/05/18 02:56 RBC Morphology Not Reportable 12/05/18 02:56 Dimorphic RBCs Not Reportable 12/05/18 02:56 Polychromasia Not Reportable 12/05/18 02:56 Hypochromasia Not Reportable 12/05/18 02:56 Poikilocytosis Not Reportable 12/05/18 02:56 Anisocytosis Not Reportable 12/05/18 02:56 Microcytosis Not Reportable 12/05/18 02:56 Macrocytosis Not Reportable 12/05/18 02:56 Spherocytes Not Reportable 12/05/18 02:56 Pappenheimer Bodies Not Reportable 12/05/18 02:56 Sickle Cells Not Reportable 12/05/18 02:56 Target Cells Not Reportable 12/05/18 02:56 Tear Drop Cells Not Reportable 12/05/18 02:56 Ovalocytes Not Reportable 12/05/18 02:56 Helmet Cells Not Reportable 12/05/18 02:56 [place] Bodies Not Reportable 12/05/18 02:56 [place] Rings Not Reportable 12/05/18 02:56 [place] Cells Not Reportable 12/05/18 02:56 Bite Cells Not Reportable 12/05/18 02:56 Crenated Cell Not Reportable 12/05/18 02:56 Elliptocytes Not Reportable 12/05/18 02:56 Acanthocytes (Spur) Not Reportable 12/05/18 02:56 Rouleaux Not Reportable 12/05/18 02:56 Hemoglobin C Crystals Not Reportable 12/05/18 02:56 Schistocytes Not Reportable 12/05/18 02:56 Malaria parasites Not Reportable 12/05/18 02:56 [place] Bodies Not Reportable 12/05/18 02:56 Hem Pathologist Commnt No 12/05/18 02:56 PT 15.0 Sec. (12.2-14.9) H 11/30/18 17:59 INR 1.14 (0.87-1.13) H 11/30/18 17:59 VBG pH 7.353 (7.320-7.420) 11/30/18 17:59 Sodium 152 mmol/L (137-145) H 12/05/18 02:56 Potassium 2.9 mmol/L (3.6-5.0) L* D 12/05/18 02:56 Chloride 118.5 mmol/L (98-107) H 12/05/18 02:56 Carbon Dioxide 25 mmol/L (22-30) D 12/05/18 02:56 Anion Gap 11 mmol/L 12/05/18 02:56 BUN 23 mg/dL (7-17) H 12/05/18 02:56 Creatinine 0.4 mg/dL (0.7-1.2) L D 12/05/18 02:56 Estimated GFR > 60 ml/min 12/05/18 02:56 BUN/Creatinine Ratio 58 % 12/05/18 02:56 Glucose 81 mg/dL (65-100) 12/05/18 02:56 POC Glucose 112 (70-105) H 12/05/18 07:45 Lactic Acid 1.40 mmol/L (0.7-2.0) 11/30/18 21:23 Calcium 7.7 mg/dL (8.4-10.2) L 12/05/18 02:56 Total Bilirubin 0.50 mg/dL (0.1-1.2) 11/30/18 17:59 AST 32 units/L (5-40) 11/30/18 17:59 ALT 20 units/L (7-56) 11/30/18 17:59 Alkaline Phosphatase 91 units/L (35-129) 11/30/18 17:59 Total Protein 5.4 g/dL (6.3-8.2) L 11/30/18 17:59 Albumin 3.0 g/dL (3.9-5) L 11/30/18 17:59 Albumin/Globulin Ratio 1.3 % 11/30/18 17:59 Urine Color Yellow (Yellow) 11/30/18 18:11 Urine Turbidity Slightly-cloudy (Clear) 11/30/18 18:11 Urine pH 5.0 (5.0-7.0) 11/30/18 18:11 Ur Specific [place] 1.014 (1.003-1.030) 11/30/18 18:11 Urine Protein 100 mg/dl mg/dL (Negative) 11/30/18 18:11 Urine Glucose (UA) Neg mg/dL (Negative) 11/30/18 18:11 Urine Ketones Neg mg/dL (Negative) 11/30/18 18:11 Urine Blood Lg (Negative) 11/30/18 18:11 Urine Nitrite Neg (Negative) 11/30/18 18:11 Urine Bilirubin Neg (Negative) 11/30/18 18:11 Urine Urobilinogen < 2.0 mg/dL (<2.0) 11/30/18 18:11 Ur Leukocyte Esterase Tr (Negative) 11/30/18 18:11 Urine WBC (Auto) 7.0 /HPF (0.0-6.0) H 11/30/18 18:11 Urine RBC (Auto) > 182.0 /HPF (0.0-6.0) 11/30/18 18:11 Urine Bacteria (Auto) 1+ /HPF (Negative) 11/30/18 18:11 Urine Mucus Few /HPF 11/30/18 18:11
[2018-12-05] MEDS: LOVENOX SUB-Q SCH (10:52)
[2018-12-05] MEDS: COLACE PO SCH ×2 (10:52→21:43)
[2018-12-05] MEDS: KCL 40 MEQ in D5W 1,000 ML IV SCH ×2 (11:56→23:44)
[2018-12-05] MEDS: ROCEPHIN/NS 1 GM/50 ML 1 GM/50 ML BAG IV SCH (15:06)
[2018-12-06 05:56] LABS: Basophils % (Auto) 0.1 % (0.0-1.8); Eosinophils # (Auto) 0.2 K/mm3 (0.0-0.4); Eosinophils % (Auto) 1.9 % (0.0-4.3); Hematocrit 29.8 % (30.3-42.9); Hemoglobin 9.9 gm/dl (10.1-14.3); Lymphocytes # (Auto) 1.2 K/mm3 (1.2-5.4); Lymphocytes % (Auto) 12.2 % (13.4-35.0); Mean Corpuscular HGB Conc 33 % (30-34); Mean Corpuscular Volume 95 fl (79-97); Monocytes # (Auto) 0.8 K/mm3 (0.0-0.8); Monocytes % (Auto) 7.8 % (0.0-7.3); Red Blood Count 3.12 M/mm3 (3.65-5.03); Red Cell Distribution Width 14.1 % (13.2-15.2)
[2018-12-06 06:12] LABS: Platelet Count 67 K/mm3 (140-440)
[2018-12-06 06:16] LABS: BUN/Creatinine Ratio 30; Blood Urea Nitrogen 12 mg/dL (7-17); Calcium 7.6 mg/dL (8.4-10.2); Hemolysis Index 9
[2018-12-06] MEDS: HumuLIN R SUB-Q SCH ×4 (08:27→21:49)
[2018-12-06] MEDS: KCL 40 MEQ in D5W 1,000 ML IV SCH ×2 (09:18→22:44)
[2018-12-06] MEDS: COLACE PO SCH ×2 (09:19→21:49)
[2018-12-06] MEDS: SODIUM CHLORIDE FLUSH SYRINGE 10 ML IV SCH ×2 (09:19→21:49)
[2018-12-06] MEDS: ROCEPHIN/NS 1 GM/50 ML 1 GM/50 ML BAG IV SCH (09:24)
--- NOTE | 2018-12-06 12:19 | Progress Note ---
Assessment and Plan Assessment and plan: Sepsis. Blood culture reveals Proteus bacteremia intermediate to Zosyn. Therefore, we will change to Rocephin. Left hydronephrosis, hydroureter secondary to left distal ureteral calculi. Urology consult. Patient is status post cystoscopy/RPG/stent Complicated Urinary tract infection. As above. Sepsis associated hypotension. Resolved with IV fluid resuscitation. Thrombocytopenia. ? Etiology sepsis versus HIT. Hold Lovenox. Check HIT panel Hypernatremia. Change IV fluids to D5 W. Hypokalemia. Replete potassium. Diabetes mellitus type II. Uncontrolled. Will start scheduled Novolin 70/30 Continue Accu-Cheks and sliding scale. History of CVA. Supportive care. Deconditioning. PT recommends CHERELLE, awaiting placement. Awaiting placement History Interval history: feels better, Concerened about elevated blood glucose Hospitalist Physical - Physical exam Narrative exam: GEN: Not in acute distress,lying in bed HEENT: Normocephalic, atraumatic, Neck: supple, No JVD Lungs: Clear to auscultation, no wheeze Heart:S1 and S2 regular, no murmurs, rubs or gallop, Abd:soft, non tender, non distended, normal bowel sounds Ext: No edema, no clubbing or cyanosis Neuro: Awake,alert, oriented x 3, No focal signs Psych:Normal mood - Constitutional Vitals: Temp Pulse Resp BP Pulse Ox 99.0 F 76 18 147/80 96 12/06/18 07:08 12/06/18 07:08 12/06/18 07:08 12/06/18 07:08 12/06/18 07:08 General appearance: Present: no acute distress Results - Labs CBC & Chem 7: 12/06/18 05:04 12/06/18 05:04 Labs: Laboratory Last Values WBC 9.9 K/mm3 (4.5-11.0) 12/06/18 05:04 RBC 3.12 M/mm3 (3.65-5.03) L 12/06/18 05:04 Hgb 9.9 gm/dl (10.1-14.3) L 12/06/18 05:04 Hct 29.8 % (30.3-42.9) L 12/06/18 05:04 MCV 95 fl (79-97) 12/06/18 05:04 MCH 32 pg (28-32) 12/06/18 05:04 MCHC 33 % (30-34) 12/06/18 05:04 RDW 14.1 % (13.2-15.2) 12/06/18 05:04 Plt Count 67 K/mm3 (140-440) L 12/06/18 05:04 Lymph % (Auto) 12.2 % (13.4-35.0) L 12/06/18 05:04 [place] % (Auto) 7.8 % (0.0-7.3) H 12/06/18 05:04 Eos % (Auto) 1.9 % (0.0-4.3) 12/06/18 05:04 Baso % (Auto) 0.1 % (0.0-1.8) 12/06/18 05:04 Lymph # 1.2 K/mm3 (1.2-5.4) 12/06/18 05:04 [place] # 0.8 K/mm3 (0.0-0.8) 12/06/18 05:04 Eos # 0.2 K/mm3 (0.0-0.4) 12/06/18 05:04 Baso # 0.0 K/mm3 (0.0-0.1) 12/06/18 05:04 Add Manual Diff Complete 12/05/18 02:56 Total Counted 100 12/05/18 02:56 Seg Neutrophils % 78.0 % (40.0-70.0) H 12/06/18 05:04 Seg Neuts % (Manual) 78.0 % (40.0-70.0) H 12/05/18 02:56 Band Neutrophils % 7.0 % 12/05/18 02:56 Lymphocytes % (Manual) 8.0 % (13.4-35.0) L 12/05/18 02:56 Reactive Lymphs % (Man) 0 % 12/05/18 02:56 Monocytes % (Manual) 7.0 % (0.0-7.3) 12/05/18 02:56 Eosinophils % (Manual) 0 % (0.0-4.3) 12/05/18 02:56 Basophils % (Manual) 0 % (0.0-1.8) 12/05/18 02:56 Metamyelocytes % 0 % 12/05/18 02:56 Myelocytes % 0 % 12/05/18 02:56 Promyelocytes % 0 % 12/05/18 02:56 Blast Cells % 0 % 12/05/18 02:56 Nucleated RBC % Not Reportable 12/05/18 02:56 Seg Neutrophils # 7.7 K/mm3 (1.8-7.7) 12/06/18 05:04 Seg Neutrophils # Man 6.2 K/mm3 (1.8-7.7) 12/05/18 02:56 Band Neutrophils # 0.6 K/mm3 12/05/18 02:56 Lymphocytes # (Manual) 0.6 K/mm3 (1.2-5.4) L 12/05/18 02:56 Abs React Lymphs (Man) 0.0 K/mm3 12/05/18 02:56 Monocytes # (Manual) 0.6 K/mm3 (0.0-0.8) 12/05/18 02:56 Eosinophils # (Manual) 0.0 K/mm3 (0.0-0.4) 12/05/18 02:56 Basophils # (Manual) 0.0 K/mm3 (0.0-0.1) 12/05/18 02:56 Metamyelocytes # 0.0 K/mm3 12/05/18 02:56 Myelocytes # 0.0 K/mm3 12/05/18 02:56 Promyelocytes # 0.0 K/mm3 12/05/18 02:56 Blast Cells # 0.0 K/mm3 12/05/18 02:56 WBC Morphology Not Reportable 12/05/18 02:56 Hypersegmented Neuts Not Reportable 12/05/18 02:56 Hyposegmented Neuts Not Reportable 12/05/18 02:56 Hypogranular Neuts Not Reportable 12/05/18 02:56 Smudge Cells Not Reportable 12/05/18 02:56 Toxic Granulation Not Reportable 12/05/18 02:56 Toxic Vacuolation Not Reportable 12/05/18 02:56 Dohle Bodies Not Reportable 12/05/18 02:56 Pelger-Huet Anomaly Not Reportable 12/05/18 02:56 Janneth Rods Not Reportable 12/05/18 02:56 Platelet Estimate Appears decreased 12/05/18 02:56 Clumped Platelets Not Reportable 12/05/18 02:56 Plt Clumps, EDTA Not Reportable 12/05/18 02:56 Large Platelets Not Reportable 12/05/18 02:56 Giant Platelets Not Reportable 12/05/18 02:56 Platelet Satelliting Not Reportable 12/05/18 02:56 Plt Morphology Comment Not Reportable 12/05/18 02:56 RBC Morphology Not Reportable 12/05/18 02:56 Dimorphic RBCs Not Reportable 12/05/18 02:56 Polychromasia Not Reportable 12/05/18 02:56 Hypochromasia Not Reportable 12/05/18 02:56 Poikilocytosis Not Reportable 12/05/18 02:56 Anisocytosis Not Reportable 12/05/18 02:56 Microcytosis Not Reportable 12/05/18 02:56 Macrocytosis Not Reportable 12/05/18 02:56 Spherocytes Not Reportable 12/05/18 02:56 Pappenheimer Bodies Not Reportable 12/05/18 02:56 Sickle Cells Not Reportable 12/05/18 02:56 Target Cells Not Reportable 12/05/18 02:56 Tear Drop Cells Not Reportable 12/05/18 02:56 Ovalocytes Not Reportable 12/05/18 02:56 Helmet Cells Not Reportable 12/05/18 02:56 [place] Bodies Not Reportable 12/05/18 02:56 [place] Rings Not Reportable 12/05/18 02:56 [place] Cells Not Reportable 12/05/18 02:56 Bite Cells Not Reportable 12/05/18 02:56 Crenated Cell Not Reportable 12/05/18 02:56 Elliptocytes Not Reportable 12/05/18 02:56 Acanthocytes (Spur) Not Reportable 12/05/18 02:56 Rouleaux Not Reportable 12/05/18 02:56 Hemoglobin C Crystals Not Reportable 12/05/18 02:56 Schistocytes Not Reportable 12/05/18 02:56 Malaria parasites Not Reportable 12/05/18 02:56 Yinka Bodies Not Reportable 12/05/18 02:56 Hem Pathologist Commnt No 12/05/18 02:56 PT 15.0 Sec. (12.2-14.9) H 11/30/18 17:59 INR 1.14 (0.87-1.13) H 11/30/18 17:59 VBG pH 7.353 (7.320-7.420) 11/30/18 17:59 Sodium 139 mmol/L (137-145) D 12/06/18 05:04 Potassium 4.5 mmol/L (3.6-5.0) D 12/06/18 05:04 Chloride 107.2 mmol/L (98-107) H 12/06/18 05:04 Carbon Dioxide 23 mmol/L (22-30) 12/06/18 05:04 Anion Gap 13 mmol/L 12/06/18 05:04 BUN 12 mg/dL (7-17) 12/06/18 05:04 Creatinine 0.4 mg/dL (0.7-1.2) L 12/06/18 05:04 Estimated GFR > 60 ml/min 12/06/18 05:04 BUN/Creatinine Ratio 30 % 12/06/18 05:04 Glucose 174 mg/dL (65-100) H 12/06/18 05:04 POC Glucose 153 (70-105) H 12/06/18 11:52 Lactic Acid 1.40 mmol/L (0.7-2.0) 11/30/18 21:23 Calcium 7.6 mg/dL (8.4-10.2) L 12/06/18 05:04 Total Bilirubin 0.50 mg/dL (0.1-1.2) 11/30/18 17:59 AST 32 units/L (5-40) 11/30/18 17:59 ALT 20 units/L (7-56) 11/30/18 17:59 Alkaline Phosphatase 91 units/L (35-129) 11/30/18 17:59 Total Protein 5.4 g/dL (6.3-8.2) L 11/30/18 17:59 Albumin 3.0 g/dL (3.9-5) L 11/30/18 17:59 Albumin/Globulin Ratio 1.3 % 11/30/18 17:59 Urine Color Yellow (Yellow) 11/30/18 18:11 Urine Turbidity Slightly-cloudy (Clear) 11/30/18 18:11 Urine pH 5.0 (5.0-7.0) 11/30/18 18:11 Ur Specific [place] 1.014 (1.003-1.030) 11/30/18 18:11 Urine Protein 100 mg/dl mg/dL (Negative) 11/30/18 18:11 Urine Glucose (UA) Neg mg/dL (Negative) 11/30/18 18:11 Urine Ketones Neg mg/dL (Negative) 11/30/18 18:11 Urine Blood Lg (Negative) 11/30/18 18:11 Urine Nitrite Neg (Negative) 11/30/18 18:11 Urine Bilirubin Neg (Negative) 11/30/18 18:11 Urine Urobilinogen < 2.0 mg/dL (<2.0) 11/30/18 18:11 Ur Leukocyte Esterase Tr (Negative) 11/30/18 18:11 Urine WBC (Auto) 7.0 /HPF (0.0-6.0) H 11/30/18 18:11 Urine RBC (Auto) > 182.0 /HPF (0.0-6.0) 11/30/18 18:11 Urine Bacteria (Auto) 1+ /HPF (Negative) 11/30/18 18:11 Urine Mucus Few /HPF 11/30/18 18:11 Nutrition/Malnutrition Assess - Dietary Evaluation Nutrition/Malnutrition Findings: Nutrition Notes Start: 12/05/18 16:46 Freq: Status: Active Protocol: Document 12/05/18 16:46 RYAN (Rec: 12/05/18 16:55 RYAN [email or web address]) Nutrition Notes Need for Assessment generated from: Low BMI Initial or Follow up Assessment Current Diagnosis Diabetes Hypertension Stroke Other Pertinent Diagnosis (L) hydronephrosis, (L) sided ureteral calculi, UTI Current Diet Consistent CHO Labs/Tests Na 152 K 2.9 BUN 23 Pertinent Medications D5 + 40mEq KCl at 100ml/hr Height 5 ft 1 in Weight 36.287 kg Usual Body Weight 58.6 kg [place] Body Weight (lbs) 105.0 BMI 15.0 Intake Prior to Admission Fair Weight change and time frame Pt reports 38% unintended wt loss since March 2017 (after CVA ) sec to swallowing difficulty Weight Status Underweight Subjective/Other Information Pt screened for low BMI. She is amenable to ONS. Burn Absent Trauma Absent GI Symptoms None Food Allergy No Current % PO Fair (50-74%) #1 Nutrition Diagnosis Unintended weight loss Etiology swallowing difficulty sec to CVA As Evidenced by Signs and Symptoms pt with 38% wt loss over past 20 months Is patient on ventilator? No Is Patient Ambulatory and/or Out of Bed No REE-([place]-Flakita García-confined to bed) 1002.384 Kcal/Kg value to use for calculation 40 Approximate Energy Requirements Using 1451 kcal/Kg Calculation Used for Recommendations Kcal/kg Additional Notes Pro needs 1.2-1.5g/k-54g/ day Fluid needs 1ml/kcal Malnutrition Assessment Energy Intake (non-severe) <75% Estimated Energy Requirement >7 days Interpretation of weight loss (severe) > 20% in 1 year Body Fat Depletion (non-severe) Mild depletion (non-severe) Muscle Mass Mild Depletion (non-severe) Fluid Accumulation N/A Reduced Stock Holder Strength N/A (non-severe) Protein-Calorie Malnutrition Severe Nutrition Intervention Change Diet Order: Continue current diet order Add Supplement/Snack (indicate name/kcal Glucerna TID (chocolate) /protein ) Provides kCal: 660 Provides Protein (gm) 30 Goal #1 PO intake of meals plus ONS to meet 90-100% energy and pro needs Goal #2 Wt maintenance and/or gain Anticipated Discharge Needs: Continue ONS 1-2 times daily for wt maintenance Follow-Up By: 12/07/18 Additional Comments F/U: intakes (meals/ONS)
[2018-12-07] MEDS: HumuLIN R SUB-Q SCH ×3 (08:39→18:06)
[2018-12-07] MEDS: ROCEPHIN/NS 1 GM/50 ML 1 GM/50 ML BAG IV SCH (11:09)
[2018-12-07] MEDS: COLACE PO SCH (11:09)
[2018-12-07] MEDS: KCL 40 MEQ in D5W 1,000 ML IV SCH ×2 (11:09→23:59)
[2018-12-07] MEDS: SODIUM CHLORIDE FLUSH SYRINGE 10 ML IV SCH (11:40)
--- NOTE | 2018-12-07 14:14 | Discharge Summary ---
Providers - Providers Date of Admission: 11/30/18 21:41 Attending physician: MARLENI CARBAJAL 12/01/18 08:35 Consult to Physician [CONS] Routine Comment: Consulting Provider: MAXIME MARCANO Physician Instructions: already contacted Reason For Exam: left ureteral obstruction with fever 12/02/18 14:12 Physical Therapy Evaluation and Treat [CONS] Routine Comment: Reason For Exam: deconditioning Primary care physician: MEDICAL ONCOLOGY PHYSICIAN Hospitalization Condition: Fair Disposition: DC-30 STILL A PATIENT Exam - Constitutional Vitals: Temp Pulse Resp BP Pulse Ox 98.3 F 97 H 20 161/92 98 12/07/18 02:55 12/07/18 13:58 12/07/18 02:55 12/07/18 02:55 12/07/18 02:56 Plan Follow up with: PEDRO WHITE MD [Primary Care Provider] - 3-5 Days
--- NOTE | 2018-12-07 14:15 | Progress Note ---
Assessment and Plan Assessment and plan: Sepsis. Blood culture reveals Proteus bacteremia intermediate to Zosyn. Therefore, we will change to Rocephin. Left hydronephrosis, hydroureter secondary to left distal ureteral calculi. Urology consult. Patient is status post cystoscopy/RPG/stent Complicated Urinary tract infection. As above. Sepsis associated hypotension. Resolved with IV fluid resuscitation. Thrombocytopenia.? Etiology sepsis versus HIT. Hold Lovenox. Hypernatremia. Resolved Hypokalemia. Replaced Diabetes mellitus type II. Uncontrolled. Continue scheduled Novolin 70/30 at 4 Units bid Continue Accu-Cheks and sliding scale. History of CVA. Supportive care. Deconditioning. PT recommends CHERELLE, awaiting placement. Awaiting placement History Interval history: feels better, Concerned about elevated blood glucose Hospitalist Physical - Physical exam Narrative exam: GEN: Not in acute distress,lying in bed HEENT: Normocephalic, atraumatic, Neck: supple, No JVD Lungs: Clear to auscultation, no wheeze Heart:S1 and S2 regular, no murmurs, rubs or gallop, Abd:soft, non tender, non distended, normal bowel sounds Ext: No edema, no clubbing or cyanosis Neuro: Awake,alert, oriented x 3, No focal signs Psych:Normal mood - Constitutional Vitals: Temp Pulse Resp BP Pulse Ox 98.3 F 97 H 20 161/92 98 12/07/18 02:55 12/07/18 13:58 12/07/18 02:55 12/07/18 02:55 12/07/18 02:56 General appearance: Present: no acute distress Results - Labs CBC & Chem 7: 12/06/18 05:04 12/06/18 05:04 Labs: Laboratory Last Values WBC 9.9 K/mm3 (4.5-11.0) 12/06/18 05:04 RBC 3.12 M/mm3 (3.65-5.03) L 12/06/18 05:04 Hgb 9.9 gm/dl (10.1-14.3) L 12/06/18 05:04 Hct 29.8 % (30.3-42.9) L 12/06/18 05:04 MCV 95 fl (79-97) 12/06/18 05:04 MCH 32 pg (28-32) 12/06/18 05:04 MCHC 33 % (30-34) 12/06/18 05:04 RDW 14.1 % (13.2-15.2) 12/06/18 05:04 Plt Count 67 K/mm3 (140-440) L 12/06/18 05:04 Lymph % (Auto) 12.2 % (13.4-35.0) L 12/06/18 05:04 [place] % (Auto) 7.8 % (0.0-7.3) H 12/06/18 05:04 Eos % (Auto) 1.9 % (0.0-4.3) 12/06/18 05:04 Baso % (Auto) 0.1 % (0.0-1.8) 12/06/18 05:04 Lymph # 1.2 K/mm3 (1.2-5.4) 12/06/18 05:04 [place] # 0.8 K/mm3 (0.0-0.8) 12/06/18 05:04 Eos # 0.2 K/mm3 (0.0-0.4) 12/06/18 05:04 Baso # 0.0 K/mm3 (0.0-0.1) 12/06/18 05:04 Add Manual Diff Complete 12/05/18 02:56 Total Counted 100 12/05/18 02:56 Seg Neutrophils % 78.0 % (40.0-70.0) H 12/06/18 05:04 Seg Neuts % (Manual) 78.0 % (40.0-70.0) H 12/05/18 02:56 Band Neutrophils % 7.0 % 12/05/18 02:56 Lymphocytes % (Manual) 8.0 % (13.4-35.0) L 12/05/18 02:56 Reactive Lymphs % (Man) 0 % 12/05/18 02:56 Monocytes % (Manual) 7.0 % (0.0-7.3) 12/05/18 02:56 Eosinophils % (Manual) 0 % (0.0-4.3) 12/05/18 02:56 Basophils % (Manual) 0 % (0.0-1.8) 12/05/18 02:56 Metamyelocytes % 0 % 12/05/18 02:56 Myelocytes % 0 % 12/05/18 02:56 Promyelocytes % 0 % 12/05/18 02:56 Blast Cells % 0 % 12/05/18 02:56 Nucleated RBC % Not Reportable 12/05/18 02:56 Seg Neutrophils # 7.7 K/mm3 (1.8-7.7) 12/06/18 05:04 Seg Neutrophils # Man 6.2 K/mm3 (1.8-7.7) 12/05/18 02:56 Band Neutrophils # 0.6 K/mm3 12/05/18 02:56 Lymphocytes # (Manual) 0.6 K/mm3 (1.2-5.4) L 12/05/18 02:56 Abs React Lymphs (Man) 0.0 K/mm3 12/05/18 02:56 Monocytes # (Manual) 0.6 K/mm3 (0.0-0.8) 12/05/18 02:56 Eosinophils # (Manual) 0.0 K/mm3 (0.0-0.4) 12/05/18 02:56 Basophils # (Manual) 0.0 K/mm3 (0.0-0.1) 12/05/18 02:56 Metamyelocytes # 0.0 K/mm3 12/05/18 02:56 Myelocytes # 0.0 K/mm3 12/05/18 02:56 Promyelocytes # 0.0 K/mm3 12/05/18 02:56 Blast Cells # 0.0 K/mm3 12/05/18 02:56 WBC Morphology Not Reportable 12/05/18 02:56 Hypersegmented Neuts Not Reportable 12/05/18 02:56 Hyposegmented Neuts Not Reportable 12/05/18 02:56 Hypogranular Neuts Not Reportable 12/05/18 02:56 Smudge Cells Not Reportable 12/05/18 02:56 Toxic Granulation Not Reportable 12/05/18 02:56 Toxic Vacuolation Not Reportable 12/05/18 02:56 Dohle Bodies Not Reportable 12/05/18 02:56 Pelger-Huet Anomaly Not Reportable 12/05/18 02:56 Janneth Rods Not Reportable 12/05/18 02:56 Platelet Estimate Appears decreased 12/05/18 02:56 Clumped Platelets Not Reportable 12/05/18 02:56 Plt Clumps, EDTA Not Reportable 12/05/18 02:56 Large Platelets Not Reportable 12/05/18 02:56 Giant Platelets Not Reportable 12/05/18 02:56 Platelet Satelliting Not Reportable 12/05/18 02:56 Plt Morphology Comment Not Reportable 12/05/18 02:56 RBC Morphology Not Reportable 12/05/18 02:56 Dimorphic RBCs Not Reportable 12/05/18 02:56 Polychromasia Not Reportable 12/05/18 02:56 Hypochromasia Not Reportable 12/05/18 02:56 Poikilocytosis Not Reportable 12/05/18 02:56 Anisocytosis Not Reportable 12/05/18 02:56 Microcytosis Not Reportable 12/05/18 02:56 Macrocytosis Not Reportable 12/05/18 02:56 Spherocytes Not Reportable 12/05/18 02:56 Pappenheimer Bodies Not Reportable 12/05/18 02:56 Sickle Cells Not Reportable 12/05/18 02:56 Target Cells Not Reportable 12/05/18 02:56 Tear Drop Cells Not Reportable 12/05/18 02:56 Ovalocytes Not Reportable 12/05/18 02:56 Helmet Cells Not Reportable 12/05/18 02:56 [place] Bodies Not Reportable 12/05/18 02:56 [place] Rings Not Reportable 12/05/18 02:56 [place] Cells Not Reportable 12/05/18 02:56 Bite Cells Not Reportable 12/05/18 02:56 Crenated Cell Not Reportable 12/05/18 02:56 Elliptocytes Not Reportable 12/05/18 02:56 Acanthocytes (Spur) Not Reportable 12/05/18 02:56 Rouleaux Not Reportable 12/05/18 02:56 Hemoglobin C Crystals Not Reportable 12/05/18 02:56 Schistocytes Not Reportable 12/05/18 02:56 Malaria parasites Not Reportable 12/05/18 02:56 Yink[place] Bodies Not Reportable 12/05/18 02:56 Hem Pathologist Commnt No 12/05/18 02:56 PT 15.0 Sec. (12.2-14.9) H 11/30/18 17:59 INR 1.14 (0.87-1.13) H 11/30/18 17:59 VBG pH 7.353 (7.320-7.420) 11/30/18 17:59 Sodium 139 mmol/L (137-145) D 12/06/18 05:04 Potassium 4.5 mmol/L (3.6-5.0) D 12/06/18 05:04 Chloride 107.2 mmol/L (98-107) H 12/06/18 05:04 Carbon Dioxide 23 mmol/L (22-30) 12/06/18 05:04 Anion Gap 13 mmol/L 12/06/18 05:04 BUN 12 mg/dL (7-17) 12/06/18 05:04 Creatinine 0.4 mg/dL (0.7-1.2) L 12/06/18 05:04 Estimated GFR > 60 ml/min 12/06/18 05:04 BUN/Creatinine Ratio 30 % 12/06/18 05:04 Glucose 174 mg/dL (65-100) H 12/06/18 05:04 POC Glucose 123 (70-105) H 12/07/18 11:25 Hemoglobin A1c 7.4 % (4-6) H 12/07/18 05:30 Lactic Acid 1.40 mmol/L (0.7-2.0) 11/30/18 21:23 Calcium 7.6 mg/dL (8.4-10.2) L 12/06/18 05:04 Total Bilirubin 0.50 mg/dL (0.1-1.2) 11/30/18 17:59 AST 32 units/L (5-40) 11/30/18 17:59 ALT 20 units/L (7-56) 11/30/18 17:59 Alkaline Phosphatase 91 units/L (35-129) 11/30/18 17:59 Total Protein 5.4 g/dL (6.3-8.2) L 11/30/18 17:59 Albumin 3.0 g/dL (3.9-5) L 11/30/18 17:59 Albumin/Globulin Ratio 1.3 % 11/30/18 17:59 Urine Color Yellow (Yellow) 11/30/18 18:11 Urine Turbidity Slightly-cloudy (Clear) 11/30/18 18:11 Urine pH 5.0 (5.0-7.0) 11/30/18 18:11 Ur Specific [place] 1.014 (1.003-1.030) 11/30/18 18:11 Urine Protein 100 mg/dl mg/dL (Negative) 11/30/18 18:11 Urine Glucose (UA) Neg mg/dL (Negative) 11/30/18 18:11 Urine Ketones Neg mg/dL (Negative) 11/30/18 18:11 Urine Blood Lg (Negative) 11/30/18 18:11 Urine Nitrite Neg (Negative) 11/30/18 18:11 Urine Bilirubin Neg (Negative) 11/30/18 18:11 Urine Urobilinogen < 2.0 mg/dL (<2.0) 11/30/18 18:11 Ur Leukocyte Esterase Tr (Negative) 11/30/18 18:11 Urine WBC (Auto) 7.0 /HPF (0.0-6.0) H 11/30/18 18:11 Urine RBC (Auto) > 182.0 /HPF (0.0-6.0) 11/30/18 18:11 Urine Bacteria (Auto) 1+ /HPF (Negative) 11/30/18 18:11 Urine Mucus Few /HPF 11/30/18 18:11 Nutrition/Malnutrition Assess - Dietary Evaluation Nutrition/Malnutrition Findings: Nutrition Notes Start: 12/05/18 16:46 Freq: Status: Active Protocol: Document 12/07/18 12:00 RYAN (Rec: 12/07/18 12:03 RYAN [email or web address]- [email or web address]) Nutrition Notes Initial or Follow up Brief Note Current Diet Consistent CHO + Glucerna TID Labs/Tests A1c 7.4 Subjective/Other Information Pt has consumed 58% of meals since last assessment; she reports "pretty good" appetite . Says she is trying to drink ONS (observed 2 unopened cartons and one opened). She is awaiting placement. Percent of energy/protein needs met: 100% energy and pro Nutrition Intervention Follow-Up By: 12/13/18 Additional Comments F/U: intakes (meals/ONS), wt
[2018-12-08] MEDS: HumuLIN R SUB-Q SCH ×5 (00:06→22:55)
[2018-12-08] MEDS: SODIUM CHLORIDE FLUSH SYRINGE 10 ML IV SCH ×3 (00:08→22:03)
[2018-12-08] MEDS: COLACE PO SCH ×3 (07:57→22:03)
[2018-12-08] MEDS: ROCEPHIN/NS 1 GM/50 ML 1 GM/50 ML BAG IV SCH (09:14)
--- NOTE | 2018-12-08 11:23 | Progress Note ---
Assessment and Plan Assessment and plan: Sepsis. Blood culture reveals Proteus bacteremia intermediate to Zosyn. Therefore, we will change to Rocephin. Left hydronephrosis, hydroureter secondary to left distal ureteral calculi. Urology consult. Patient is status post cystoscopy/RPG/stent Complicated Urinary tract infection. As above. Sepsis with proteus mirabilis associated hypotension. Resolved with IV fluid resuscitation. Thrombocytopenia.? Etiology sepsis versus HIT. Hold Lovenox. Hypernatremia. Resolved Hypokalemia. Replaced Diabetes mellitus type II. Uncontrolled. Continue scheduled Novolin 70/30 at 4 Units bid Continue Accu-Cheks and sliding scale. History of CVA. Supportive care. Deconditioning. PT recommends CHERELLE, awaiting placement. Awaiting placement History Interval history: feels better, Awaiting placement Hospitalist Physical - Physical exam Narrative exam: GEN: Not in acute distress,lying in bed HEENT: Normocephalic, atraumatic, Neck: supple, No JVD Lungs: Clear to auscultation, no wheeze Heart:S1 and S2 regular, no murmurs, rubs or gallop, Abd:soft, non tender, non distended, normal bowel sounds Ext: No edema, no clubbing or cyanosis Neuro: Awake,alert, oriented x 3, No focal signs Psych:Normal mood - Constitutional Vitals: Temp Pulse Resp BP Pulse Ox 98.6 F 84 16 141/77 99 12/08/18 07:23 12/08/18 10:00 12/08/18 07:23 12/08/18 07:23 12/08/18 10:00 General appearance: Present: no acute distress Results - Labs CBC & Chem 7: 12/06/18 05:04 12/06/18 05:04 Labs: Laboratory Last Values WBC 9.9 K/mm3 (4.5-11.0) 12/06/18 05:04 RBC 3.12 M/mm3 (3.65-5.03) L 12/06/18 05:04 Hgb 9.9 gm/dl (10.1-14.3) L 12/06/18 05:04 Hct 29.8 % (30.3-42.9) L 12/06/18 05:04 MCV 95 fl (79-97) 12/06/18 05:04 MCH 32 pg (28-32) 12/06/18 05:04 MCHC 33 % (30-34) 12/06/18 05:04 RDW 14.1 % (13.2-15.2) 12/06/18 05:04 Plt Count 67 K/mm3 (140-440) L 12/06/18 05:04 Lymph % (Auto) 12.2 % (13.4-35.0) L 12/06/18 05:04 [place] % (Auto) 7.8 % (0.0-7.3) H 12/06/18 05:04 Eos % (Auto) 1.9 % (0.0-4.3) 12/06/18 05:04 Baso % (Auto) 0.1 % (0.0-1.8) 12/06/18 05:04 Lymph # 1.2 K/mm3 (1.2-5.4) 12/06/18 05:04 [place] # 0.8 K/mm3 (0.0-0.8) 12/06/18 05:04 Eos # 0.2 K/mm3 (0.0-0.4) 12/06/18 05:04 Baso # 0.0 K/mm3 (0.0-0.1) 12/06/18 05:04 Add Manual Diff Complete 12/05/18 02:56 Total Counted 100 12/05/18 02:56 Seg Neutrophils % 78.0 % (40.0-70.0) H 12/06/18 05:04 Seg Neuts % (Manual) 78.0 % (40.0-70.0) H 12/05/18 02:56 Band Neutrophils % 7.0 % 12/05/18 02:56 Lymphocytes % (Manual) 8.0 % (13.4-35.0) L 12/05/18 02:56 Reactive Lymphs % (Man) 0 % 12/05/18 02:56 Monocytes % (Manual) 7.0 % (0.0-7.3) 12/05/18 02:56 Eosinophils % (Manual) 0 % (0.0-4.3) 12/05/18 02:56 Basophils % (Manual) 0 % (0.0-1.8) 12/05/18 02:56 Metamyelocytes % 0 % 12/05/18 02:56 Myelocytes % 0 % 12/05/18 02:56 Promyelocytes % 0 % 12/05/18 02:56 Blast Cells % 0 % 12/05/18 02:56 Nucleated RBC % Not Reportable 12/05/18 02:56 Seg Neutrophils # 7.7 K/mm3 (1.8-7.7) 12/06/18 05:04 Seg Neutrophils # Man 6.2 K/mm3 (1.8-7.7) 12/05/18 02:56 Band Neutrophils # 0.6 K/mm3 12/05/18 02:56 Lymphocytes # (Manual) 0.6 K/mm3 (1.2-5.4) L 12/05/18 02:56 Abs React Lymphs (Man) 0.0 K/mm3 12/05/18 02:56 Monocytes # (Manual) 0.6 K/mm3 (0.0-0.8) 12/05/18 02:56 Eosinophils # (Manual) 0.0 K/mm3 (0.0-0.4) 12/05/18 02:56 Basophils # (Manual) 0.0 K/mm3 (0.0-0.1) 12/05/18 02:56 Metamyelocytes # 0.0 K/mm3 12/05/18 02:56 Myelocytes # 0.0 K/mm3 12/05/18 02:56 Promyelocytes # 0.0 K/mm3 12/05/18 02:56 Blast Cells # 0.0 K/mm3 12/05/18 02:56 WBC Morphology Not Reportable 12/05/18 02:56 Hypersegmented Neuts Not Reportable 12/05/18 02:56 Hyposegmented Neuts Not Reportable 12/05/18 02:56 Hypogranular Neuts Not Reportable 12/05/18 02:56 Smudge Cells Not Reportable 12/05/18 02:56 Toxic Granulation Not Reportable 12/05/18 02:56 Toxic Vacuolation Not Reportable 12/05/18 02:56 Dohle Bodies Not Reportable 12/05/18 02:56 Pelger-Huet Anomaly Not Reportable 12/05/18 02:56 Janneth Rods Not Reportable 12/05/18 02:56 Platelet Estimate Appears decreased 12/05/18 02:56 Clumped Platelets Not Reportable 12/05/18 02:56 Plt Clumps, EDTA Not Reportable 12/05/18 02:56 Large Platelets Not Reportable 12/05/18 02:56 Giant Platelets Not Reportable 12/05/18 02:56 Platelet Satelliting Not Reportable 12/05/18 02:56 Plt Morphology Comment Not Reportable 12/05/18 02:56 RBC Morphology Not Reportable 12/05/18 02:56 Dimorphic RBCs Not Reportable 12/05/18 02:56 Polychromasia Not Reportable 12/05/18 02:56 Hypochromasia Not Reportable 12/05/18 02:56 Poikilocytosis Not Reportable 12/05/18 02:56 Anisocytosis Not Reportable 12/05/18 02:56 Microcytosis Not Reportable 12/05/18 02:56 Macrocytosis Not Reportable 12/05/18 02:56 Spherocytes Not Reportable 12/05/18 02:56 Pappenheimer Bodies Not Reportable 12/05/18 02:56 Sickle Cells Not Reportable 12/05/18 02:56 Target Cells Not Reportable 12/05/18 02:56 Tear Drop Cells Not Reportable 12/05/18 02:56 Ovalocytes Not Reportable 12/05/18 02:56 Helmet Cells Not Reportable 12/05/18 02:56 [place] Bodies Not Reportable 12/05/18 02:56 [place] Rings Not Reportable 12/05/18 02:56 [place] Cells Not Reportable 12/05/18 02:56 Bite Cells Not Reportable 12/05/18 02:56 Crenated Cell Not Reportable 12/05/18 02:56 Elliptocytes Not Reportable 12/05/18 02:56 Acanthocytes (Spur) Not Reportable 12/05/18 02:56 Rouleaux Not Reportable 12/05/18 02:56 Hemoglobin C Crystals Not Reportable 12/05/18 02:56 Schistocytes Not Reportable 12/05/18 02:56 Malaria parasites Not Reportable 12/05/18 02:56 Yinka Bodies Not Reportable 12/05/18 02:56 Hem Pathologist Commnt No 12/05/18 02:56 PT 15.0 Sec. (12.2-14.9) H 11/30/18 17:59 INR 1.14 (0.87-1.13) H 11/30/18 17:59 VBG pH 7.353 (7.320-7.420) 11/30/18 17:59 Sodium 139 mmol/L (137-145) D 12/06/18 05:04 Potassium 4.5 mmol/L (3.6-5.0) D 12/06/18 05:04 Chloride 107.2 mmol/L (98-107) H 12/06/18 05:04 Carbon Dioxide 23 mmol/L (22-30) 12/06/18 05:04 Anion Gap 13 mmol/L 12/06/18 05:04 BUN 12 mg/dL (7-17) 12/06/18 05:04 Creatinine 0.4 mg/dL (0.7-1.2) L 12/06/18 05:04 Estimated GFR > 60 ml/min 12/06/18 05:04 BUN/Creatinine Ratio 30 % 12/06/18 05:04 Glucose 174 mg/dL (65-100) H 12/06/18 05:04 POC Glucose 116 (70-105) H 12/08/18 07:25 Hemoglobin A1c 7.4 % (4-6) H 12/07/18 05:30 Lactic Acid 1.40 mmol/L (0.7-2.0) 11/30/18 21:23 Calcium 7.6 mg/dL (8.4-10.2) L 12/06/18 05:04 Total Bilirubin 0.50 mg/dL (0.1-1.2) 11/30/18 17:59 AST 32 units/L (5-40) 11/30/18 17:59 ALT 20 units/L (7-56) 11/30/18 17:59 Alkaline Phosphatase 91 units/L (35-129) 11/30/18 17:59 Total Protein 5.4 g/dL (6.3-8.2) L 11/30/18 17:59 Albumin 3.0 g/dL (3.9-5) L 11/30/18 17:59 Albumin/Globulin Ratio 1.3 % 11/30/18 17:59 Urine Color Yellow (Yellow) 11/30/18 18:11 Urine Turbidity Slightly-cloudy (Clear) 11/30/18 18:11 Urine pH 5.0 (5.0-7.0) 11/30/18 18:11 Ur Specific [place] 1.014 (1.003-1.030) 11/30/18 18:11 Urine Protein 100 mg/dl mg/dL (Negative) 11/30/18 18:11 Urine Glucose (UA) Neg mg/dL (Negative) 11/30/18 18:11 Urine Ketones Neg mg/dL (Negative) 11/30/18 18:11 Urine Blood Lg (Negative) 11/30/18 18:11 Urine Nitrite Neg (Negative) 11/30/18 18:11 Urine Bilirubin Neg (Negative) 11/30/18 18:11 Urine Urobilinogen < 2.0 mg/dL (<2.0) 11/30/18 18:11 Ur Leukocyte Esterase Tr (Negative) 11/30/18 18:11 Urine WBC (Auto) 7.0 /HPF (0.0-6.0) H 11/30/18 18:11 Urine RBC (Auto) > 182.0 /HPF (0.0-6.0) 11/30/18 18:11 Urine Bacteria (Auto) 1+ /HPF (Negative) 11/30/18 18:11 Urine Mucus Few /HPF 11/30/18 18:11 Nutrition/Malnutrition Assess - Dietary Evaluation Nutrition/Malnutrition Findings: Nutrition Notes Start: 12/05/18 16:46 Freq: Status: Active Protocol: Document 12/07/18 12:00 RYAN (Rec: 12/07/18 12:03 [facility] SRW- [email or web address]) Nutrition Notes Initial or Follow up Brief Note Current Diet Consistent CHO + Glucerna TID Labs/Tests A1c 7.4 Subjective/Other Information Pt has consumed 58% of meals since last assessment; she reports "pretty good" appetite . Says she is trying to drink ONS (observed 2 unopened cartons and one opened). She is awaiting placement. Percent of energy/protein needs met: 100% energy and pro Nutrition Intervention Follow-Up By: 12/13/18 Additional Comments F/U: intakes (meals/ONS), wt
[2018-12-08] MEDS: KCL 40 MEQ in D5W 1,000 ML IV SCH (11:27)
[2018-12-09] MEDS: KCL 40 MEQ in D5W 1,000 ML IV SCH (03:42)
[2018-12-09] MEDS: HumuLIN R SUB-Q SCH ×4 (07:03→21:50)
[2018-12-09] MEDS: SODIUM CHLORIDE FLUSH SYRINGE 10 ML IV SCH ×3 (08:59→21:51)
[2018-12-09] MEDS: COLACE PO SCH ×2 (08:59→21:49)
[2018-12-09] MEDS: ROCEPHIN/NS 1 GM/50 ML 1 GM/50 ML BAG IV SCH (10:15)
[2018-12-09 12:16] LABS: BUN/Creatinine Ratio 17; Blood Urea Nitrogen 12 mg/dL (7-17); Calcium 8.4 mg/dL (8.4-10.2); Hemolysis Index 5
--- NOTE | 2018-12-09 12:30 | Progress Note ---
Assessment and Plan Assessment and plan: Sepsis. Blood culture reveals Proteus bacteremia intermediate to Zosyn. Therefore, we will change to Rocephin. Left hydronephrosis, hydroureter secondary to left distal ureteral calculi. Urology consult. Patient is status post cystoscopy/RPG/stent Complicated Urinary tract infection. As above. Sepsis with proteus mirabilis associated hypotension. Resolved with IV fluid resuscitation. Thrombocytopenia.? Etiology sepsis versus HIT. Hold Lovenox. Hypernatremia. Resolved Hypokalemia. Replaced Diabetes mellitus type II. Uncontrolled. Continue scheduled Novolin 70/30 at 4 Units bid Continue Accu-Cheks and sliding scale. History of CVA. Supportive care. Hyperkalemia. Give Kayexalate, recheck in am Deconditioning. PT recommends CHERELLE, awaiting placement. Awaiting placement History Interval history: feels better, Awaiting placement Hospitalist Physical - Physical exam Narrative exam: GEN: Not in acute distress,lying in bed,malnourished HEENT: Normocephalic, atraumatic, Neck: supple, No JVD Lungs: Clear to auscultation, no wheeze Heart:S1 and S2 regular, no murmurs, rubs or gallop, Abd:soft, non tender, non distended, normal bowel sounds Ext: No edema, no clubbing or cyanosis Neuro: Awake,alert, oriented x 3, No focal signs Psych:Normal mood - Constitutional Vitals: Temp Pulse Resp BP Pulse Ox 98.5 F 93 H 16 129/71 98 12/09/18 07:16 12/09/18 10:00 12/09/18 10:00 12/09/18 07:16 12/09/18 10:00 General appearance: Present: no acute distress Results - Labs CBC & Chem 7: 12/06/18 05:04 12/09/18 11:34 Labs: Laboratory Last Values WBC 9.9 K/mm3 (4.5-11.0) 12/06/18 05:04 RBC 3.12 M/mm3 (3.65-5.03) L 12/06/18 05:04 Hgb 9.9 gm/dl (10.1-14.3) L 12/06/18 05:04 Hct 29.8 % (30.3-42.9) L 12/06/18 05:04 MCV 95 fl (79-97) 12/06/18 05:04 MCH 32 pg (28-32) 12/06/18 05:04 MCHC 33 % (30-34) 12/06/18 05:04 RDW 14.1 % (13.2-15.2) 12/06/18 05:04 Plt Count 67 K/mm3 (140-440) L 12/06/18 05:04 Lymph % (Auto) 12.2 % (13.4-35.0) L 12/06/18 05:04 [place] % (Auto) 7.8 % (0.0-7.3) H 12/06/18 05:04 Eos % (Auto) 1.9 % (0.0-4.3) 12/06/18 05:04 Baso % (Auto) 0.1 % (0.0-1.8) 12/06/18 05:04 Lymph # 1.2 K/mm3 (1.2-5.4) 12/06/18 05:04 [place] # 0.8 K/mm3 (0.0-0.8) 12/06/18 05:04 Eos # 0.2 K/mm3 (0.0-0.4) 12/06/18 05:04 Baso # 0.0 K/mm3 (0.0-0.1) 12/06/18 05:04 Add Manual Diff Complete 12/05/18 02:56 Total Counted 100 12/05/18 02:56 Seg Neutrophils % 78.0 % (40.0-70.0) H 12/06/18 05:04 Seg Neuts % (Manual) 78.0 % (40.0-70.0) H 12/05/18 02:56 Band Neutrophils % 7.0 % 12/05/18 02:56 Lymphocytes % (Manual) 8.0 % (13.4-35.0) L 12/05/18 02:56 Reactive Lymphs % (Man) 0 % 12/05/18 02:56 Monocytes % (Manual) 7.0 % (0.0-7.3) 12/05/18 02:56 Eosinophils % (Manual) 0 % (0.0-4.3) 12/05/18 02:56 Basophils % (Manual) 0 % (0.0-1.8) 12/05/18 02:56 Metamyelocytes % 0 % 12/05/18 02:56 Myelocytes % 0 % 12/05/18 02:56 Promyelocytes % 0 % 12/05/18 02:56 Blast Cells % 0 % 12/05/18 02:56 Nucleated RBC % Not Reportable 12/05/18 02:56 Seg Neutrophils # 7.7 K/mm3 (1.8-7.7) 12/06/18 05:04 Seg Neutrophils # Man 6.2 K/mm3 (1.8-7.7) 12/05/18 02:56 Band Neutrophils # 0.6 K/mm3 12/05/18 02:56 Lymphocytes # (Manual) 0.6 K/mm3 (1.2-5.4) L 12/05/18 02:56 Abs React Lymphs (Man) 0.0 K/mm3 12/05/18 02:56 Monocytes # (Manual) 0.6 K/mm3 (0.0-0.8) 12/05/18 02:56 Eosinophils # (Manual) 0.0 K/mm3 (0.0-0.4) 12/05/18 02:56 Basophils # (Manual) 0.0 K/mm3 (0.0-0.1) 12/05/18 02:56 Metamyelocytes # 0.0 K/mm3 12/05/18 02:56 Myelocytes # 0.0 K/mm3 12/05/18 02:56 Promyelocytes # 0.0 K/mm3 12/05/18 02:56 Blast Cells # 0.0 K/mm3 12/05/18 02:56 WBC Morphology Not Reportable 12/05/18 02:56 Hypersegmented Neuts Not Reportable 12/05/18 02:56 Hyposegmented Neuts Not Reportable 12/05/18 02:56 Hypogranular Neuts Not Reportable 12/05/18 02:56 Smudge Cells Not Reportable 12/05/18 02:56 Toxic Granulation Not Reportable 12/05/18 02:56 Toxic Vacuolation Not Reportable 12/05/18 02:56 Dohle Bodies Not Reportable 12/05/18 02:56 Pelger-Huet Anomaly Not Reportable 12/05/18 02:56 Janneth Rods Not Reportable 12/05/18 02:56 Platelet Estimate Appears decreased 12/05/18 02:56 Clumped Platelets Not Reportable 12/05/18 02:56 Plt Clumps, EDTA Not Reportable 12/05/18 02:56 Large Platelets Not Reportable 12/05/18 02:56 Giant Platelets Not Reportable 12/05/18 02:56 Platelet Satelliting Not Reportable 12/05/18 02:56 Plt Morphology Comment Not Reportable 12/05/18 02:56 RBC Morphology Not Reportable 12/05/18 02:56 Dimorphic RBCs Not Reportable 12/05/18 02:56 Polychromasia Not Reportable 12/05/18 02:56 Hypochromasia Not Reportable 12/05/18 02:56 Poikilocytosis Not Reportable 12/05/18 02:56 Anisocytosis Not Reportable 12/05/18 02:56 Microcytosis Not Reportable 12/05/18 02:56 Macrocytosis Not Reportable 12/05/18 02:56 Spherocytes Not Reportable 12/05/18 02:56 Pappenheimer Bodies Not Reportable 12/05/18 02:56 Sickle Cells Not Reportable 12/05/18 02:56 Target Cells Not Reportable 12/05/18 02:56 Tear Drop Cells Not Reportable 12/05/18 02:56 Ovalocytes Not Reportable 12/05/18 02:56 Helmet Cells Not Reportable 12/05/18 02:56 [place] Bodies Not Reportable 12/05/18 02:56 [place] Rings Not Reportable 12/05/18 02:56 Karissa Cells Not Reportable 12/05/18 02:56 Bite Cells Not Reportable 12/05/18 02:56 Crenated Cell Not Reportable 12/05/18 02:56 Elliptocytes Not Reportable 12/05/18 02:56 Acanthocytes (Spur) Not Reportable 12/05/18 02:56 Rouleaux Not Reportable 12/05/18 02:56 Hemoglobin C Crystals Not Reportable 12/05/18 02:56 Schistocytes Not Reportable 12/05/18 02:56 Malaria parasites Not Reportable 12/05/18 02:56 [place]ink[place] Bodies Not Reportable 12/05/18 02:56 Hem Pathologist Commnt No 12/05/18 02:56 PT 15.0 Sec. (12.2-14.9) H 11/30/18 17:59 INR 1.14 (0.87-1.13) H 11/30/18 17:59 VBG pH 7.353 (7.320-7.420) 11/30/18 17:59 Sodium 138 mmol/L (137-145) 12/09/18 11:34 Potassium 5.5 mmol/L (3.6-5.0) H D 12/09/18 11:34 Chloride 104.0 mmol/L (98-107) 12/09/18 11:34 Carbon Dioxide 26 mmol/L (22-30) 12/09/18 11:34 Anion Gap 14 mmol/L 12/09/18 11:34 BUN 12 mg/dL (7-17) 12/09/18 11:34 Creatinine 0.7 mg/dL (0.7-1.2) D 12/09/18 11:34 Estimated GFR > 60 ml/min 12/09/18 11:34 BUN/Creatinine Ratio 17 % 12/09/18 11:34 Glucose 125 mg/dL (65-100) H 12/09/18 11:34 POC Glucose 158 (70-105) H 12/09/18 11:04 Hemoglobin A1c 7.4 % (4-6) H 12/07/18 05:30 Lactic Acid 1.40 mmol/L (0.7-2.0) 11/30/18 21:23 Calcium 8.4 mg/dL (8.4-10.2) 12/09/18 11:34 Total Bilirubin 0.50 mg/dL (0.1-1.2) 11/30/18 17:59 AST 32 units/L (5-40) 11/30/18 17:59 ALT 20 units/L (7-56) 11/30/18 17:59 Alkaline Phosphatase 91 units/L (35-129) 11/30/18 17:59 Total Protein 5.4 g/dL (6.3-8.2) L 11/30/18 17:59 Albumin 3.0 g/dL (3.9-5) L 11/30/18 17:59 Albumin/Globulin Ratio 1.3 % 11/30/18 17:59 Urine Color Yellow (Yellow) 11/30/18 18:11 Urine Turbidity Slightly-cloudy (Clear) 11/30/18 18:11 Urine pH 5.0 (5.0-7.0) 11/30/18 18:11 Ur Specific [place] 1.014 (1.003-1.030) 11/30/18 18:11 Urine Protein 100 mg/dl mg/dL (Negative) 11/30/18 18:11 Urine Glucose (UA) Neg mg/dL (Negative) 11/30/18 18:11 Urine Ketones Neg mg/dL (Negative) 11/30/18 18:11 Urine Blood Lg (Negative) 11/30/18 18:11 Urine Nitrite Neg (Negative) 11/30/18 18:11 Urine Bilirubin Neg (Negative) 11/30/18 18:11 Urine Urobilinogen < 2.0 mg/dL (<2.0) 11/30/18 18:11 Ur Leukocyte Esterase Tr (Negative) 11/30/18 18:11 Urine WBC (Auto) 7.0 /HPF (0.0-6.0) H 11/30/18 18:11 Urine RBC (Auto) > 182.0 /HPF (0.0-6.0) 11/30/18 18:11 Urine Bacteria (Auto) 1+ /HPF (Negative) 11/30/18 18:11 Urine Mucus Few /HPF 11/30/18 18:11 Nutrition/Malnutrition Assess - Dietary Evaluation Nutrition/Malnutrition Findings: Nutrition Notes Start: 12/05/18 16:46 Freq: Status: Active Protocol: Document 12/07/18 12:00 RYAN (Rec: 12/07/18 12:03 RYAN SRW- [email or web address]) Nutrition Notes Initial or Follow up Brief Note Current Diet Consistent CHO + Glucerna TID Labs/Tests A1c 7.4 Subjective/Other Information Pt has consumed 58% of meals since last assessment; she reports "pretty good" appetite . Says she is trying to drink ONS (observed 2 unopened cartons and one opened). She is awaiting placement. Percent of energy/protein needs met: 100% energy and pro Nutrition Intervention Follow-Up By: 12/13/18 Additional Comments F/U: intakes (meals/ONS), wt
[2018-12-09] MEDS ORDERED: KIONEX PO ONE (13:25)
[2018-12-09 16:50] LABS: Heparin-Induced Platelet Antib Negative (Negative); Unfractionated Heparin Negative (Negative)
[2018-12-10 06:15] LABS: BUN/Creatinine Ratio 30; Blood Urea Nitrogen 15 mg/dL (7-17); Calcium 7.9 mg/dL (8.4-10.2); Hemolysis Index 12
[2018-12-10] MEDS: HumuLIN R SUB-Q SCH ×3 (07:30→17:00)
--- NOTE | 2018-12-10 09:17 | Progress Note ---
Assessment and Plan Assessment and plan: Sepsis. Blood culture reveals Proteus bacteremia Left hydronephrosis, hydroureter secondary to left distal ureteral calculi. Urology consulted. Patient is status post cystoscopy/RPG/stent Complicated Urinary tract infection. As above. Sepsis with proteus mirabilis associated hypotension. Resolved with IV fluid resuscitation. Thrombocytopenia.? Etiology sepsis versus HIT. Hold Lovenox. Hypernatremia. Resolved Hypokalemia. Replaced Diabetes mellitus type II. Uncontrolled. Continue scheduled Novolin 70/30 at 4 Units bid Continue Accu-Cheks and sliding scale. History of CVA. Supportive care. Hyperkalemia. Now resolved after Kayexalate, Deconditioning. PT recommends CHERELLE, awaiting placement. Awaiting placement History Interval history: feels better, No new complaints Awaiting placement Hospitalist Physical - Physical exam Narrative exam: GEN: Not in acute distress,lying in bed,malnourished HEENT: Normocephalic, atraumatic, Neck: supple, No JVD Lungs: Clear to auscultation, no wheeze Heart:S1 and S2 regular, no murmurs, rubs or gallop, Abd:soft, non tender, non distended, normal bowel sounds Ext: No edema, no clubbing or cyanosis Neuro: Awake,alert, oriented x 3, No focal signs Psych:Normal mood - Constitutional Vitals: Temp Pulse Resp BP Pulse Ox 98.4 F 87 20 133/72 97 12/10/18 07:51 12/10/18 07:51 12/10/18 07:51 12/10/18 07:51 12/10/18 07:51 General appearance: Present: no acute distress Results - Labs CBC & Chem 7: 12/06/18 05:04 12/10/18 05:30 Labs: Laboratory Last Values WBC 9.9 K/mm3 (4.5-11.0) 12/06/18 05:04 RBC 3.12 M/mm3 (3.65-5.03) L 12/06/18 05:04 Hgb 9.9 gm/dl (10.1-14.3) L 12/06/18 05:04 Hct 29.8 % (30.3-42.9) L 12/06/18 05:04 MCV 95 fl (79-97) 12/06/18 05:04 MCH 32 pg (28-32) 12/06/18 05:04 MCHC 33 % (30-34) 12/06/18 05:04 RDW 14.1 % (13.2-15.2) 12/06/18 05:04 Plt Count 67 K/mm3 (140-440) L 12/06/18 05:04 Lymph % (Auto) 12.2 % (13.4-35.0) L 12/06/18 05:04 [place] % (Auto) 7.8 % (0.0-7.3) H 12/06/18 05:04 Eos % (Auto) 1.9 % (0.0-4.3) 12/06/18 05:04 Baso % (Auto) 0.1 % (0.0-1.8) 12/06/18 05:04 Lymph # 1.2 K/mm3 (1.2-5.4) 12/06/18 05:04 [place] # 0.8 K/mm3 (0.0-0.8) 12/06/18 05:04 Eos # 0.2 K/mm3 (0.0-0.4) 12/06/18 05:04 Baso # 0.0 K/mm3 (0.0-0.1) 12/06/18 05:04 Add Manual Diff Complete 12/05/18 02:56 Total Counted 100 12/05/18 02:56 Seg Neutrophils % 78.0 % (40.0-70.0) H 12/06/18 05:04 Seg Neuts % (Manual) 78.0 % (40.0-70.0) H 12/05/18 02:56 Band Neutrophils % 7.0 % 12/05/18 02:56 Lymphocytes % (Manual) 8.0 % (13.4-35.0) L 12/05/18 02:56 Reactive Lymphs % (Man) 0 % 12/05/18 02:56 Monocytes % (Manual) 7.0 % (0.0-7.3) 12/05/18 02:56 Eosinophils % (Manual) 0 % (0.0-4.3) 12/05/18 02:56 Basophils % (Manual) 0 % (0.0-1.8) 12/05/18 02:56 Metamyelocytes % 0 % 12/05/18 02:56 Myelocytes % 0 % 12/05/18 02:56 Promyelocytes % 0 % 12/05/18 02:56 Blast Cells % 0 % 12/05/18 02:56 Nucleated RBC % Not Reportable 12/05/18 02:56 Seg Neutrophils # 7.7 K/mm3 (1.8-7.7) 12/06/18 05:04 Seg Neutrophils # Man 6.2 K/mm3 (1.8-7.7) 12/05/18 02:56 Band Neutrophils # 0.6 K/mm3 12/05/18 02:56 Lymphocytes # (Manual) 0.6 K/mm3 (1.2-5.4) L 12/05/18 02:56 Abs React Lymphs (Man) 0.0 K/mm3 12/05/18 02:56 Monocytes # (Manual) 0.6 K/mm3 (0.0-0.8) 12/05/18 02:56 Eosinophils # (Manual) 0.0 K/mm3 (0.0-0.4) 12/05/18 02:56 Basophils # (Manual) 0.0 K/mm3 (0.0-0.1) 12/05/18 02:56 Metamyelocytes # 0.0 K/mm3 12/05/18 02:56 Myelocytes # 0.0 K/mm3 12/05/18 02:56 Promyelocytes # 0.0 K/mm3 12/05/18 02:56 Blast Cells # 0.0 K/mm3 12/05/18 02:56 WBC Morphology Not Reportable 12/05/18 02:56 Hypersegmented Neuts Not Reportable 12/05/18 02:56 Hyposegmented Neuts Not Reportable 12/05/18 02:56 Hypogranular Neuts Not Reportable 12/05/18 02:56 Smudge Cells Not Reportable 12/05/18 02:56 Toxic Granulation Not Reportable 12/05/18 02:56 Toxic Vacuolation Not Reportable 12/05/18 02:56 Dohle Bodies Not Reportable 12/05/18 02:56 Pelger-Huet Anomaly Not Reportable 12/05/18 02:56 Janneth Rods Not Reportable 12/05/18 02:56 Platelet Estimate Appears decreased 12/05/18 02:56 Clumped Platelets Not Reportable 12/05/18 02:56 Plt Clumps, EDTA Not Reportable 12/05/18 02:56 Large Platelets Not Reportable 12/05/18 02:56 Giant Platelets Not Reportable 12/05/18 02:56 Platelet Satelliting Not Reportable 12/05/18 02:56 Plt Morphology Comment Not Reportable 12/05/18 02:56 RBC Morphology Not Reportable 12/05/18 02:56 Dimorphic RBCs Not Reportable 12/05/18 02:56 Polychromasia Not Reportable 12/05/18 02:56 Hypochromasia Not Reportable 12/05/18 02:56 Poikilocytosis Not Reportable 12/05/18 02:56 Anisocytosis Not Reportable 12/05/18 02:56 Microcytosis Not Reportable 12/05/18 02:56 Macrocytosis Not Reportable 12/05/18 02:56 Spherocytes Not Reportable 12/05/18 02:56 Pappenheimer Bodies Not Reportable 12/05/18 02:56 Sickle Cells Not Reportable 12/05/18 02:56 Target Cells Not Reportable 12/05/18 02:56 Tear Drop Cells Not Reportable 12/05/18 02:56 Ovalocytes Not Reportable 12/05/18 02:56 Helmet Cells Not Reportable 12/05/18 02:56 [place] Bodies Not Reportable 12/05/18 02:56 [place] Rings Not Reportable 12/05/18 02:56 Karissa Cells Not Reportable 12/05/18 02:56 Bite Cells Not Reportable 12/05/18 02:56 Crenated Cell Not Reportable 12/05/18 02:56 Elliptocytes Not Reportable 12/05/18 02:56 Acanthocytes (Spur) Not Reportable 12/05/18 02:56 Rouleaux Not Reportable 12/05/18 02:56 Hemoglobin C Crystals Not Reportable 12/05/18 02:56 Schistocytes Not Reportable 12/05/18 02:56 Malaria parasites Not Reportable 12/05/18 02:56 Yinka Bodies Not Reportable 12/05/18 02:56 Hem Pathologist Commnt No 12/05/18 02:56 PT 15.0 Sec. (12.2-14.9) H 11/30/18 17:59 INR 1.14 (0.87-1.13) H 11/30/18 17:59 Heparin Anti-Xa, Unfract Negative (Negative) 12/05/18 13:21 VBG pH 7.353 (7.320-7.420) 11/30/18 17:59 Sodium 140 mmol/L (137-145) 12/10/18 05:30 Potassium 4.6 mmol/L (3.6-5.0) 12/10/18 05:30 Chloride 105.1 mmol/L (98-107) 12/10/18 05:30 Carbon Dioxide 26 mmol/L (22-30) 12/10/18 05:30 Anion Gap 14 mmol/L 12/10/18 05:30 BUN 15 mg/dL (7-17) 12/10/18 05:30 Creatinine 0.5 mg/dL (0.7-1.2) L 12/10/18 05:30 Estimated GFR > 60 ml/min 12/10/18 05:30 BUN/Creatinine Ratio 30 % 12/10/18 05:30 Glucose 120 mg/dL (65-100) H 12/10/18 05:30 POC Glucose 108 (70-105) H 12/10/18 07:34 Hemoglobin A1c 7.4 % (4-6) H 12/07/18 05:30 Lactic Acid 1.40 mmol/L (0.7-2.0) 11/30/18 21:23 Calcium 7.9 mg/dL (8.4-10.2) L 12/10/18 05:30 Total Bilirubin 0.50 mg/dL (0.1-1.2) 11/30/18 17:59 AST 32 units/L (5-40) 11/30/18 17:59 ALT 20 units/L (7-56) 11/30/18 17:59 Alkaline Phosphatase 91 units/L (35-129) 11/30/18 17:59 Total Protein 5.4 g/dL (6.3-8.2) L 11/30/18 17:59 Albumin 3.0 g/dL (3.9-5) L 11/30/18 17:59 Albumin/Globulin Ratio 1.3 % 11/30/18 17:59 Urine Color Yellow (Yellow) 11/30/18 18:11 Urine Turbidity Slightly-cloudy (Clear) 11/30/18 18:11 Urine pH 5.0 (5.0-7.0) 11/30/18 18:11 Ur Specific [place] 1.014 (1.003-1.030) 11/30/18 18:11 Urine Protein 100 mg/dl mg/dL (Negative) 11/30/18 18:11 Urine Glucose (UA) Neg mg/dL (Negative) 11/30/18 18:11 Urine Ketones Neg mg/dL (Negative) 11/30/18 18:11 Urine Blood Lg (Negative) 11/30/18 18:11 Urine Nitrite Neg (Negative) 11/30/18 18:11 Urine Bilirubin Neg (Negative) 11/30/18 18:11 Urine Urobilinogen < 2.0 mg/dL (<2.0) 11/30/18 18:11 Ur Leukocyte Esterase Tr (Negative) 11/30/18 18:11 Urine WBC (Auto) 7.0 /HPF (0.0-6.0) H 11/30/18 18:11 Urine RBC (Auto) > 182.0 /HPF (0.0-6.0) 11/30/18 18:11 Urine Bacteria (Auto) 1+ /HPF (Negative) 11/30/18 18:11 Urine Mucus Few /HPF 11/30/18 18:11 Heparin-induced Plt Ab Negative (Negative) 12/05/18 13:21 UF Heparin High Dose 3 % Release 12/05/18 13:21 HAYLEY UFH Low Dose 0.1 3 % Release 12/05/18 13:21 HAYLEY UFH Low Dose 0.5 2 % Release 12/05/18 13:21 Nutrition/Malnutrition Assess - Dietary Evaluation Nutrition/Malnutrition Findings: Nutrition Notes Start: 12/05/18 16:46 Freq: Status: Active Protocol: Document 12/07/18 12:00 RYAN (Rec: 12/07/18 12:03 RYAN SRW- [email or web address]) Nutrition Notes Initial or Follow up Brief Note Current Diet Consistent CHO + Glucerna TID Labs/Tests A1c 7.4 Subjective/Other Information Pt has consumed 58% of meals since last assessment; she reports "pretty good" appetite . Says she is trying to drink ONS (observed 2 unopened cartons and one opened). She is awaiting placement. Percent of energy/protein needs met: 100% energy and pro Nutrition Intervention Follow-Up By: 12/13/18 Additional Comments F/U: intakes (meals/ONS), wt
[2018-12-10] MEDS: ROCEPHIN/NS 1 GM/50 ML 1 GM/50 ML BAG IV SCH (09:34)
[2018-12-10] MEDS: COLACE PO SCH ×2 (09:34→21:32)
[2018-12-10] MEDS: SODIUM CHLORIDE FLUSH SYRINGE 10 ML IV SCH ×2 (09:35→21:32)
[2018-12-11] MEDS: HumuLIN R SUB-Q SCH ×5 (03:55→22:17)
[2018-12-11] MEDS: COLACE PO SCH ×2 (09:12→22:16)
[2018-12-11] MEDS: ROCEPHIN/NS 1 GM/50 ML 1 GM/50 ML BAG IV SCH (09:12)
[2018-12-11] MEDS: SODIUM CHLORIDE FLUSH SYRINGE 10 ML IV SCH ×2 (09:13→22:17)
--- NOTE | 2018-12-11 15:45 | Progress Note ---
Assessment and Plan Assessment and plan: Sepsis. Blood culture reveals Proteus bacteremia Left hydronephrosis, hydroureter secondary to left distal ureteral calculi. Urology consulted. Patient is status post cystoscopy/RPG/stent Complicated Urinary tract infection. As above. Sepsis with proteus mirabilis associated hypotension. Resolved with IV fluid resuscitation. Thrombocytopenia.? Etiology sepsis versus HIT. Hold Lovenox. Hypernatremia. Resolved Hypokalemia. Replaced Diabetes mellitus type II. Uncontrolled. Continue scheduled Novolin 70/30 at 4 Units bid Continue Accu-Cheks and sliding scale. History of CVA. Supportive care. Hyperkalemia. Now resolved after Kayexalate, Deconditioning. PT recommends CHERELLE, awaiting placement. Awaiting placement History Interval history: feels better, No new complaints Awaiting placement Hospitalist Physical - Physical exam Narrative exam: GEN: Not in acute distress,lying in bed,malnourished HEENT: Normocephalic, atraumatic, Neck: supple, No JVD Lungs: Clear to auscultation, no wheeze Heart:S1 and S2 regular, no murmurs, rubs or gallop, Abd:soft, non tender, non distended, normal bowel sounds Ext: No edema, no clubbing or cyanosis Neuro: Awake,alert, oriented x 3, No focal signs Psych:Normal mood - Constitutional Vitals: Temp Pulse Resp BP Pulse Ox 98.5 F 79 18 134/69 96 12/11/18 07:03 12/11/18 07:03 12/11/18 07:03 12/11/18 07:03 12/11/18 07:03 General appearance: Present: no acute distress Results - Labs CBC & Chem 7: 12/06/18 05:04 12/10/18 05:30 Labs: Laboratory Last Values WBC 9.9 K/mm3 (4.5-11.0) 12/06/18 05:04 RBC 3.12 M/mm3 (3.65-5.03) L 12/06/18 05:04 Hgb 9.9 gm/dl (10.1-14.3) L 12/06/18 05:04 Hct 29.8 % (30.3-42.9) L 12/06/18 05:04 MCV 95 fl (79-97) 12/06/18 05:04 MCH 32 pg (28-32) 12/06/18 05:04 MCHC 33 % (30-34) 12/06/18 05:04 RDW 14.1 % (13.2-15.2) 12/06/18 05:04 Plt Count 67 K/mm3 (140-440) L 12/06/18 05:04 Lymph % (Auto) 12.2 % (13.4-35.0) L 12/06/18 05:04 [place] % (Auto) 7.8 % (0.0-7.3) H 12/06/18 05:04 Eos % (Auto) 1.9 % (0.0-4.3) 12/06/18 05:04 Baso % (Auto) 0.1 % (0.0-1.8) 12/06/18 05:04 Lymph # 1.2 K/mm3 (1.2-5.4) 12/06/18 05:04 [place] # 0.8 K/mm3 (0.0-0.8) 12/06/18 05:04 Eos # 0.2 K/mm3 (0.0-0.4) 12/06/18 05:04 Baso # 0.0 K/mm3 (0.0-0.1) 12/06/18 05:04 Add Manual Diff Complete 12/05/18 02:56 Total Counted 100 12/05/18 02:56 Seg Neutrophils % 78.0 % (40.0-70.0) H 12/06/18 05:04 Seg Neuts % (Manual) 78.0 % (40.0-70.0) H 12/05/18 02:56 Band Neutrophils % 7.0 % 12/05/18 02:56 Lymphocytes % (Manual) 8.0 % (13.4-35.0) L 12/05/18 02:56 Reactive Lymphs % (Man) 0 % 12/05/18 02:56 Monocytes % (Manual) 7.0 % (0.0-7.3) 12/05/18 02:56 Eosinophils % (Manual) 0 % (0.0-4.3) 12/05/18 02:56 Basophils % (Manual) 0 % (0.0-1.8) 12/05/18 02:56 Metamyelocytes % 0 % 12/05/18 02:56 Myelocytes % 0 % 12/05/18 02:56 Promyelocytes % 0 % 12/05/18 02:56 Blast Cells % 0 % 12/05/18 02:56 Nucleated RBC % Not Reportable 12/05/18 02:56 Seg Neutrophils # 7.7 K/mm3 (1.8-7.7) 12/06/18 05:04 Seg Neutrophils # Man 6.2 K/mm3 (1.8-7.7) 12/05/18 02:56 Band Neutrophils # 0.6 K/mm3 12/05/18 02:56 Lymphocytes # (Manual) 0.6 K/mm3 (1.2-5.4) L 12/05/18 02:56 Abs React Lymphs (Man) 0.0 K/mm3 12/05/18 02:56 Monocytes # (Manual) 0.6 K/mm3 (0.0-0.8) 12/05/18 02:56 Eosinophils # (Manual) 0.0 K/mm3 (0.0-0.4) 12/05/18 02:56 Basophils # (Manual) 0.0 K/mm3 (0.0-0.1) 12/05/18 02:56 Metamyelocytes # 0.0 K/mm3 12/05/18 02:56 Myelocytes # 0.0 K/mm3 12/05/18 02:56 Promyelocytes # 0.0 K/mm3 12/05/18 02:56 Blast Cells # 0.0 K/mm3 12/05/18 02:56 WBC Morphology Not Reportable 12/05/18 02:56 Hypersegmented Neuts Not Reportable 12/05/18 02:56 Hyposegmented Neuts Not Reportable 12/05/18 02:56 Hypogranular Neuts Not Reportable 12/05/18 02:56 Smudge Cells Not Reportable 12/05/18 02:56 Toxic Granulation Not Reportable 12/05/18 02:56 Toxic Vacuolation Not Reportable 12/05/18 02:56 Dohle Bodies Not Reportable 12/05/18 02:56 Pelger-Huet Anomaly Not Reportable 12/05/18 02:56 Janneth Rods Not Reportable 12/05/18 02:56 Platelet Estimate Appears decreased 12/05/18 02:56 Clumped Platelets Not Reportable 12/05/18 02:56 Plt Clumps, EDTA Not Reportable 12/05/18 02:56 Large Platelets Not Reportable 12/05/18 02:56 Giant Platelets Not Reportable 12/05/18 02:56 Platelet Satelliting Not Reportable 12/05/18 02:56 Plt Morphology Comment Not Reportable 12/05/18 02:56 RBC Morphology Not Reportable 12/05/18 02:56 Dimorphic RBCs Not Reportable 12/05/18 02:56 Polychromasia Not Reportable 12/05/18 02:56 Hypochromasia Not Reportable 12/05/18 02:56 Poikilocytosis Not Reportable 12/05/18 02:56 Anisocytosis Not Reportable 12/05/18 02:56 Microcytosis Not Reportable 12/05/18 02:56 Macrocytosis Not Reportable 12/05/18 02:56 Spherocytes Not Reportable 12/05/18 02:56 Pappenheimer Bodies Not Reportable 12/05/18 02:56 Sickle Cells Not Reportable 12/05/18 02:56 Target Cells Not Reportable 12/05/18 02:56 Tear Drop Cells Not Reportable 12/05/18 02:56 Ovalocytes Not Reportable 12/05/18 02:56 Helmet Cells Not Reportable 12/05/18 02:56 [place] Bodies Not Reportable 12/05/18 02:56 [place] Rings Not Reportable 12/05/18 02:56 [place] Cells Not Reportable 12/05/18 02:56 Bite Cells Not Reportable 12/05/18 02:56 Crenated Cell Not Reportable 12/05/18 02:56 Elliptocytes Not Reportable 12/05/18 02:56 Acanthocytes (Spur) Not Reportable 12/05/18 02:56 Rouleaux Not Reportable 12/05/18 02:56 Hemoglobin C Crystals Not Reportable 12/05/18 02:56 Schistocytes Not Reportable 12/05/18 02:56 Malaria parasites Not Reportable 12/05/18 02:56 [place] Bodies Not Reportable 12/05/18 02:56 Hem Pathologist Commnt No 12/05/18 02:56 PT 15.0 Sec. (12.2-14.9) H 11/30/18 17:59 INR 1.14 (0.87-1.13) H 11/30/18 17:59 Heparin Anti-Xa, Unfract Negative (Negative) 12/05/18 13:21 VBG pH 7.353 (7.320-7.420) 11/30/18 17:59 Sodium 140 mmol/L (137-145) 12/10/18 05:30 Potassium 4.6 mmol/L (3.6-5.0) 12/10/18 05:30 Chloride 105.1 mmol/L (98-107) 12/10/18 05:30 Carbon Dioxide 26 mmol/L (22-30) 12/10/18 05:30 Anion Gap 14 mmol/L 12/10/18 05:30 BUN 15 mg/dL (7-17) 12/10/18 05:30 Creatinine 0.5 mg/dL (0.7-1.2) L 12/10/18 05:30 Estimated GFR > 60 ml/min 12/10/18 05:30 BUN/Creatinine Ratio 30 % 12/10/18 05:30 Glucose 120 mg/dL (65-100) H 12/10/18 05:30 POC Glucose 180 (70-105) H 12/11/18 11:23 Hemoglobin A1c 7.4 % (4-6) H 12/07/18 05:30 Lactic Acid 1.40 mmol/L (0.7-2.0) 11/30/18 21:23 Calcium 7.9 mg/dL (8.4-10.2) L 12/10/18 05:30 Total Bilirubin 0.50 mg/dL (0.1-1.2) 11/30/18 17:59 AST 32 units/L (5-40) 11/30/18 17:59 ALT 20 units/L (7-56) 11/30/18 17:59 Alkaline Phosphatase 91 units/L (35-129) 11/30/18 17:59 Total Protein 5.4 g/dL (6.3-8.2) L 11/30/18 17:59 Albumin 3.0 g/dL (3.9-5) L 11/30/18 17:59 Albumin/Globulin Ratio 1.3 % 11/30/18 17:59 Urine Color Yellow (Yellow) 11/30/18 18:11 Urine Turbidity Slightly-cloudy (Clear) 11/30/18 18:11 Urine pH 5.0 (5.0-7.0) 11/30/18 18:11 Ur Specific [place] 1.014 (1.003-1.030) 11/30/18 18:11 Urine Protein 100 mg/dl mg/dL (Negative) 11/30/18 18:11 Urine Glucose (UA) Neg mg/dL (Negative) 11/30/18 18:11 Urine Ketones Neg mg/dL (Negative) 11/30/18 18:11 Urine Blood Lg (Negative) 11/30/18 18:11 Urine Nitrite Neg (Negative) 11/30/18 18:11 Urine Bilirubin Neg (Negative) 11/30/18 18:11 Urine Urobilinogen < 2.0 mg/dL (<2.0) 11/30/18 18:11 Ur Leukocyte Esterase Tr (Negative) 11/30/18 18:11 Urine WBC (Auto) 7.0 /HPF (0.0-6.0) H 11/30/18 18:11 Urine RBC (Auto) > 182.0 /HPF (0.0-6.0) 11/30/18 18:11 Urine Bacteria (Auto) 1+ /HPF (Negative) 11/30/18 18:11 Urine Mucus Few /HPF 11/30/18 18:11 Heparin-induced Plt Ab Negative (Negative) 12/05/18 13:21 UF Heparin High Dose 3 % Release 12/05/18 13:21 [facility] UFH Low Dose 0.1 3 % Release 12/05/18 13:21 [facility] UFH Low Dose 0.5 2 % Release 12/05/18 13:21 Nutrition/Malnutrition Assess - Dietary Evaluation Nutrition/Malnutrition Findings: Nutrition Notes Start: 12/05/18 16:46 Freq: Status: Active Protocol: Document 12/07/18 12:00 RYAN (Rec: 12/07/18 12:03 RYAN SRW- [email or web address]) Nutrition Notes Initial or Follow up Brief Note Current Diet Consistent CHO + Glucerna TID Labs/Tests A1c 7.4 Subjective/Other Information Pt has consumed 58% of meals since last assessment; she reports "pretty good" appetite . Says she is trying to drink ONS (observed 2 unopened cartons and one opened). She is awaiting placement. Percent of energy/protein needs met: 100% energy and pro Nutrition Intervention Follow-Up By: 12/13/18 Additional Comments F/U: intakes (meals/ONS), wt
[2018-12-12] MEDS: HumuLIN R SUB-Q SCH ×4 (07:30→22:33)
[2018-12-12] MEDS: ROCEPHIN/NS 1 GM/50 ML 1 GM/50 ML BAG IV SCH (09:04)
[2018-12-12] MEDS: SODIUM CHLORIDE FLUSH SYRINGE 10 ML IV SCH ×2 (09:04→22:36)
[2018-12-12] MEDS: COLACE PO SCH ×2 (09:04→22:34)
--- NOTE | 2018-12-12 15:37 | Progress Note ---
Assessment and Plan Assessment and plan: Sepsis. Blood culture reveals Proteus bacteremia Left hydronephrosis, hydroureter secondary to left distal ureteral calculi. Urology consulted. Patient is status post cystoscopy/RPG/stent Complicated Urinary tract infection. As above. Sepsis with proteus mirabilis associated hypotension. Resolved with IV fluid resuscitation. Thrombocytopenia.? Etiology sepsis versus HIT. Hold Lovenox. Hypernatremia. Resolved Hypokalemia. Replaced Diabetes mellitus type II. Uncontrolled. Continue scheduled Novolin 70/30 at 4 Units bid Continue Accu-Cheks and sliding scale. History of CVA. Supportive care. Hyperkalemia. Now resolved after Kayexalate, Deconditioning. PT recommended CHERELLE, awaiting placement. Awaiting placement History Interval history: feels better, No new complaints Awaiting placement Hospitalist Physical - Physical exam Narrative exam: GEN: Not in acute distress,lying in bed,malnourished HEENT: Normocephalic, atraumatic, Neck: supple, No JVD Lungs: Clear to auscultation, no wheeze Heart:S1 and S2 regular, no murmurs, rubs or gallop, Abd:soft, non tender, non distended, normal bowel sounds Ext: No edema, no clubbing or cyanosis Neuro: Awake,alert, oriented x 3, No focal signs Psych:Normal mood - Constitutional Vitals: Temp Pulse Resp BP Pulse Ox 98.8 F 89 18 134/74 97 12/12/18 13:47 12/12/18 13:47 12/12/18 13:47 12/12/18 13:47 12/12/18 13:47 General appearance: Present: no acute distress Results - Labs CBC & Chem 7: 12/06/18 05:04 12/10/18 05:30 Labs: Laboratory Last Values WBC 9.9 K/mm3 (4.5-11.0) 12/06/18 05:04 RBC 3.12 M/mm3 (3.65-5.03) L 12/06/18 05:04 Hgb 9.9 gm/dl (10.1-14.3) L 12/06/18 05:04 Hct 29.8 % (30.3-42.9) L 12/06/18 05:04 MCV 95 fl (79-97) 12/06/18 05:04 MCH 32 pg (28-32) 12/06/18 05:04 MCHC 33 % (30-34) 12/06/18 05:04 RDW 14.1 % (13.2-15.2) 12/06/18 05:04 Plt Count 67 K/mm3 (140-440) L 12/06/18 05:04 Lymph % (Auto) 12.2 % (13.4-35.0) L 12/06/18 05:04 [place] % (Auto) 7.8 % (0.0-7.3) H 12/06/18 05:04 Eos % (Auto) 1.9 % (0.0-4.3) 12/06/18 05:04 Baso % (Auto) 0.1 % (0.0-1.8) 12/06/18 05:04 Lymph # 1.2 K/mm3 (1.2-5.4) 12/06/18 05:04 [place] # 0.8 K/mm3 (0.0-0.8) 12/06/18 05:04 Eos # 0.2 K/mm3 (0.0-0.4) 12/06/18 05:04 Baso # 0.0 K/mm3 (0.0-0.1) 12/06/18 05:04 Add Manual Diff Complete 12/05/18 02:56 Total Counted 100 12/05/18 02:56 Seg Neutrophils % 78.0 % (40.0-70.0) H 12/06/18 05:04 Seg Neuts % (Manual) 78.0 % (40.0-70.0) H 12/05/18 02:56 Band Neutrophils % 7.0 % 12/05/18 02:56 Lymphocytes % (Manual) 8.0 % (13.4-35.0) L 12/05/18 02:56 Reactive Lymphs % (Man) 0 % 12/05/18 02:56 Monocytes % (Manual) 7.0 % (0.0-7.3) 12/05/18 02:56 Eosinophils % (Manual) 0 % (0.0-4.3) 12/05/18 02:56 Basophils % (Manual) 0 % (0.0-1.8) 12/05/18 02:56 Metamyelocytes % 0 % 12/05/18 02:56 Myelocytes % 0 % 12/05/18 02:56 Promyelocytes % 0 % 12/05/18 02:56 Blast Cells % 0 % 12/05/18 02:56 Nucleated RBC % Not Reportable 12/05/18 02:56 Seg Neutrophils # 7.7 K/mm3 (1.8-7.7) 12/06/18 05:04 Seg Neutrophils # Man 6.2 K/mm3 (1.8-7.7) 12/05/18 02:56 Band Neutrophils # 0.6 K/mm3 12/05/18 02:56 Lymphocytes # (Manual) 0.6 K/mm3 (1.2-5.4) L 12/05/18 02:56 Abs React Lymphs (Man) 0.0 K/mm3 12/05/18 02:56 Monocytes # (Manual) 0.6 K/mm3 (0.0-0.8) 12/05/18 02:56 Eosinophils # (Manual) 0.0 K/mm3 (0.0-0.4) 12/05/18 02:56 Basophils # (Manual) 0.0 K/mm3 (0.0-0.1) 12/05/18 02:56 Metamyelocytes # 0.0 K/mm3 12/05/18 02:56 Myelocytes # 0.0 K/mm3 12/05/18 02:56 Promyelocytes # 0.0 K/mm3 12/05/18 02:56 Blast Cells # 0.0 K/mm3 12/05/18 02:56 WBC Morphology Not Reportable 12/05/18 02:56 Hypersegmented Neuts Not Reportable 12/05/18 02:56 Hyposegmented Neuts Not Reportable 12/05/18 02:56 Hypogranular Neuts Not Reportable 12/05/18 02:56 Smudge Cells Not Reportable 12/05/18 02:56 Toxic Granulation Not Reportable 12/05/18 02:56 Toxic Vacuolation Not Reportable 12/05/18 02:56 Dohle Bodies Not Reportable 12/05/18 02:56 Pelger-Huet Anomaly Not Reportable 12/05/18 02:56 Janneth Rods Not Reportable 12/05/18 02:56 Platelet Estimate Appears decreased 12/05/18 02:56 Clumped Platelets Not Reportable 12/05/18 02:56 Plt Clumps, EDTA Not Reportable 12/05/18 02:56 Large Platelets Not Reportable 12/05/18 02:56 Giant Platelets Not Reportable 12/05/18 02:56 Platelet Satelliting Not Reportable 12/05/18 02:56 Plt Morphology Comment Not Reportable 12/05/18 02:56 RBC Morphology Not Reportable 12/05/18 02:56 Dimorphic RBCs Not Reportable 12/05/18 02:56 Polychromasia Not Reportable 12/05/18 02:56 Hypochromasia Not Reportable 12/05/18 02:56 Poikilocytosis Not Reportable 12/05/18 02:56 Anisocytosis Not Reportable 12/05/18 02:56 Microcytosis Not Reportable 12/05/18 02:56 Macrocytosis Not Reportable 12/05/18 02:56 Spherocytes Not Reportable 12/05/18 02:56 Pappenheimer Bodies Not Reportable 12/05/18 02:56 Sickle Cells Not Reportable 12/05/18 02:56 Target Cells Not Reportable 12/05/18 02:56 Tear Drop Cells Not Reportable 12/05/18 02:56 Ovalocytes Not Reportable 12/05/18 02:56 Helmet Cells Not Reportable 12/05/18 02:56 [place] Bodies Not Reportable 12/05/18 02:56 [place] Rings Not Reportable 12/05/18 02:56 [place] Cells Not Reportable 12/05/18 02:56 Bite Cells Not Reportable 12/05/18 02:56 Crenated Cell Not Reportable 12/05/18 02:56 Elliptocytes Not Reportable 12/05/18 02:56 Acanthocytes (Spur) Not Reportable 12/05/18 02:56 Rouleaux Not Reportable 12/05/18 02:56 Hemoglobin C Crystals Not Reportable 12/05/18 02:56 Schistocytes Not Reportable 12/05/18 02:56 Malaria parasites Not Reportable 12/05/18 02:56 [place] Bodies Not Reportable 12/05/18 02:56 Hem Pathologist Commnt No 12/05/18 02:56 PT 15.0 Sec. (12.2-14.9) H 11/30/18 17:59 INR 1.14 (0.87-1.13) H 11/30/18 17:59 Heparin Anti-Xa, Unfract Negative (Negative) 12/05/18 13:21 VBG pH 7.353 (7.320-7.420) 11/30/18 17:59 Sodium 140 mmol/L (137-145) 12/10/18 05:30 Potassium 4.6 mmol/L (3.6-5.0) 12/10/18 05:30 Chloride 105.1 mmol/L (98-107) 12/10/18 05:30 Carbon Dioxide 26 mmol/L (22-30) 12/10/18 05:30 Anion Gap 14 mmol/L 12/10/18 05:30 BUN 15 mg/dL (7-17) 12/10/18 05:30 Creatinine 0.5 mg/dL (0.7-1.2) L 12/10/18 05:30 Estimated GFR > 60 ml/min 12/10/18 05:30 BUN/Creatinine Ratio 30 % 12/10/18 05:30 Glucose 120 mg/dL (65-100) H 12/10/18 05:30 POC Glucose 229 (70-105) H 12/12/18 11:15 Hemoglobin A1c 7.4 % (4-6) H 12/07/18 05:30 Lactic Acid 1.40 mmol/L (0.7-2.0) 11/30/18 21:23 Calcium 7.9 mg/dL (8.4-10.2) L 12/10/18 05:30 Total Bilirubin 0.50 mg/dL (0.1-1.2) 11/30/18 17:59 AST 32 units/L (5-40) 11/30/18 17:59 ALT 20 units/L (7-56) 11/30/18 17:59 Alkaline Phosphatase 91 units/L (35-129) 11/30/18 17:59 Total Protein 5.4 g/dL (6.3-8.2) L 11/30/18 17:59 Albumin 3.0 g/dL (3.9-5) L 11/30/18 17:59 Albumin/Globulin Ratio 1.3 % 11/30/18 17:59 Urine Color Yellow (Yellow) 11/30/18 18:11 Urine Turbidity Slightly-cloudy (Clear) 11/30/18 18:11 Urine pH 5.0 (5.0-7.0) 11/30/18 18:11 Ur Specific [place] 1.014 (1.003-1.030) 11/30/18 18:11 Urine Protein 100 mg/dl mg/dL (Negative) 11/30/18 18:11 Urine Glucose (UA) Neg mg/dL (Negative) 11/30/18 18:11 Urine Ketones Neg mg/dL (Negative) 11/30/18 18:11 Urine Blood Lg (Negative) 11/30/18 18:11 Urine Nitrite Neg (Negative) 11/30/18 18:11 Urine Bilirubin Neg (Negative) 11/30/18 18:11 Urine Urobilinogen < 2.0 mg/dL (<2.0) 11/30/18 18:11 Ur Leukocyte Esterase Tr (Negative) 11/30/18 18:11 Urine WBC (Auto) 7.0 /HPF (0.0-6.0) H 11/30/18 18:11 Urine RBC (Auto) > 182.0 /HPF (0.0-6.0) 11/30/18 18:11 Urine Bacteria (Auto) 1+ /HPF (Negative) 11/30/18 18:11 Urine Mucus Few /HPF 11/30/18 18:11 Heparin-induced Plt Ab Negative (Negative) 12/05/18 13:21 UF Heparin High Dose 3 % Release 12/05/18 13:21 [facility] UFH Low Dose 0.1 3 % Release 12/05/18 13:21 [facility] UFH Low Dose 0.5 2 % Release 12/05/18 13:21 Nutrition/Malnutrition Assess - Dietary Evaluation Nutrition/Malnutrition Findings: Nutrition Notes Start: 12/05/18 16:46 Freq: Status: Active Protocol: Document 12/07/18 12:00 RYAN (Rec: 12/07/18 12:03 RYAN SRW- [email or web address]) Nutrition Notes Initial or Follow up Brief Note Current Diet Consistent CHO + Glucerna TID Labs/Tests A1c 7.4 Subjective/Other Information Pt has consumed 58% of meals since last assessment; she reports "pretty good" appetite . Says she is trying to drink ONS (observed 2 unopened cartons and one opened). She is awaiting placement. Percent of energy/protein needs met: 100% energy and pro Nutrition Intervention Follow-Up By: 12/13/18 Additional Comments F/U: intakes (meals/ONS), wt
[2018-12-13] MEDS: HumuLIN R SUB-Q SCH ×2 (08:25→12:48)
--- NOTE | 2018-12-13 09:49 | Progress Note ---
Assessment and Plan Assessment and plan: Sepsis. Blood culture reveals Proteus bacteremia Left hydronephrosis, hydroureter secondary to left distal ureteral calculi. Urology was consulted. Patient is status post cystoscopy/RPG/stent Complicated Urinary tract infection. As above. Sepsis associated hypotension. Resolved with IV fluid resuscitation. Thrombocytopenia. ? Etiology sepsis versus HIT. Hold Lovenox. Check HIT panel Hypernatremia. Change IV fluids to D5 W. Hypokalemia. Replete potassium as needed. Diabetes mellitus type II. Continue Accu-Cheks and sliding scale. History of CVA. Supportive care. Deconditioning. PT recommends CHERELLE, awaiting placement. History Interval history: 68-year-old woman with a history of hypertension, diabetes, CVA, hypothyroidism comes emergency room with complaints of generalized weakness since Wednesday. Also had one episodes of nausea and vomiting on Wednesday evening. She complains of left flank pain, sharp, intermittent and 5 minutes, intensity 7/10, no radiation. The patient was admitted with diagnosis of septic shock secondary to infected left distal ureteral calculi and complicated urinary tract infection. The patient was noted to have left hydronephrosis/hydroureter and sepsis associated hypotension. Patient's hypotension resolved with IV fluid hydration. Patient underwent cystoscopy/RPG/stent. Patient is doing well postoperatively. Physical therapy evaluated the patient and recommends CHERELLE. Hospitalist Physical - Constitutional Vitals: Temp Pulse Resp BP Pulse Ox 98.5 F 86 18 124/66 96 12/13/18 07:24 12/13/18 07:24 12/13/18 07:24 12/13/18 07:24 12/13/18 07:24 General appearance: Present: no acute distress - EENT Eyes: Present: PERRL, EOM intact ENT: hearing intact, clear oral mucosa, dentition normal - Neck Neck: Present: supple, normal ROM - Respiratory Respiratory effort: normal Respiratory: bilateral: CTA - Cardiovascular Rhythm: regular Heart Sounds: Present: S1 & S2. Absent: gallop, rub - Extremities Extremities: no ischemia, No edema, Full ROM - Abdominal General gastrointestinal: soft, non-tender, non-distended, normal bowel sounds - Integumentary Integumentary: Present: clear, warm, dry - Neurologic Neurologic: CNII-XII intact, moves all extremities Results - Labs CBC & Chem 7: 12/06/18 05:04 12/10/18 05:30 Labs: Laboratory Last Values WBC 9.9 K/mm3 (4.5-11.0) 12/06/18 05:04 RBC 3.12 M/mm3 (3.65-5.03) L 12/06/18 05:04 Hgb 9.9 gm/dl (10.1-14.3) L 12/06/18 05:04 Hct 29.8 % (30.3-42.9) L 12/06/18 05:04 MCV 95 fl (79-97) 12/06/18 05:04 MCH 32 pg (28-32) 12/06/18 05:04 MCHC 33 % (30-34) 12/06/18 05:04 RDW 14.1 % (13.2-15.2) 12/06/18 05:04 Plt Count 67 K/mm3 (140-440) L 12/06/18 05:04 Lymph % (Auto) 12.2 % (13.4-35.0) L 12/06/18 05:04 [place] % (Auto) 7.8 % (0.0-7.3) H 12/06/18 05:04 Eos % (Auto) 1.9 % (0.0-4.3) 12/06/18 05:04 Baso % (Auto) 0.1 % (0.0-1.8) 12/06/18 05:04 Lymph # 1.2 K/mm3 (1.2-5.4) 12/06/18 05:04 [place] # 0.8 K/mm3 (0.0-0.8) 12/06/18 05:04 Eos # 0.2 K/mm3 (0.0-0.4) 12/06/18 05:04 Baso # 0.0 K/mm3 (0.0-0.1) 12/06/18 05:04 Add Manual Diff Complete 12/05/18 02:56 Total Counted 100 12/05/18 02:56 Seg Neutrophils % 78.0 % (40.0-70.0) H 12/06/18 05:04 Seg Neuts % (Manual) 78.0 % (40.0-70.0) H 12/05/18 02:56 Band Neutrophils % 7.0 % 12/05/18 02:56 Lymphocytes % (Manual) 8.0 % (13.4-35.0) L 12/05/18 02:56 Reactive Lymphs % (Man) 0 % 12/05/18 02:56 Monocytes % (Manual) 7.0 % (0.0-7.3) 12/05/18 02:56 Eosinophils % (Manual) 0 % (0.0-4.3) 12/05/18 02:56 Basophils % (Manual) 0 % (0.0-1.8) 12/05/18 02:56 Metamyelocytes % 0 % 12/05/18 02:56 Myelocytes % 0 % 12/05/18 02:56 Promyelocytes % 0 % 12/05/18 02:56 Blast Cells % 0 % 12/05/18 02:56 Nucleated RBC % Not Reportable 12/05/18 02:56 Seg Neutrophils # 7.7 K/mm3 (1.8-7.7) 12/06/18 05:04 Seg Neutrophils # Man 6.2 K/mm3 (1.8-7.7) 12/05/18 02:56 Band Neutrophils # 0.6 K/mm3 12/05/18 02:56 Lymphocytes # (Manual) 0.6 K/mm3 (1.2-5.4) L 12/05/18 02:56 Abs React Lymphs (Man) 0.0 K/mm3 12/05/18 02:56 Monocytes # (Manual) 0.6 K/mm3 (0.0-0.8) 12/05/18 02:56 Eosinophils # (Manual) 0.0 K/mm3 (0.0-0.4) 12/05/18 02:56 Basophils # (Manual) 0.0 K/mm3 (0.0-0.1) 12/05/18 02:56 Metamyelocytes # 0.0 K/mm3 12/05/18 02:56 Myelocytes # 0.0 K/mm3 12/05/18 02:56 Promyelocytes # 0.0 K/mm3 12/05/18 02:56 Blast Cells # 0.0 K/mm3 12/05/18 02:56 WBC Morphology Not Reportable 12/05/18 02:56 Hypersegmented Neuts Not Reportable 12/05/18 02:56 Hyposegmented Neuts Not Reportable 12/05/18 02:56 Hypogranular Neuts Not Reportable 12/05/18 02:56 Smudge Cells Not Reportable 12/05/18 02:56 Toxic Granulation Not Reportable 12/05/18 02:56 Toxic Vacuolation Not Reportable 12/05/18 02:56 Dohle Bodies Not Reportable 12/05/18 02:56 Pelger-Huet Anomaly Not Reportable 12/05/18 02:56 Janneth Rods Not Reportable 12/05/18 02:56 Platelet Estimate Appears decreased 12/05/18 02:56 Clumped Platelets Not Reportable 12/05/18 02:56 Plt Clumps, EDTA Not Reportable 12/05/18 02:56 Large Platelets Not Reportable 12/05/18 02:56 Giant Platelets Not Reportable 12/05/18 02:56 Platelet Satelliting Not Reportable 12/05/18 02:56 Plt Morphology Comment Not Reportable 12/05/18 02:56 RBC Morphology Not Reportable 12/05/18 02:56 Dimorphic RBCs Not Reportable 12/05/18 02:56 Polychromasia Not Reportable 12/05/18 02:56 Hypochromasia Not Reportable 12/05/18 02:56 Poikilocytosis Not Reportable 12/05/18 02:56 Anisocytosis Not Reportable 12/05/18 02:56 Microcytosis Not Reportable 12/05/18 02:56 Macrocytosis Not Reportable 12/05/18 02:56 Spherocytes Not Reportable 12/05/18 02:56 Pappenheimer Bodies Not Reportable 12/05/18 02:56 Sickle Cells Not Reportable 12/05/18 02:56 Target Cells Not Reportable 12/05/18 02:56 Tear Drop Cells Not Reportable 12/05/18 02:56 Ovalocytes Not Reportable 12/05/18 02:56 Helmet Cells Not Reportable 12/05/18 02:56 [place] Bodies Not Reportable 12/05/18 02:56 [place] Rings Not Reportable 12/05/18 02:56 Karissa Cells Not Reportable 12/05/18 02:56 Bite Cells Not Reportable 12/05/18 02:56 Crenated Cell Not Reportable 12/05/18 02:56 Elliptocytes Not Reportable 12/05/18 02:56 Acanthocytes (Spur) Not Reportable 12/05/18 02:56 Rouleaux Not Reportable 12/05/18 02:56 Hemoglobin C Crystals Not Reportable 12/05/18 02:56 Schistocytes Not Reportable 12/05/18 02:56 Malaria parasites Not Reportable 12/05/18 02:56 Yinka Bodies Not Reportable 12/05/18 02:56 Hem Pathologist Commnt No 12/05/18 02:56 PT 15.0 Sec. (12.2-14.9) H 11/30/18 17:59 INR 1.14 (0.87-1.13) H 11/30/18 17:59 Heparin Anti-Xa, Unfract Negative (Negative) 12/05/18 13:21 VBG pH 7.353 (7.320-7.420) 11/30/18 17:59 Sodium 140 mmol/L (137-145) 12/10/18 05:30 Potassium 4.6 mmol/L (3.6-5.0) 12/10/18 05:30 Chloride 105.1 mmol/L (98-107) 12/10/18 05:30 Carbon Dioxide 26 mmol/L (22-30) 12/10/18 05:30 Anion Gap 14 mmol/L 12/10/18 05:30 BUN 15 mg/dL (7-17) 12/10/18 05:30 Creatinine 0.5 mg/dL (0.7-1.2) L 12/10/18 05:30 Estimated GFR > 60 ml/min 12/10/18 05:30 BUN/Creatinine Ratio 30 % 12/10/18 05:30 Glucose 120 mg/dL (65-100) H 12/10/18 05:30 POC Glucose 107 (70-105) H 12/13/18 07:29 Hemoglobin A1c 7.4 % (4-6) H 12/07/18 05:30 Lactic Acid 1.40 mmol/L (0.7-2.0) 11/30/18 21:23 Calcium 7.9 mg/dL (8.4-10.2) L 12/10/18 05:30 Total Bilirubin 0.50 mg/dL (0.1-1.2) 11/30/18 17:59 AST 32 units/L (5-40) 11/30/18 17:59 ALT 20 units/L (7-56) 11/30/18 17:59 Alkaline Phosphatase 91 units/L (35-129) 11/30/18 17:59 Total Protein 5.4 g/dL (6.3-8.2) L 11/30/18 17:59 Albumin 3.0 g/dL (3.9-5) L 11/30/18 17:59 Albumin/Globulin Ratio 1.3 % 11/30/18 17:59 Urine Color Yellow (Yellow) 11/30/18 18:11 Urine Turbidity Slightly-cloudy (Clear) 11/30/18 18:11 Urine pH 5.0 (5.0-7.0) 11/30/18 18:11 Ur Specific [place] 1.014 (1.003-1.030) 11/30/18 18:11 Urine Protein 100 mg/dl mg/dL (Negative) 11/30/18 18:11 Urine Glucose (UA) Neg mg/dL (Negative) 11/30/18 18:11 Urine Ketones Neg mg/dL (Negative) 11/30/18 18:11 Urine Blood Lg (Negative) 11/30/18 18:11 Urine Nitrite Neg (Negative) 11/30/18 18:11 Urine Bilirubin Neg (Negative) 11/30/18 18:11 Urine Urobilinogen < 2.0 mg/dL (<2.0) 11/30/18 18:11 Ur Leukocyte Esterase Tr (Negative) 11/30/18 18:11 Urine WBC (Auto) 7.0 /HPF (0.0-6.0) H 11/30/18 18:11 Urine RBC (Auto) > 182.0 /HPF (0.0-6.0) 11/30/18 18:11 Urine Bacteria (Auto) 1+ /HPF (Negative) 11/30/18 18:11 Urine Mucus Few /HPF 11/30/18 18:11 Heparin-induced Plt Ab Negative (Negative) 12/05/18 13:21 UF Heparin High Dose 3 % Release 12/05/18 13:21 HAYLEY UFH Low Dose 0.1 3 % Release 12/05/18 13:21 HAYLEY UFH Low Dose 0.5 2 % Release 12/05/18 13:21 Nutrition/Malnutrition Assess - Dietary Evaluation Nutrition/Malnutrition Findings: Nutrition Notes Start: 12/05/18 16:46 Freq: Status: Active Protocol: Document 12/07/18 12:00 RYAN (Rec: 12/07/18 12:03 RYAN [email or web address]) Nutrition Notes Initial or Follow up Brief Note Current Diet Consistent CHO + Glucerna TID Labs/Tests A1c 7.4 Subjective/Other Information Pt has consumed 58% of meals since last assessment; she reports "pretty good" appetite . Says she is trying to drink ONS (observed 2 unopened cartons and one opened). She is awaiting placement. Percent of energy/protein needs met: 100% energy and pro Nutrition Intervention Follow-Up By: 12/13/18 Additional Comments F/U: intakes (meals/ONS), wt
[2018-12-13] MEDS: COLACE PO SCH (10:26)
[2018-12-13] MEDS: SODIUM CHLORIDE FLUSH SYRINGE 10 ML IV SCH (10:28)
[2018-12-13] MEDS: ROCEPHIN/NS 1 GM/50 ML 1 GM/50 ML BAG IV SCH (10:33)
--- NOTE | 2018-12-13 12:06 | Discharge Summary ---
Providers - Providers Date of Admission: 11/30/18 21:41 Date of discharge: 12/13/18 Attending physician: ROSITA BLANK 12/01/18 08:35 Consult to Physician [CONS] Routine Comment: Consulting Provider: MAXIME MARCANO Physician Instructions: already contacted Reason For Exam: left ureteral obstruction with fever 12/02/18 14:12 Physical Therapy Evaluation and Treat [CONS] Routine Comment: Reason For Exam: deconditioning Primary care physician: PSYCHOLOGICAL ASSISTANT Hospitalization Reason for admission: sepsis Condition: Fair Hospital course: 68-year-old woman with a history of hypertension, diabetes, CVA, hypothyroidism comes emergency room with complaints of generalized weakness since Wednesday PIANO STRINGER. Also had one episode of nausea and vomiting on Wednesday evening. She complained of left flank pain, sharp, intermittent and 5 minutes, intensity 7/10, no radiation. The patient was admitted with diagnosis of septic shock secondary to infected left distal ureteral calculi and complicated urinary tract infection. The patient was noted to have left hydronephrosis/hydroureter and sepsis associated hypotension. Patient's hypotension resolved with IV fluid hydration. Patient underwent cystoscopy/RPG/stent. Patient did well postoperatively. Physical therapy evaluated the patient and recommends CHERELLE. Case management was consult and patient will be discharged to [facility]. Dedicated discharge time 35 minutes. Disposition: TO HOME OR SELFCARE Time spent for discharge: 35 - Discharge Diagnoses (1) Ureteral calculi Status: Acute (2) Renal colic on left side Status: Acute (3) Sepsis Status: Acute (4) Hypothyroidism Status: Acute Core Measure Documentation - Palliative Care Palliative Care/ Comfort Measures: Not Applicable - Core Measures Any of the following diagnoses?: none Exam - Constitutional Vitals: Temp Pulse Resp BP Pulse Ox 98.5 F 86 18 124/66 96 12/13/18 07:24 12/13/18 07:24 12/13/18 07:24 12/13/18 07:24 12/13/18 07:24 General appearance: Present: no acute distress, well-nourished - EENT Eyes: Present: PERRL ENT: hearing intact, clear oral mucosa - Neck Neck: Present: supple, normal ROM - Respiratory Respiratory effort: normal Respiratory: bilateral: CTA - Cardiovascular Heart Sounds: Present: S1 & S2. Absent: rub, click - Extremities Extremities: pulses symmetrical, No edema Peripheral Pulses: within normal limits - Abdominal General gastrointestinal: Present: soft, non-tender, non-distended, normal bowel sounds Female genitourinary: Present: normal - Integumentary Integumentary: Present: clear, warm, dry - Musculoskeletal Musculoskeletal: gait normal, strength equal bilaterally - Psychiatric Psychiatric: appropriate mood/affect, intact judgment & insight - Neurologic Neurologic: CNII-XII intact, moves all extremities Plan Activity: advance as tolerated Weight Bearing Status: Weight Bear as Tolerated Diet: diabetic Follow up with: PRIMARY CARE, [Primary Care Provider] - 3-5 Days
[2018-12-13 16:14] VITALS: BP 141/76
== END 2018-12-13 16:05 | DRG 853 ==
LOC: ED 16:42 → IMCU 21:41 → CC1 12-01 08:39 → IMCU 12-01 09:32 → 2B-ACE 12-02 23:32 → UNDODISIN 12-12 21:35
PROVIDERS: ADMIT Internal Medicine; ATTEND Hospitalist
PROC: 0T778DZ Dilation of Left Ureter with Intraluminal Device, Via Natural or Artificial Opening Endoscopic (ICD-10-PCS; principal; 2018-12-01)
PROC: BT1F1ZZ Fluoroscopy of Left Kidney, Ureter and Bladder using Low Osmolar Contrast (ICD-10-PCS; 2018-12-01)
DX: A41.9 Sepsis, unspecified organism (principal); R65.21 Severe sepsis with septic shock; E87.0 Hyperosmolality and hypernatremia; N13.6 Pyonephrosis; N39.0 Urinary tract infection, site not specified; E87.6 Hypokalemia; D69.6 Thrombocytopenia, unspecified; B96.4 Proteus (mirabilis) (morganii) as the cause of diseases classified elsewhere; E87.5 Hyperkalemia; I10 Essential (primary) hypertension; E03.9 Hypothyroidism, unspecified; E11.9 Type 2 diabetes mellitus without complications; Z86.73 Personal history of transient ischemic attack (TIA), and cerebral infarction without residual deficits; Z90.49 Acquired absence of other specified parts of digestive tract; Z90.89 Acquired absence of other organs; Z82.49 Family history of ischemic heart disease and other diseases of the circulatory system; Z79.899 Other long term (current) drug therapy; Z79.84 Long term (current) use of oral hypoglycemic drugs
CPT/HCPCS: 36415; 71045; 74176; 74420; 80048; 80053; 81001; 82140; 82805; 82962; 83036; 85007; 85025; 85610; 86022; 87040; 87076; 87086; 87186; 93005; 93010; 96361; 96374; 96375; G0378; A4217; C1758; C1769; C2617; J0692; J0696; J1650; J1815; J2543; J3010; J3370; J3480; J7030; J7040; J7050; J7070; J7120; P9047; Q9967

== ENCOUNTER 2019-01-23 07:47 | Day surgery (SDC) | payer MEDICARE ==
[2019-01-23] MEDS ORDERED: DILAUDID IV PRN (08:39)
[2019-01-23] MEDS ORDERED: SUBLIMAZE IV PRN (08:39)
--- NOTE | 2019-01-23 08:41 | Anesthesia Day of Surgery ---
Anesthesia Day of Surgery - Day of Surgery Patient Examined: Yes Patient H&P Reviewed: Yes Patient is NPO: Yes
--- NOTE | 2019-01-23 08:44 | Anesthesia Consultation ---
Anesthesia Consult and Med Hx Date of service: 01/23/19 - Airway Anesthetic Teeth Evaluation: Chipped ROM Head & Neck: Adequate Mental/Hyoid Distance: Adequate Mallampati Class: Class II Intubation Access Assessment: Probably Good - Pre-Operative Health Status ASA Pre-Surgery Classification: ASA3 Proposed Anesthetic Plan: General - Pulmonary Hx Smoking: No Hx Sleep Apnea: No (MANUEL PRE SCREEN LOW RISK) - Cardiovascular System Hx Hypertension: Yes (X 8 YRS) - Central Nervous System CVA: Yes (RT SIDED WEAKNESS AND DIFFICULTY TALKING) Hx Psychiatric Problems: Yes (Depression) - Gastrointestinal Hx Ulcer: No (Colectomy) - Endocrine Hx Renal Disease: Yes (Stones; Sepsis from stone 11/2018) Hx Non-Insulin Dependent Diabetes: Yes Hx Thyroid Disease: Yes (Thyroidectomy) Hx Hypothyroidism: Yes - Other Systems Hx Cancer: No
[2019-01-23] MEDS ORDERED: LACTATED RINGERS 1,000 ML IV SCH (09:00)
[2019-01-23] MEDS ORDERED: SUBLIMAZE ONE (09:21)
[2019-01-23] MEDS ORDERED: DIPRIVAN 10 MG/ML IV ONE (09:21)
[2019-01-23] MEDS ORDERED: WATER FOR IRRIG STERILE IR ONE (09:22)
[2019-01-23] MEDS ORDERED: OMNIPAQUE (240mg) IV ONE (09:22)
[2019-01-23] MEDS ORDERED: XYLOCAINE CARDIAC IV ONE (09:23)
[2019-01-23] MEDS ORDERED: ANCEF/STERILE WATER 2 GM/20 ML 2 GM/20 ML SYRINGE IV NR (09:30)
[2019-01-23] MEDS ORDERED: ZOFRAN ONE (09:54)
--- NOTE | 2019-01-23 10:18 | Post Operative Note ---
Date of procedure: 01/23/19 Pre-op diagnosis: l ureteral stone Post-op diagnosis: same Findings: stones Procedure: cysto L ureterosciopy stone extr Anesthesia: GETA Surgeon: MAXIME MARCANO Estimated blood loss: none Pathology: list (stone) Specimen disposition: to lab Condition: stable Disposition: PACU
--- NOTE | 2019-01-23 10:19 | Discharge Summary ---
Short Stay Discharge Plan Activity: other (inc fluids ) Weight Bearing Status: Full Weight Bearing Diet: regular Special Instructions: other (inc fluids ) Follow up with: CELINA HADDAD MD [Primary Care Provider] - 7 Days MAXIME MARCANO MD [Staff Physician] - 7 Days
--- NOTE | 2019-01-23 11:37 | Post Anesthesia Evaluation ---
- Post Anesthesia Evaluation Patient Participated: Yes Airway Patent: Yes Stable Respiratory Function: Yes Nausea/Vomiting: No Temp > 96.8F: Yes Pain Manageable: Yes Adequeate Hydration: Yes Anesthesia Complications: No (Pt has a rash noted in Phase 2. On her chin and neck. Pt denies resp sxs) Block Receding Appropriately: Not Applicable (Rash does not itch or bother her. I advised pt and her sister to monitor it at home) Patient on Ventilator: No
[2019-01-23 11:40] VITALS: BP 134/65
--- NOTE | 2019-01-23 11:55 | Operative Report ---
PREOPERATIVE DIAGNOSES: Left distal ureteral stone, large left renal stone. POSTOPERATIVE DIAGNOSES: Left distal ureteral stone, large left renal stone. PROCEDURES: Cystoscopy, bilateral retrograde, left ureteroscopy with stone extraction, double-J stent reinsertion. SURGEON: Beni Miles MD ANESTHESIA: General. FINDINGS: This is a woman, who presented septic, had a distal stone. She has a very low lying right kidney as well. She now presents for treatment. She also has a large stone in lower pole, which we will leave undisturbed. DESCRIPTION OF PROCEDURE: The patient brought to the operating room and placed on the operating table. Following induction of anesthesia, placed in lithotomy position, prepped and draped in usual sterile fashion. Cystourethroscopy showed the stent in the left kidney and bladder. The right kidney on retrograde was very ptotic. There was no persistent filling defect. The stent was withdrawn and ureteroscopy showed a large stone. It was extracted with a 3-prong grasper and the basket in the bladder. The patient tolerated the procedure well. The stent was replaced with a string. The patient tolerated the procedure well and brought to recovery in stable condition. JOB# [id number] UMER/FUNMILAYO
--- NOTE | 2019-01-24 07:26 | Fluoroscopy Report ---
FLUOROSCOPY RETROGRADE UROGRAPHY: HISTORY: Left ureteral stone. FINDINGS: Fluoroscopy was provided by radiology during retrograde urography by the urologist. 4 fluoroscopic images were captured. [employer] film demonstrates a left ureteral stent in good position. A 1.6 cm calcification overlies the expected position of the inferior pole of the left kidney. Left ureteral stent replacement was performed. The operative notes mention removal of a left ureteral stone as well. Please correlate with the procedural report. Images of the right retrograde pyelogram are within normal limits. IMPRESSION: Left ureteral stent exchange. Left ureteral stone removal. Large left renal calculus remains.
== END 2019-01-23 11:55 | disposition home or self-care (01) ==
LOC: OR 07:47
PROVIDERS: ATTEND Urology
DX: N20.2 Calculus of kidney with calculus of ureter (principal); I10 Essential (primary) hypertension; E11.9 Type 2 diabetes mellitus without complications; E78.00 Pure hypercholesterolemia, unspecified; E89.0 Postprocedural hypothyroidism; F32.9 Major depressive disorder, single episode, unspecified; Z91.81 History of falling; Z83.3 Family history of diabetes mellitus; Z87.440 Personal history of urinary (tract) infections; Z79.82 Long term (current) use of aspirin; Z86.73 Personal history of transient ischemic attack (TIA), and cerebral infarction without residual deficits; Z79.899 Other long term (current) drug therapy; Z79.01 Long term (current) use of anticoagulants; Z79.84 Long term (current) use of oral hypoglycemic drugs; Z98.890 Other specified postprocedural states
CPT/HCPCS: 52332; 52352; 74420; 82962; A4217; C1726; C1758; C1769; C2617; J0690; J2001; J2405; J2704; J3010; J7120; Q9967